=== PATIENT | female | born 1970 | race Caucasian/White ===

== ENCOUNTER 2016-11-27 10:11 | Emergency (ER) | payer MEDICAID ==
[~2016-11-27] VITALS: Ht 160 cm; Wt 52.6 kg
[~2016-11-27 10:11] MED LIST: ACHYD1T PO; CETI5TAB6 PO; CITA20TA4 PO; DCS100C PO; DICY10CA26 PO; FEXO180T84 PO; FLUT10SP NS; FLUT9.9S NS; IBP800T PO; LACT1CAP62 PO; LORA1TAB PO; MELA1TAB9 PO; MULT-963 PO; OMEG1CAP51 PO; ONDA8TAB13 PO; PROBIOTIC1 EACH PO; THIA50TA7 PO; TRM50T PO
--- OUTSIDE RECORDS SUMMARY | 2016-11-27 10:19 | XMS REPORT | Continuity of Care Document ---
Author Author Interface Organization Interface Address Unknown Phone Unavailable Problems Problem Status Onset Date Classification Date Reported Comments Source Medications Medication Details Route Status Patient Instructions Ordering Provider Order Date Source Allergies, Adverse Reactions, Alerts Substance Category Reaction Severity Reaction type Status Date Reported Comments Source Immunizations Immunization Date Given Site Status Last Updated Comments Source Results Order Name Results Value Reference Range Date Interpretation Comments Source Vital Signs Vital Sign Value Date Comments Source Encounters Location Location Details Encounter Type Encounter Number Reason For Visit Attending Provider ADM Date DC Date Status Source CMB CMB REF [id number] lab work Yvonne Swain 08/16/[address] [facility] Procedures Procedure Code Date Perfomer Comments Source
[2016-11-27 10:45] LABS: BASOPHILS % (AUTO) 0 % (0-10); EOSINOPHILS % (AUTO) 0 % (0-10); LYMPHOCYTES # (AUTO) 1.7 X 10^3 (1.0-4.0); LYMPHOCYTES % (AUTO) 14 % (12-44); MEAN CORPUSCULAR HEMOGLOBIN 31 PG (25-34); MEAN CORPUSCULAR HGB CONC 35 G/DL (32-36); MEAN CORPUSCULAR VOLUME 90 FL (80-99); MEAN PLATELET VOLUME 8.9 FL (7.4-10.4); MONOCYTES # (AUTO) 0.4 X 10^3 (0.0-1.0); MONOCYTES % (AUTO) 3 % (0-12); NEUTROPHILS # (AUTO) 10.7 X 10^3 (1.8-7.8); NEUTROPHILS % (AUTO) 83 % (42-75); PLATELET COUNT 282 10^3/uL (130-400); RED BLOOD COUNT 5.09 10^6/uL (4.35-5.85); RED CELL DISTRIBUTION WIDTH 13.2 % (10.0-14.5); WHITE BLOOD COUNT 12.9 10^3/uL (4.3-11.0)
[2016-11-27 10:45] LABS: BILIRUBIN,URINE NEGATIVE (NEGATIVE); KETONES,URINE 4+ (NEGATIVE); LEUKOCYTE ESTERASE ,URINE NEGATIVE (NEGATIVE); NITRITE,URINE NEGATIVE (NEGATIVE); PH,URINE 5 (5-9); PROTEIN,URINE 1+ (NEGATIVE); UROBILINOGEN,URINE NORMAL (NORMAL)
[2016-11-27] MEDS ORDERED: LORazepam INJ 2 MG/ML (ATIVAN) VIAL IVP ONE ×2 (10:45→11:30)
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
[2016-11-27 10:59] LABS: WBC,URINE 0-2 /HPF
[2016-11-27] MEDS: LACTATED RINGERS 1,000 ML IV SCH ×4 (11:00→12:25)
[2016-11-27 11:02] LABS: ALANINE AMINOTRANSFERASE 34 U/L (0-55); ALBUMIN 4.6 G/DL (3.2-4.5); ANION GAP 17 MMOL/L (5-14); ASPARTATE AMINO TRANSFERASE 64 U/L (5-34); BILIRUBIN,TOTAL 0.9 MG/DL (0.1-1.0); BLOOD UREA NITROGEN 22 MG/DL (7-18); BUN/CREATININE RATIO 24; CALCIUM 9.7 MG/DL (8.5-10.1); CARBON DIOXIDE 21 MMOL/L (21-32); CHLORIDE 96 MMOL/L (98-107); GFR ESTIMATED > 60; GLUCOSE 195 MG/DL (70-105); POTASSIUM 4.3 MMOL/L (3.6-5.0); SODIUM 134 MMOL/L (135-145); TOTAL PROTEIN 7.4 G/DL (6.4-8.2)
[2016-11-27 11:05] LABS: ALCOHOL < 10 MG/DL (<10)
[2016-11-27 11:22] LABS: THYROID STIMULATING HORMONE 0.58 UIU/ML (0.35-4.94)
[2016-11-27] MEDS ORDERED: CHLO25CA10 PO (11:48)
[2016-11-27 14:02] VITALS: BP 125/71
== END 2016-11-27 14:02 | disposition home or self-care (01) ==
LOC: EDUNIT# 10:11 → ER 10:15
DX: K52.9 Noninfective gastroenteritis and colitis, unspecified (principal); F10.231 Alcohol dependence with withdrawal delirium; F41.9 Anxiety disorder, unspecified
CPT/HCPCS: 36415; 80053; 80306; 80320; 81000; 84443; 85025; 85610; 96374; 96376

== ENCOUNTER 2017-11-13 10:38 | Emergency (ER) | payer MEDICAID ==
[~2017-11-13] VITALS: Ht 160 cm; Wt 52.6 kg
[~2017-11-13 10:38] MED LIST changes: +CHLO25CA10 PO
--- OUTSIDE RECORDS SUMMARY | 2017-11-13 11:08 | XMS REPORT ---
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 Active Problem DTAP TEST V06.1 Active 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 Problem Need for prophylactic vaccination and inoculation, Influenza V04.81 Active Problem Bipolar disorder, unspecified 296.80 Active Problem Hemorrhoids 455.6 Active Problem Alcoholism 303.90 Active Problem Allergic rhinitis due to pollen 477.0 Active Problem Unspecified breast screening V76.10 Active Problem Constipation 564.00 Active Problem POLIO (IPV) DX V04.0 Active Problem Routine general medical examination at health care facility V70.0 Active Problem Abdominal pain, right lower quadrant 789.03 Active Problem Environmental allergies V15.09 Active Problem Pain in joint, shoulder region 719.41 Active Problem MMR DX V06.4 Active Problem STATE HEP A (ADULT) DX V05.3 Active Problem Pain in soft tissues of limb 729.5 Active Problem VARICELLA DX V05.4 Active Problem Other atopic dermatitis and related conditions 691.8 Active Problem Unspecified sleep disturbance 780.50 Active Problem Pain in joint, forearm 719.43 Active Problem Abdominal pain, right upper quadrant 789.01 Active Medications No Known Medications Procedures Procedure Coding System Code Date SINGLE IMMUNIZATION ADMIN CPT-4 20922 Sep 27, 2015 FLUARIX QUAD (3 & UP)-GSK-2014 CPT-4 00305 Sep 27, 2015 Results No Known Results Immunizations Vaccine Administration Date FLUARIX QUAD (3 & UP)-GSK-2014Sep 27, 2015 Summary Purpose eClinical[employer] Submission
--- OUTSIDE RECORDS SUMMARY | 2017-11-13 11:08 | XMS REPORT | Continuity of Care Document ---
Author Author [employer] Organization [facility] Address Unknown Phone Unavailable Care Team Providers Care Acidizer Water Well Name Role Phone [employer] Unavailable Unavailable Problems Medications Allergies, Adverse Reactions, Alerts Immunizations Results Vital Signs Encounters Procedures Plan of Care Social History Assessment and Plan Family History Value Date Source Advance Directives Order Name Results Value Date Source
--- OUTSIDE RECORDS SUMMARY | 2017-11-13 11:08 | XMS REPORT ---
Author BRUNILDA Sandoval Organization [employer] Address Unknown Phone Unavailable Care Team Providers Care Roof Tiler Name Role Phone BRUNILDA ARNETT CP Unavailable Allergies No Known Allergies Problems Problem Type Condition Code Onset Dates Condition Status Problem Insomnia G47.00 Active Assessment Encounter for immunization Z23 Active Problem Environmental allergies Z91.09 Active Medications No Known Medications Procedures Procedure Coding System Code Date SINGLE IMMUNIZATION ADMIN CPT-4 27966 Oct 05, 2016 FLUARIX QUAD P-FREE 3 AND UP .50 2015 CPT-4 58356 Oct 05, 2016 Results No Known Results Immunizations Vaccine Administration Date FLUARIX QUAD P-FREE 3 AND UP .50 2015Oct 05, 2016 Summary Purpose e[employer]Works Submission
--- OUTSIDE RECORDS SUMMARY | 2017-11-13 11:08 | XMS REPORT ---
Author Author TRACE ZIMMERMAN [facility] Address [address] [place] [address] Care Team Providers Care Senior Government Program Analyst Name Role Phone TRACE ZIMMERMAN Unavailable PROBLEMS Type Condition ICD9-CM Code [id number] Code Onset Dates Condition Status SNOMED Code Problem Alcohol consumption binge drinking F10.10 Active 175031185 Problem Alcohol use disorder, severe, dependence F10.20 Active 583871132 Problem Environmental allergies Z91.09 Active 588922347 Problem Insomnia G47.00 Active 842741738 ALLERGIES Unknown Allergies SOCIAL HISTORY No smoking Hx information available PLAN OF CARE VITAL SIGNS MEDICATIONS Unknown Medications RESULTS No Results PROCEDURES Procedure Date Ordered Related Diagnosis Body Site Alcohol and/or drug services Dec 03, 2016 IMMUNIZATIONS No Known Immunizations
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
--- OUTSIDE RECORDS SUMMARY | 2017-11-13 11:09 | XMS REPORT ---
Author Author PETR JENNINGS Organization [facility] Address [address] [place] [address] Care Team Providers Care Stock Selector Name Role Phone PETR JENNINGS Unavailable PROBLEMS Type Condition ICD9-CM Code [id number] Code Onset Dates Condition Status SNOMED Code Problem Alcohol consumption binge drinking F10.10 Active 090677379 Problem Alcohol use disorder, severe, dependence F10.20 Active 477089522 Problem Environmental allergies Z91.09 Active 832825262 Problem Insomnia G47.00 Active 151489793 ALLERGIES Unknown Allergies SOCIAL HISTORY No smoking Hx information available PLAN OF CARE VITAL SIGNS MEDICATIONS Unknown Medications RESULTS No Results PROCEDURES No Known procedures IMMUNIZATIONS No Known Immunizations
--- OUTSIDE RECORDS SUMMARY | 2017-11-13 11:09 | XMS REPORT ---
Author Author BARRON VAMSI Organization [facility] Address [address] [place] [address] Care Team Providers Care Road Production General Manager Name Role Phone VAMSI MART Unavailable PROBLEMS Type Condition ICD9-CM Code GCF78-QI Code Onset Dates Condition Status SNOMED Code Problem Mixed hyperlipidemia E78.2 Active 303501275 Problem Generalized anxiety disorder F41.1 Active 50154059 Problem ADHD (attention deficit hyperactivity disorder), combined type F90.2 Active 42953352 Problem Environmental allergies Z91.09 Active 688508182 Problem Insomnia G47.00 Active 661746039 Problem Alcohol consumption binge drinking F10.10 Active 189920553 Problem Alcohol use disorder, severe, dependence F10.20 Active 527881665 ALLERGIES No Information SOCIAL HISTORY Never Assessed PLAN OF CARE VITAL SIGNS MEDICATIONS Unknown [...]
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
--- OUTSIDE RECORDS SUMMARY | 2017-11-13 11:09 | XMS REPORT ---
Author Author TRACE ZIMMERMAN [facility] Address [address] [place] [address] Care Team Providers Care Scorer Helper Name Role Phone ERASMOTRACE Unavailable PROBLEMS Type Condition ICD9-CM Code CNT44-DK Code Onset Dates Condition Status SNOMED Code Problem Alcohol consumption binge drinking F10.10 Active 841957647 Problem Alcohol use disorder, severe, dependence F10.20 Active 089940610 Assessment Alcohol use disorder, severe, dependence F10.20 Sep, Active 170503626 Problem Environmental allergies Z91.09 Active 957482029 Problem Insomnia G47.00 Active 941296003 ALLERGIES Substance Reaction Event Type Date Status Codeine Sulfate itching Drug Allergy Sep, Active Amitriptyline 25 Mg Tablet Unknown Non Drug Allergy Sep, Active Celexa 20 Mg Tablet excessive somnolence and lack of balance Non Drug Allergy Sep, Active Fanapt 6 Mg Tablet excessive somnolence and lack of balance Non Drug Allergy Sep, Active SOCIAL HISTORY No smoking Hx information available PLAN OF CARE VITAL SIGNS Height 64 in 2016-10-21 Weight 116.3 lbs 2016-10-21 Heart Rate 92 bpm 2016-10-21 Respiratory Rate 18 2016-10-21 BMI 19.96 kg/m2 2016-10-21 Blood pressure systolic 118 mmHg 2016-10-21 Blood pressure diastolic 94 mmHg 2016-10-21 MEDICATIONS Medication Instructions Dosage Frequency Start Date End Date Duration Status Fish Oil Concentrate once daily March, Active Multivitamin once daily March, Active ProAir HFA 108 (90 Base) MCG/ACT Inhalation every 4 hrs 2 puffs as needed 4h Jan, 14 days Active Flonase 50 MCG/ACT Nasally Once a day 1 spray in each nostril 24h 30 Active Probiotic Formula 10 billion cell (2 billion ea) once daily March, Active L-Glutamine 500 MG Orally Once a day 2 tablets 24h Active Magnesium 200 mg Orally Once a day 1 tablet 24h Active RESULTS No Results PROCEDURES Procedure Date Ordered Related Diagnosis Body Site Office Visit, Est Pt., Level 4 Oct 21, 2016 IMMUNIZATIONS No Known Immunizations
--- OUTSIDE RECORDS SUMMARY | 2017-11-13 11:09 | XMS REPORT ---
Author JD Snowden [facility] eClinicalWorks Address Unknown Phone Unavailable Care Team Providers Care Manager Of Warehouse Name Role Phone JD PRUETT CP Unavailable Allergies, Adverse Reactions, Alerts Substance Reaction Event Type Celexa 20 Mg Tablet excessive somnolence and lack of balance Non Drug Allergy Fanapt 6 Mg Tablet excessive somnolence and lack of balance Non Drug Allergy Amitriptyline 25 Mg Tablet Info Not Available Non Drug Allergy Problems Problem Type Condition ICD-9 Code Onset Dates Condition Status Assessment Acute upper respiratory infection 465.9 Active Problem Personal history of other allergy, [...] pain, right upper quadrant 789.01 Active Medications Medication Code System Code Instructions Start Date End Date Status Dosage Cetirizine HCl [facility] [place] [address]-02 10 MG Orally Once a day prn June 14, 2015 Sep 12, 2015 1 tablet as needed Multivitamin [facility] [place] [address] April 21, 2013 once daily Probiotic Formula [facility] [place] [address]-09 10 billion cell (2 billion ea) March once daily Fish Oil Concentrate [facility] [place] [address] April 21, 2013 once daily Flonase [facility] [place] [address]-73 50 MCG/ACT Nasally Once a day June 14, 2015 1 spray in each nostril Procedures Procedure Coding System Code Date Office Visit, Est Pt., Level 2 CPT-4 45070 Jul 18, 2015 Vital Signs Date/Time: Jul 18, 2015 Temperature 98.9 F Weight 120 lbs Height 64 in BMI 20.60 Index Blood Pressure Diastolic 68 mmHg Blood Pressure Systolic 138 mmHg Cardiac Monitoring Heart Rate 78 bpm Results No Known Results Summary Purpose eClinicalWorks Submission
--- OUTSIDE RECORDS SUMMARY | 2017-11-13 11:09 | XMS REPORT ---
Author [facility] Address [address] [place] [address] Care Team Providers Care Gerentological Physiotherapist Name Role Phone ERASMO IYER Unavailable PROBLEMS Type Condition ICD9-CM Code TCL32-[id number] Code Onset Dates Condition Status SNOMED Code Problem Alcohol consumption binge drinking F10.10 Active 979964622 Problem Alcohol use disorder, severe, dependence F10.20 Active 953193130 Problem Environmental allergies Z91.09 Active 224035004 Problem Insomnia G47.00 Active 095511849 ALLERGIES Unknown Allergies SOCIAL HISTORY No smoking Hx information available PLAN OF CARE VITAL SIGNS MEDICATIONS Unknown Medications RESULTS No Results PROCEDURES No Known procedures IMMUNIZATIONS No Known Immunizations
--- OUTSIDE RECORDS SUMMARY | 2017-11-13 11:09 | XMS REPORT ---
Author Author JAVIER SHEEHAN [facility] Address [address] [place] [address] Care Team Providers Care Hebrew Professor Name Role Phone JAVIER SHEEHAN Unavailable PROBLEMS Type Condition ICD9-CM Code [id number] Code Onset Dates Condition Status SNOMED Code Problem Environmental allergies Z91.09 Active 978322380 Problem Insomnia G47.00 Active 614061875 Assessment Acute sinusitis, recurrence not specified, unspecified location J01.90 Jul, Active 51951914 ALLERGIES Substance Reaction Event Type Date Status Codeine Sulfate itching Drug Allergy Jul, Active Amitriptyline 25 Mg Tablet Unknown Non Drug Allergy Jul, Active Celexa 20 Mg Tablet excessive somnolence and lack of balance Non Drug Allergy Jul, Active Fanapt 6 Mg Tablet excessive somnolence and lack of balance Non Drug Allergy Jul, Active SOCIAL HISTORY No smoking Hx information available PLAN OF CARE VITAL SIGNS Height 64 in 2016-08-21 Weight 118.2 lbs 2016-08-21 Heart Rate 60 bpm 2016-08-21 Respiratory Rate 20 2016-08-21 BMI 20.29 kg/m2 2016-08-21 Blood pressure systolic 112 mmHg 2016-08-21 Blood pressure diastolic 70 mmHg 2016-08-21 MEDICATIONS Medication Instructions Dosage Frequency Start Date End Date Duration Status Singulair 10 mg Orally Once a day 1 tablet in the evening 24h Jun, 30 day(s) Active Probiotic Formula 10 billion cell (2 billion ea) once daily March, Active Multivitamin once daily March, Active Magnesium 200 MG Orally Once a day 2 tablets with a meal 24h Active Zithromax Z-Shane 250 MG Orally Once a day 2 tablets on the first day, then 1 tablet daily for 4 days 24h Jul, Aug, 5 day(s) Active Fish Oil Concentrate once daily March, Active Flonase 50 MCG/ACT Nasally Once a day 1 spray in each nostril 24h 30 Active L-Glutamine 500 MG Active RESULTS No Results PROCEDURES Procedure Date Ordered Related Diagnosis Body Site Office Visit, Est Pt., Level 3 Aug 21, 2016 IMMUNIZATIONS No Known Immunizations
--- NOTE | 2017-11-13 11:11 | ED General ---
General Chief Complaint: General Problems/Pain Stated Complaint: BROKEN FINGER Source of Information: Patient Exam Limitations: No Limitations History of Present Illness Time Seen by Provider: 11:10 Initial Comments We are coming by her mother with reports of a possibly broken right pointer finger. Upon further conversation she reports that she is a binge drinker and punched a glass window 4 days ago. She has not been able to eat or drink since then due to persistent nausea. Denies abdominal pain. Timing/Duration: 3-4 Days Severity: Moderate Allergies and Home Medications Allergies Coded Allergies: acetaminophen (Verified Allergy, Unknown, 07/14/15) codeine (Verified Allergy, Unknown, 07/14/15) hydrocodone (Verified Allergy, Unknown, 07/14/15) oxycodone (Verified Allergy, Unknown, 07/14/15) propoxyphene (Verified Allergy, Unknown, 07/14/15) Home Medications No Active Prescriptions or Reported Meds Constitutional: see HPI EENTM: see HPI Respiratory: no symptoms reported Cardiovascular: no symptoms reported Gastrointestinal: No abdominal pain, nausea Genitourinary: no symptoms reported Musculoskeletal: no symptoms reported Skin: no symptoms reported Psychiatric/Neurological: No Symptoms Reported Past [id number] Hx Patient Social History Alcohol Use: Occasionally Uses Number of Drinks Today: FF Alcohol Beverage of Choice: Vodka Recreational Drug Use: No Smoking Status: Current Everyday Smoker Type Used: Cigarettes Recent Foreign Travel: No Contact w/Someone Who Travel: No Recent Hopitalizations: No Immunizations Up To Date Date of Influenza Vaccine: Aug 24, 2014 Seasonal Allergies Seasonal Allergies: Yes Surgeries History of Surgeries: Yes Surgeries: Breast, Gallbladder, 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 Respiratory History of Respiratory Disorde: No Cardiovascular History of Cardiac Disorders: No Neurological History of Neurological Disord: No Reproductive System Hx Reproductive Disorders: No Sexually Transmitted Disease: No HORTICULTURAL MANAGER 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: 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 Gastrointestinal History of Gastrointestinal Di: No Musculoskeletal History of Musculoskeletal Dis: No Endocrine History of Endocrine Disorders: No Cancer History of Cancer: No Psychosocial History of Psychiatric Problem: Yes Behavioral Health Disorders: ADD/ADHD, Anxiety, Bipolar, Depression Integumentary History of Skin or Integumenta: No Blood Transfusions History of Blood Disorders: No Physical Exam Vital Signs Vital Sign - Last 12Hours 11/13/17 10:46 Temp 98.2 Pulse 110 Resp 18 B/P (MAP) 144/115 (125) Pulse Ox 98 O2 Delivery Room Air Capillary Refill : General Appearance: No Apparent Distress, WD/WN Eyes: Bilateral Eye Normal Inspection, Bilateral Eye PERRL, Bilateral Eye EOMI HEENT: PERRL/EOMI, TMs Normal Neck: Full Range of Motion, Normal Inspection Respiratory: Normal Breath Sounds, No Accessory Muscle Use, No Respiratory Distress Cardiovascular: Regular Rate, Rhythm, Normal Peripheral Pulses Gastrointestinal: Normal Bowel Sounds, Non Tender, Soft Extremity: Normal Capillary Refill, Normal Inspection Neurologic/Psychiatric: Alert, Oriented x3 Skin: Normal Color, Warm/Dry Progress/Results/Core Measures Suspected Sepsis SIRS Temperature: Pulse: Respiratory Rate: Laboratory Tests 11/13/17 11:06: White Blood Count 11.6H Blood Pressure / Mean: Laboratory Tests 11/13/17 11:06: Platelet Count 332 Results/Orders Lab Results Laboratory Tests Test 11/13/17 11:06 Range/Units White Blood Count 11.6 H 4.3-11.0 10^3/uL Red Blood Count 5.07 4.35-5.85 10^6/uL Hemoglobin 16.2 H 11.5-16.0 G/DL Hematocrit 46 35-52 % Mean Corpuscular Volume 91 80-99 FL Mean Corpuscular Hemoglobin 32 25-34 PG Mean Corpuscular Hemoglobin Concent 35 32-36 G/DL Red Cell Distribution Width 13.2 10.0-14.5 % Platelet Count 332 130-400 10^3/uL Mean Platelet Volume 8.8 7.4-10.4 FL Neutrophils (%) (Auto) 76 H 42-75 % Lymphocytes (%) (Auto) 15 12-44 % Monocytes (%) (Auto) 9 0-12 % Eosinophils (%) (Auto) 0 0-10 % Basophils (%) (Auto) 0 0-10 % Neutrophils # (Auto) 8.8 H 1.8-7.8 X 10^3 Lymphocytes # (Auto) 1.7 1.0-4.0 X 10^3 Monocytes # (Auto) 1.1 H 0.0-1.0 X 10^3 Eosinophils # (Auto) 0.0 0.0-0.3 10^3/uL Basophils # (Auto) 0.0 0.0-0.1 10^3/uL My Orders Orders - EVITA SLATER APRN Cbc With Automated Diff (11/13/17 11:02) Comprehensive Metabolic Panel (11/13/17 11:02) Lipase (11/13/17 11:02) Ua Culture If Indicated (11/13/17 11:02) Alcohol (11/13/17 11:02) Hand, Right, 3 Views (11/13/17 11:02) Famotidine Injection (Pepcid Injection) (11/14/17 09:00) Antacid Suspension (Mylanta Suspension (11/13/17 11:15) Lidocaine 2% Viscous 15 Ml (Xylocaine Vi (11/13/17 11:15) Ns Iv 1000 Ml (Sodium Chloride 0.9%) (11/13/17 11:15) Promethazine Injection (Phenergan Injec (11/13/17 11:15) Famotidine Injection (Pepcid Injection) (11/13/17 11:14) Medications Given in ED Current Medications Medications Dose Ordered Sig/Es Route Start Time Stop Time Status Last Admin Dose Admin Al Hydrox/Mg Hydrox/Simethicone 30 ml ONCE ONCE PO 11/13/17 11:15 11/13/17 11:16 DC 11/13/17 11:09 30 ML Lidocaine HCl 15 ml ONCE ONCE PO 11/13/17 11:15 11/13/17 11:16 DC 11/13/17 11:10 15 ML Promethazine HCl 25 mg ONCE ONCE IVP 11/13/17 11:15 11/13/17 11:16 DC 11/13/17 11:11 25 MG Vital Signs/I&O Vital Sign - Last 12Hours 11/13/17 10:46 Temp 98.2 Pulse 110 Resp 18 B/P (MAP) 144/115 (125) Pulse Ox 98 O2 Delivery Room Air Capillary Refill : Departure Impression Impression: Primary Impression: Nausea and vomiting Additional Impression: Avulsion of skin of finger Disposition: 01 HOME, SELF-CARE Condition: Stable Departure-Patient Inst. Decision time for Depature: 11:14 Referrals: [facility] (PCP/Family) Primary Care Physician Patient Instructions: ALCOHOL AND SUBSTANCE ABUSE Add. Discharge Instructions: 1. Return to ER for any concerns All discharge instructions reviewed with patient and/or family. Voiced understanding. Scripts Cephalexin (Keflex) 500 Mg Capsule 500 MG PO Q6H, #28 CAP Prov: EVITA SLATER [employer] ELECTRIC INSTALLER 11/13/17 Ondansetron (Zofran Odt) 8 Mg Tab.rapdis 8 MG PO Q6H Y for NAUSEA/VOMITING-1ST LINE, #10 TAB Prov: EVITA SLATER APRN 11/13/17 EVITA SLATER APRN Nov 13, 2017 11:11
--- OUTSIDE RECORDS SUMMARY | 2017-11-13 11:11 | XMS REPORT | Continuity of Care Document ---
Author Author [facility] Address Unknown Phone Unavailable Allergies Active Description Code Type Severity Reaction Onset Reported/Identified Relationship to Patient Clinical Status Yes codeine Drug Allergy N/A N/A 01/22/2010 Yes Penicillins Drug Allergy N/A N/A 01/22/2010 Yes codeine Drug Allergy 01/22/2010 Yes Penicillins Drug Allergy 01/22/2010 Yes amitriptyline 25 mg tablet Drug Allergy N/A N/A 02/16/2013 Yes amitriptyline 25 mg tablet Drug Allergy 02/16/2013 Yes Celexa 20 mg tablet Drug Allergy N/A N/A 11/25/2013 Yes Fanapt 6 mg tablet Drug Allergy N/A N/A 11/25/2013 Yes acetaminophen [id number] Drug Allergy Unknown N/A 07/14/2015 Yes codeine [id number] Drug Allergy Unknown N/A 07/14/2015 Yes hydrocodone [id number] Drug Allergy Unknown N/A 07/14/2015 Yes oxycodone [id number] Drug Allergy Unknown N/A 07/14/2015 Yes propoxyphene [id number] Drug Allergy Unknown N/A 07/14/2015 Medications There is no data. Problems Date Dx Coded Attending Type Code Diagnosis Diagnosed By 01/22/2010 625.3 DYSMENORRHEA 01/22/2010 626.2 MENORRHAGIA 01/22/2010 692.89 DERMATITIS DUE TO COLD WEATHER 01/22/2010 625.3 DYSMENORRHEA 01/22/2010 626.2 MENORRHAGIA 01/22/2010 692.89 DERMATITIS DUE TO COLD WEATHER 01/22/2010 625.3 DYSMENORRHEA 01/22/2010 626.2 MENORRHAGIA 01/22/2010 692.89 DERMATITIS DUE TO COLD WEATHER 01/22/2010 625.3 DYSMENORRHEA 01/22/2010 626.2 MENORRHAGIA 01/22/2010 692.89 DERMATITIS DUE TO COLD WEATHER 01/22/2010 ZIMMERMAN DO, TRACE K 625.3 DYSMENORRHEA 01/22/2010 ZIMMERMAN DO, TRACE K 626.2 MENORRHAGIA 01/22/2010 ZIMMERMAN DO, TRACE K 692.89 DERMATITIS DUE TO COLD WEATHER 01/22/2010 625.3 DYSMENORRHEA 01/22/2010 626.2 MENORRHAGIA 01/22/2010 692.89 DERMATITIS DUE TO COLD WEATHER 01/22/2010 625.3 DYSMENORRHEA 01/22/2010 626.2 MENORRHAGIA 01/22/2010 692.89 DERMATITIS DUE TO COLD WEATHER 01/22/2010 625.3 DYSMENORRHEA 01/22/2010 626.2 MENORRHAGIA 01/22/2010 692.89 DERMATITIS DUE TO COLD WEATHER 01/22/2010 625.3 DYSMENORRHEA 01/22/2010 626.2 MENORRHAGIA 01/22/2010 692.89 DERMATITIS DUE TO COLD WEATHER 01/22/2010 625.3 DYSMENORRHEA 01/22/2010 626.2 MENORRHAGIA 01/22/2010 692.89 DERMATITIS DUE TO COLD WEATHER 01/22/2010 MATT YA, FABIAN Purcell 625.3 DYSMENORRHEA 01/22/2010 MATT PHD, FABIAN Purcell 626.2 MENORRHAGIA 01/22/2010 MATT YA, FABIAN Purcell 692.89 DERMATITIS DUE TO COLD WEATHER 01/22/2010 JAVIER SHEEHAN APRN 625.3 DYSMENORRHEA 01/22/2010 JAVIER SHEEHAN APRN 626.2 MENORRHAGIA 01/22/2010 JAVIER SHEEHAN APRN 692.89 DERMATITIS DUE TO COLD WEATHER 01/22/2010 JAVIER SHEEHAN APRN 625.3 DYSMENORRHEA 01/22/2010 JAVIER SHEEHAN APRN 626.2 MENORRHAGIA 01/22/2010 JAVIER SHEEHAN APRN 692.89 DERMATITIS DUE TO COLD WEATHER 01/22/2010 FABIAN GUTIERREZ PHD 625.3 DYSMENORRHEA 01/22/2010 MATT YA, FABIAN Purcell 626.2 MENORRHAGIA 01/22/2010 MATT YA, FABIAN A 692.89 DERMATITIS DUE TO COLD WEATHER 01/22/2010 WILFREDO RENTERIA APRN 625.3 DYSMENORRHEA 01/22/2010 RENTERIA APRN, WILFREDO OROURKE 626.2 MENORRHAGIA 01/22/2010 RENTERIA YA, WILFREDO OROURKE 692.89 DERMATITIS DUE TO COLD WEATHER 01/22/2010 ZIMMERMAN DO, TRACE K 625.3 DYSMENORRHEA 01/22/2010 ZIMMERMAN DO, TRACE K 626.2 MENORRHAGIA 01/22/2010 ZIMMERMAN DO, TRACE K 692.89 DERMATITIS DUE TO COLD WEATHER 01/22/2010 BOECONCEPCION PHD, FABIAN A 625.3 DYSMENORRHEA 01/22/2010 BOEORIANAOUT PHD, FABIAN A 626.2 MENORRHAGIA 01/22/2010 BOEORIANAOUT PHD, FABIAN A 692.89 DERMATITIS DUE TO COLD WEATHER 01/22/2010 MATT PHD, FABIAN A 625.3 DYSMENORRHEA 01/22/2010 BOEORIANAOUT PHD, FABIAN A 626.2 MENORRHAGIA 01/22/2010 BOEORIANAOUT PHD, FABIAN A 692.89 DERMATITIS DUE TO COLD WEATHER 01/22/2010 MYRA PANDYA WILFREDO OROURKE 625.3 DYSMENORRHEA 01/22/2010 MYRA PANDYA, WILFREDO OROURKE 626.2 MENORRHAGIA 01/22/2010 MYRA PANDYA, WILFREDO OROURKE 692.89 DERMATITIS DUE TO COLD WEATHER 01/22/2010 ZOEY BETANCUR APRN, TRISTON N 625.3 DYSMENORRHEA 01/22/2010 ZOEY BETANCUR APRN, TRISTON N 626.2 MENORRHAGIA 01/22/2010 ZOEY BETANCUR APRN, TRISTON N 692.89 DERMATITIS DUE TO COLD WEATHER 01/22/2010 BOECONCEPCION PHD, FABIAN A 625.3 DYSMENORRHEA 01/22/2010 BOECONCEPCION PHD, FABIAN A 626.2 MENORRHAGIA 01/22/2010 BOECONCEPCION PHD, FABIAN A 692.89 DERMATITIS DUE TO COLD WEATHER 01/22/2010 MATT PHD, FABIAN A 625.3 DYSMENORRHEA 01/22/2010 BOEORIANAOUT PHD, FABIAN A 626.2 MENORRHAGIA 01/22/2010 BOEORIANAOUT PHD, FABIAN A 692.89 DERMATITIS DUE TO COLD WEATHER 01/22/2010 JAVIER SHEEHAN APRN 625.3 DYSMENORRHEA 01/22/2010 JAVIER SHEEHAN APRN 626.2 MENORRHAGIA 01/22/2010 JAVIER SHEEHAN APRN 692.89 DERMATITIS DUE TO COLD WEATHER 01/22/2010 JAVIER SHEEHAN APRN 625.3 DYSMENORRHEA 01/22/2010 JAVIER SHEEHAN APRN 626.2 MENORRHAGIA 01/22/2010 JAVIER SHEEHAN APRN 692.89 DERMATITIS DUE TO COLD WEATHER 01/22/2010 ZIMMERMAN DO, TRACE K 625.3 DYSMENORRHEA 01/22/2010 ZIMMERMAN DO, TRACE K 626.2 MENORRHAGIA 01/22/2010 ZIMMERMAN DO, TRACE K 692.89 DERMATITIS DUE TO COLD WEATHER 01/22/2010 YASIR EPPERSONN, LIAM R 625.3 DYSMENORRHEA 01/22/2010 YASIR EPPERSONN, LIAM R 626.2 MENORRHAGIA 01/22/2010 YASIR EPPERSONN, LIAM R 692.89 DERMATITIS DUE TO COLD WEATHER 01/22/2010 YASIR PANDYA, LIAM R 625.3 DYSMENORRHEA 01/22/2010 YASIR EPPERSONN, LIAM R 626.2 MENORRHAGIA 01/22/2010 YASIR EPPERSONN, LIAM R 692.89 DERMATITIS DUE TO COLD WEATHER 01/22/2010 YASIR EPPERSONN, LIAM R 625.3 DYSMENORRHEA 01/22/2010 YASIR EPPERSONN, LIAM R 626.2 MENORRHAGIA 01/22/2010 YASIR EPPERSONN, LIAM R 692.89 DERMATITIS DUE TO COLD WEATHER 01/22/2010 HANSEL SHIELDS APRNA J 625.3 DYSMENORRHEA 01/22/2010 ALYSON PANDYA, ANGELO J 626.2 MENORRHAGIA 01/22/2010 ALYSON PANDYA, ANGELO J 692.89 DERMATITIS DUE TO COLD WEATHER 01/22/2010 ZIMMERMAN DO, TRACE K 625.3 DYSMENORRHEA 01/22/2010 ZIMMERMAN DO, TRACE K 626.2 MENORRHAGIA 01/22/2010 ZIMMERMAN DO, TRACE K 692.89 DERMATITIS DUE TO COLD WEATHER 01/29/2010 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, UNSPECIFIED 01/29/2010 620.2 OTHER AND UNSPECIFIED OVARIAN CYST 01/29/2010 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, UNSPECIFIED 01/29/2010 620.2 OTHER AND UNSPECIFIED OVARIAN CYST 01/29/2010 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, UNSPECIFIED 01/29/2010 620.2 OTHER AND UNSPECIFIED OVARIAN CYST 01/29/2010 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, UNSPECIFIED 01/29/2010 620.2 OTHER AND UNSPECIFIED OVARIAN CYST 01/29/2010 ZIMMERMAN DO, TRACE K 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, UNSPECIFIED 01/29/2010 ZIMMERMAN DO, TRACE K 620.2 OTHER AND UNSPECIFIED OVARIAN CYST 01/29/2010 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, UNSPECIFIED 01/29/2010 620.2 OTHER AND UNSPECIFIED OVARIAN CYST 01/29/2010 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, UNSPECIFIED 01/29/2010 620.2 OTHER AND UNSPECIFIED OVARIAN CYST 01/29/2010 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, UNSPECIFIED 01/29/2010 620.2 OTHER AND UNSPECIFIED OVARIAN CYST 01/29/2010 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, UNSPECIFIED 01/29/2010 620.2 OTHER AND UNSPECIFIED OVARIAN CYST 01/29/2010 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, UNSPECIFIED 01/29/2010 620.2 OTHER AND UNSPECIFIED OVARIAN CYST 01/29/2010 FABIAN GUTIERREZ PHD 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, UNSPECIFIED 01/29/2010 FABIAN GUTIERREZ PHD 620.2 OTHER AND UNSPECIFIED OVARIAN CYST 01/29/2010 JAVIER SHEEHAN APRN 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, UNSPECIFIED 01/29/2010 JAVIER SHEEHAN APRN 620.2 OTHER AND UNSPECIFIED OVARIAN CYST 01/29/2010 JAVIER SHEEHAN APRN 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, UNSPECIFIED 01/29/2010 JAVIER SHEEHAN APRN 620.2 OTHER AND UNSPECIFIED OVARIAN CYST 01/29/2010 FABIAN GUTIERREZ PHD 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, UNSPECIFIED 01/29/2010 FABIAN GUTIERREZ PHD 620.2 OTHER AND UNSPECIFIED OVARIAN CYST 01/29/2010 WILFREDO RENTERIA APRN 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, UNSPECIFIED 01/29/2010 WILFREDO RENTERIA APRN 620.2 OTHER AND UNSPECIFIED OVARIAN CYST 01/29/2010 ERASMO DO TRACE K 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, UNSPECIFIED 01/29/2010 ERASMO DO TRACE K 620.2 OTHER AND UNSPECIFIED OVARIAN CYST 01/29/2010 BOEOUT PHD, FABIAN A 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, UNSPECIFIED 01/29/2010 BOEKHOUT PHD, FABIAN A 620.2 OTHER AND UNSPECIFIED OVARIAN CYST 01/29/2010 BOEOUT PHD, FABIAN A 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, UNSPECIFIED 01/29/2010 BOEOUT PHD, FABIAN A 620.2 OTHER AND UNSPECIFIED OVARIAN CYST 01/29/2010 RENTERIA TOUCHER UP, WILFREDO OROURKE 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, UNSPECIFIED 01/29/2010 RENTERIA TOUCHER UP, WILFREDO OROURKE 620.2 OTHER AND UNSPECIFIED OVARIAN CYST 01/29/2010 GREER CASHERO TOUCHER UP, TRISTON N 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, UNSPECIFIED 01/29/2010 GREER CASHERO TOUCHER UP, TRISTON N 620.2 OTHER AND UNSPECIFIED OVARIAN CYST 01/29/2010 BOEOUT PHD, FABIAN A 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, UNSPECIFIED 01/29/2010 BOEOUT PHD, FABIAN A 620.2 OTHER AND UNSPECIFIED OVARIAN CYST 01/29/2010 BOEOUT PHD, FABIAN A 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, UNSPECIFIED 01/29/2010 BOEOUT PHD, FABIAN A 620.2 OTHER AND UNSPECIFIED OVARIAN CYST 01/29/2010 JAVIER SHEEHAN APRN 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, UNSPECIFIED 01/29/2010 JAVIER SHEEHAN APRN 620.2 OTHER AND UNSPECIFIED OVARIAN CYST 01/29/2010 JAVIER SHEEHAN APRN 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, UNSPECIFIED 01/29/2010 JAVIER SHEEHAN APRN 620.2 OTHER AND UNSPECIFIED OVARIAN CYST 01/29/2010 ZIMMERMAN DO, TRACE K 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, UNSPECIFIED 01/29/2010 ZIMMERMAN DO, TRACE K 620.2 OTHER AND UNSPECIFIED OVARIAN CYST 01/29/2010 YASIR TOUCHER UP, LIAM R 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, UNSPECIFIED 01/29/2010 YASIR TOUCHER UP, LIAM R 620.2 OTHER AND UNSPECIFIED OVARIAN CYST 01/29/2010 YASIR TOUCHER UP, LIAM R 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, UNSPECIFIED 01/29/2010 YASIR TOUCHER UP, LIAM R 620.2 OTHER AND UNSPECIFIED OVARIAN CYST 01/29/2010 YASIR TOUCHER UP, LIAM R 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, UNSPECIFIED 01/29/2010 YASIR EPPERSONN, LIAM R 620.2 OTHER AND UNSPECIFIED OVARIAN CYST 01/29/2010 ANGELO SHIELDS APRN J 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, UNSPECIFIED 01/29/2010 ANGELO SHIELDS APRN J 620.2 OTHER AND UNSPECIFIED OVARIAN CYST 01/29/2010 TRACE ZIMMERMAN DO K 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, UNSPECIFIED 01/29/2010 TRACE ZIMMERMAN DO K 620.2 OTHER AND UNSPECIFIED OVARIAN CYST 01/18/2011 465.9 UPPER RESPIRATORY INFECTION 01/18/2011 465.9 UPPER RESPIRATORY INFECTION 01/18/2011 465.9 UPPER RESPIRATORY INFECTION 01/18/2011 465.9 UPPER RESPIRATORY INFECTION 01/18/2011 TRACE ZIMMERMAN DO 465.9 UPPER RESPIRATORY INFECTION 01/18/2011 465.9 UPPER RESPIRATORY INFECTION 01/18/2011 465.9 UPPER RESPIRATORY INFECTION 01/18/2011 465.9 UPPER RESPIRATORY INFECTION 01/18/2011 465.9 UPPER RESPIRATORY INFECTION 01/18/2011 465.9 UPPER RESPIRATORY INFECTION 01/18/2011 FABIAN GUTIERREZ PHD A 465.9 UPPER RESPIRATORY INFECTION 01/18/2011 JAVIER SHEEHAN APRN 465.9 UPPER RESPIRATORY INFECTION 01/18/2011 JAVIER SHEEHAN APRN 465.9 UPPER RESPIRATORY INFECTION 01/18/2011 MATT YA, FABIAN A 465.9 UPPER RESPIRATORY INFECTION 01/18/2011 WILFREDO RENTERIA APRN 465.9 UPPER RESPIRATORY INFECTION 01/18/2011 TRACE ZIMMERMAN DO 465.9 UPPER RESPIRATORY INFECTION 01/18/2011 MATT YA, FABIAN A 465.9 UPPER RESPIRATORY INFECTION 01/18/2011 MATT YA, FABIAN A 465.9 UPPER RESPIRATORY INFECTION 01/18/2011 WILFREDO RENTERIA APRN 465.9 UPPER RESPIRATORY INFECTION 01/18/2011 TRISTON GUZMAN APRN 465.9 UPPER RESPIRATORY INFECTION 01/18/2011 FABIAN GUTIERREZ PHD A 465.9 UPPER RESPIRATORY INFECTION 01/18/2011 FABIAN GUTIERREZ PHD A 465.9 UPPER RESPIRATORY INFECTION 01/18/2011 JAVIER SHEEHAN APRN 465.9 UPPER RESPIRATORY INFECTION 01/18/2011 AJVIER SHEEHAN APRN 465.9 UPPER RESPIRATORY INFECTION 01/18/2011 TRACE ZIMMERMAN DO 465.9 UPPER RESPIRATORY INFECTION 01/18/2011 YASIR TOUCHER UP, LIAM R 465.9 UPPER RESPIRATORY INFECTION 01/18/2011 YASIR TOUCHER UP, LIAM R 465.9 UPPER RESPIRATORY INFECTION 01/18/2011 YASIR TOUCHER UP, LIAM R 465.9 UPPER RESPIRATORY INFECTION 01/18/2011 ALYSON TOUCHER UP, ANGELO J 465.9 UPPER RESPIRATORY INFECTION 01/18/2011 TRACE ZIMMERMAN DO 465.9 UPPER RESPIRATORY INFECTION 01/30/2011 473.9 UNSPECIFIED SINUSITIS (CHRONIC) 01/30/2011 473.9 UNSPECIFIED SINUSITIS (CHRONIC) 01/30/2011 473.9 UNSPECIFIED SINUSITIS (CHRONIC) 01/30/2011 473.9 UNSPECIFIED SINUSITIS (CHRONIC) 01/30/2011 TRACE ZIMMERMAN DO 473.9 UNSPECIFIED SINUSITIS (CHRONIC) 01/30/2011 473.9 UNSPECIFIED SINUSITIS (CHRONIC) 01/30/2011 473.9 UNSPECIFIED SINUSITIS (CHRONIC) 01/30/2011 473.9 UNSPECIFIED SINUSITIS (CHRONIC) 01/30/2011 473.9 UNSPECIFIED SINUSITIS (CHRONIC) 01/30/2011 473.9 UNSPECIFIED SINUSITIS (CHRONIC) 01/30/2011 FABIAN GUTIERREZ PHD 473.9 UNSPECIFIED SINUSITIS (CHRONIC) 01/30/2011 JAVIER SHEEHAN APRN 473.9 UNSPECIFIED SINUSITIS (CHRONIC) 01/30/2011 JAVIER SHEEHAN APRN 473.9 UNSPECIFIED SINUSITIS (CHRONIC) 01/30/2011 FABIAN GUTIERREZ PHD 473.9 UNSPECIFIED SINUSITIS (CHRONIC) 01/30/2011 WILFREDO RENTERIA APRN 473.9 UNSPECIFIED SINUSITIS (CHRONIC) 01/30/2011 TRACE ZIMMERMAN DO 473.9 UNSPECIFIED SINUSITIS (CHRONIC) 01/30/2011 FABIAN GUTIERREZ PHD 473.9 UNSPECIFIED SINUSITIS (CHRONIC) 01/30/2011 FABIAN GUITERREZ PHD 473.9 UNSPECIFIED SINUSITIS (CHRONIC) 01/30/2011 WILFREDO RENTERIA APRN 473.9 UNSPECIFIED SINUSITIS (CHRONIC) 01/30/2011 TRISTON GUZMAN APRN 473.9 UNSPECIFIED SINUSITIS (CHRONIC) 01/30/2011 FABIAN GUTIERREZ PHD 473.9 UNSPECIFIED SINUSITIS (CHRONIC) 01/30/2011 MATT YA, FABIAN Purcell 473.9 UNSPECIFIED SINUSITIS (CHRONIC) 01/30/2011 JAVIER SHEEHAN APRN 473.9 UNSPECIFIED SINUSITIS (CHRONIC) 01/30/2011 JAVIER SHEEHAN APRN 473.9 UNSPECIFIED SINUSITIS (CHRONIC) 01/30/2011 TRACE ZIMMERMAN DO 473.9 UNSPECIFIED SINUSITIS (CHRONIC) 01/30/2011 YASIR TOUCHER UP, LIAM R 473.9 UNSPECIFIED SINUSITIS (CHRONIC) 01/30/2011 YASIR TOUCHER UP, LIAM R 473.9 UNSPECIFIED SINUSITIS (CHRONIC) 01/30/2011 YASIR TOUCHER UP, LIAM R 473.9 UNSPECIFIED SINUSITIS (CHRONIC) 01/30/2011 ANGELO SHIELDS APRN 473.9 UNSPECIFIED SINUSITIS (CHRONIC) 01/30/2011 TRACE ZIMMERMAN DO 473.9 UNSPECIFIED SINUSITIS (CHRONIC) 03/01/2011 Ot 626.2 03/01/2011 Ot 626.8 04/12/2011 789.00 ABDOMINAL PAIN UNSPECIFIED SITE 04/12/2011 789.00 ABDOMINAL PAIN UNSPECIFIED SITE 04/12/2011 789.00 ABDOMINAL PAIN UNSPECIFIED SITE 04/12/2011 789.00 ABDOMINAL PAIN UNSPECIFIED SITE 04/12/2011 TRACE ZIMMERMAN DO 789.00 ABDOMINAL PAIN UNSPECIFIED SITE 04/12/2011 789.00 ABDOMINAL PAIN UNSPECIFIED SITE 04/12/2011 789.00 ABDOMINAL PAIN UNSPECIFIED SITE 04/12/2011 789.00 ABDOMINAL PAIN UNSPECIFIED SITE 04/12/2011 789.00 ABDOMINAL PAIN UNSPECIFIED SITE 04/12/2011 789.00 ABDOMINAL PAIN UNSPECIFIED SITE 04/12/2011 FABIAN GUTIERREZ PHD 789.00 ABDOMINAL PAIN UNSPECIFIED SITE 04/12/2011 JAVIER SHEEHAN APRN 789.00 ABDOMINAL PAIN UNSPECIFIED SITE 04/12/2011 JAVIER SHEEHAN APRN 789.00 ABDOMINAL PAIN UNSPECIFIED SITE 04/12/2011 FABIAN GUTIERREZ PHD 789.00 ABDOMINAL PAIN UNSPECIFIED SITE 04/12/2011 WILFREDO RENTERIA APRN 789.00 ABDOMINAL PAIN UNSPECIFIED SITE 04/12/2011 TRACE ZIMMERMAN DO 789.00 ABDOMINAL PAIN UNSPECIFIED SITE 04/12/2011 MATT YA, FABIAN A 789.00 ABDOMINAL PAIN UNSPECIFIED SITE 04/12/2011 MATT YA, FABIAN A 789.00 ABDOMINAL PAIN UNSPECIFIED SITE 04/12/2011 WILFREDO RENTERIA APRN 789.00 ABDOMINAL PAIN UNSPECIFIED SITE 04/12/2011 GREERESTHER BETANCUR APRN TRISTON N 789.00 ABDOMINAL PAIN UNSPECIFIED SITE 04/12/2011 MATT YA, FABIAN Purcell 789.00 ABDOMINAL PAIN UNSPECIFIED SITE 04/12/2011 MATT YA, FABIAN A 789.00 ABDOMINAL PAIN UNSPECIFIED SITE 04/12/2011 JAVIER SHEEHAN APRN 789.00 ABDOMINAL PAIN UNSPECIFIED SITE 04/12/2011 JAVIER SHEEHAN APRN 789.00 ABDOMINAL PAIN UNSPECIFIED SITE 04/12/2011 TRACE ZIMMERMAN DO 789.00 ABDOMINAL PAIN UNSPECIFIED SITE 04/12/2011 YASIR PANDYA, LIAM R 789.00 ABDOMINAL PAIN UNSPECIFIED SITE 04/12/2011 YASIR PANDYA LIAM R 789.00 ABDOMINAL PAIN UNSPECIFIED SITE 04/12/2011 YASIR PANDYA, LIAM R 789.00 ABDOMINAL PAIN UNSPECIFIED SITE 04/12/2011 ANGELO SHIELDS APRN 789.00 ABDOMINAL PAIN UNSPECIFIED SITE 04/12/2011 TRACE ZIMMERMAN DO 789.00 ABDOMINAL PAIN UNSPECIFIED SITE 06/12/2011 300.00 AN ANXIETY UNSPEC 06/12/2011 300.00 AN ANXIETY UNSPEC 06/12/2011 300.00 AN ANXIETY UNSPEC 06/12/2011 300.00 AN ANXIETY UNSPEC 06/12/2011 TRACE ZIMMERMAN DO 300.00 AN ANXIETY UNSPEC 06/12/2011 300.00 AN ANXIETY UNSPEC 06/12/2011 300.00 AN ANXIETY UNSPEC 06/12/2011 300.00 AN ANXIETY UNSPEC 06/12/2011 300.00 AN ANXIETY UNSPEC 06/12/2011 300.00 AN ANXIETY UNSPEC 06/12/2011 FABIAN GUTIERREZ PHD 300.00 AN ANXIETY UNSPEC 06/12/2011 JAVIER SHEEHAN APRN 300.00 AN ANXIETY UNSPEC 06/12/2011 JAVIER SHEEHAN APRN 300.00 AN ANXIETY UNSPEC 06/12/2011 FABIAN GUTIERREZ PHD 300.00 AN ANXIETY UNSPEC 06/12/2011 WILFREDO RENTERIA APRN 300.00 AN ANXIETY UNSPEC 06/12/2011 TRACE ZIMMERMAN DO K 300.00 AN ANXIETY UNSPEC 06/12/2011 [facility] FAB[facility] A 300.00 AN ANXIETY UNSPEC 06/12/2011 BOEKHOUT PHD, FABIAN A 300.00 AN ANXIETY UNSPEC 06/12/2011 WILFREDO RENTERIA APRN 300.00 AN ANXIETY UNSPEC 06/12/2011 ZOEY BETANCUR APRN, TRISTON Duran 300.00 AN ANXIETY UNSPEC 06/12/2011 BOEORIANAOUT PHD, FABIAN A 300.00 AN ANXIETY UNSPEC 06/12/2011 BOEOUT PHD, FABIAN A 300.00 AN ANXIETY UNSPEC 06/12/2011 JAVIER SHEEHAN APRN 300.00 AN ANXIETY UNSPEC 06/12/2011 JAVIER SHEEHAN APRN 300.00 AN ANXIETY UNSPEC 06/12/2011 TRACE IZMMERMAN DO K 300.00 AN ANXIETY UNSPEC 06/12/2011 YASIR PANDYA, LIAM R 300.00 AN ANXIETY UNSPEC 06/12/2011 YASIR PANDYA LIAM R 300.00 AN ANXIETY UNSPEC 06/12/2011 YASIR PANDYA LIAM R 300.00 AN ANXIETY UNSPEC 06/12/2011 ANGELO SHIELDS APRN 300.00 AN ANXIETY UNSPEC 06/12/2011 TRACE ZIMMERMAN DO K 300.00 AN ANXIETY UNSPEC 10/31/2011 780.52 INSOMNIA UNSPECIFIED 10/31/2011 V74.1 TB SCREENING 10/31/2011 780.52 INSOMNIA UNSPECIFIED 10/31/2011 V74.1 TB SCREENING 10/31/2011 780.52 INSOMNIA UNSPECIFIED 10/31/2011 V74.1 TB SCREENING 10/31/2011 780.52 INSOMNIA UNSPECIFIED 10/31/2011 V74.1 TB SCREENING 10/31/2011 TRACE ZIMMERMAN DO K 780.52 INSOMNIA UNSPECIFIED 10/31/2011 YUNG ZIMMERMAN DOA K V74.1 TB SCREENING 10/31/2011 780.52 INSOMNIA UNSPECIFIED 10/31/2011 V74.1 TB SCREENING 10/31/2011 780.52 INSOMNIA UNSPECIFIED 10/31/2011 V74.1 TB SCREENING 10/31/2011 780.52 INSOMNIA UNSPECIFIED 10/31/2011 V74.1 TB SCREENING 10/31/2011 780.52 INSOMNIA UNSPECIFIED 10/31/2011 V74.1 TB SCREENING 10/31/2011 780.52 INSOMNIA UNSPECIFIED 10/31/2011 V74.1 TB SCREENING 10/31/2011 BOEORIANAOUT PHD, FABIAN A 780.52 INSOMNIA UNSPECIFIED 10/31/2011 BOEKHOUT PHD, FABIAN A V74.1 TB SCREENING 10/31/2011 JAVIER SHEEHAN APRN T 780.52 INSOMNIA UNSPECIFIED 10/31/2011 AGUILA TOUCHER UPJAVIER Duran T V74.1 TB SCREENING 10/31/2011 AGUILA TOUCHER UPJAVIER Duran T 780.52 INSOMNIA UNSPECIFIED 10/31/2011 JAVIER SHEEHAN APRN T V74.1 TB SCREENING 10/31/2011 BOEORIANAOUT PHD, FABIAN A 780.52 INSOMNIA UNSPECIFIED 10/31/2011 BOEKHOUT PHD, FABIAN A V74.1 TB SCREENING 10/31/2011 MYRA YAWILFREDO 780.52 INSOMNIA UNSPECIFIED 10/31/2011 RENTERIA APRN, WILFREDO OROURKE V74.1 TB SCREENING 10/31/2011 ZIMMERMAN DO TRACE K 780.52 INSOMNIA UNSPECIFIED 10/31/2011 ZIMMERMAN DO TRACE K V74.1 TB SCREENING 10/31/2011 BOEORIANAOUT PHD, FABIAN A 780.52 INSOMNIA UNSPECIFIED 10/31/2011 BOEKHOUT PHD, FABIAN A V74.1 TB SCREENING 10/31/2011 BOEORIANAOUT PHD, FABIAN A 780.52 INSOMNIA UNSPECIFIED 10/31/2011 BOEKHOUT PHD, FABIAN A V74.1 TB SCREENING 10/31/2011 MYRA AYWILFREDO 780.52 INSOMNIA UNSPECIFIED 10/31/2011 RENTERIA YAWILFREDO V74.1 TB SCREENING 10/31/2011 TRISTON GUZMAN APRN N 780.52 INSOMNIA UNSPECIFIED 10/31/2011 PK GUZMAN APRNCY N V74.1 TB SCREENING 10/31/2011 BOEORIANAOUT PHD, FABIAN A 780.52 INSOMNIA UNSPECIFIED 10/31/2011 BOEORIANAOUT PHD, FABIAN A V74.1 TB SCREENING 10/31/2011 BOEKHOUT PHD, FABIAN A 780.52 INSOMNIA UNSPECIFIED 10/31/2011 BOEKHOUT PHD, FABIAN A V74.1 TB SCREENING 10/31/2011 JAVIER SHEEHAN APRN T 780.52 INSOMNIA UNSPECIFIED 10/31/2011 JAVIER SHEEHAN APRN T V74.1 TB SCREENING 10/31/2011 JAVIER SHEEHAN APRN 780.52 INSOMNIA UNSPECIFIED 10/31/2011 JAVIER SHEEHAN APRN V74.1 TB SCREENING 10/31/2011 TRACE ZIMMERMAN DO K 780.52 INSOMNIA UNSPECIFIED 10/31/2011 ZIMMERMAN DO, TRACE K V74.1 TB SCREENING 10/31/2011 YASIR TOUCHER UP, LIAM R 780.52 INSOMNIA UNSPECIFIED 10/31/2011 YASIR TOUCHER UP, LIAM R V74.1 TB SCREENING 10/31/2011 YASIR TOUCHER UP, LIAM R 780.52 INSOMNIA UNSPECIFIED 10/31/2011 YASIR TOUCHER UP, LIAM R V74.1 TB SCREENING 10/31/2011 YASIR TOUCHER UP, LIAM R 780.52 INSOMNIA UNSPECIFIED 10/31/2011 YASIR TOUCHER UP, LIAM R V74.1 TB SCREENING 10/31/2011 ALYSON TOUCHER UP, ANGELO J 780.52 INSOMNIA UNSPECIFIED 10/31/2011 ALYSON TOUCHER UP, ANGELO J V74.1 TB SCREENING 10/31/2011 YUNG ZIMMERMAN DOA K 780.52 INSOMNIA UNSPECIFIED 10/31/2011 ZIMMERMAN , TRACE K V74.1 TB SCREENING 04/16/2012 477.0 ALLERGIC RHINITIS - POLLEN 04/16/2012 729.5 pain in the hands 04/16/2012 V05.3 Need For Vaccination Hepatitis A 04/16/2012 V05.4 Need For Vaccination Chickenpox (Active) 04/16/2012 V06.4 Need For Vaccination MMR 04/16/2012 V76.10 visit for: screening exam malignant neoplasm breast 04/16/2012 477.0 ALLERGIC RHINITIS - POLLEN 04/16/2012 729.5 pain in the hands 04/16/2012 V05.3 Need For Vaccination Hepatitis A 04/16/2012 V05.4 Need For Vaccination Chickenpox (Active) 04/16/2012 V06.4 Need For Vaccination MMR 04/16/2012 V76.10 visit for: screening exam malignant neoplasm breast 04/16/2012 477.0 ALLERGIC RHINITIS - POLLEN 04/16/2012 729.5 pain in the hands 04/16/2012 V05.3 Need For Vaccination Hepatitis A 04/16/2012 V05.4 Need For Vaccination Chickenpox (Active) 04/16/2012 V06.4 Need For Vaccination MMR 04/16/2012 V76.10 visit for: screening exam malignant neoplasm breast 04/16/2012 477.0 ALLERGIC RHINITIS - POLLEN 04/16/2012 729.5 pain in the hands 04/16/2012 V05.3 Need For Vaccination Hepatitis A 04/16/2012 V05.4 Need For Vaccination Chickenpox (Active) 04/16/2012 V06.4 Need For Vaccination MMR 04/16/2012 V76.10 visit for: screening exam malignant neoplasm breast 04/16/2012 ZIMMERMAN DO, TRACE K 477.0 ALLERGIC RHINITIS - POLLEN 04/16/2012 ZIMMERMAN DO, TRACE K 729.5 pain in the hands 04/16/2012 ZIMMERMAN DO TRACE K V05.3 Need For Vaccination Hepatitis A 04/16/2012 ZIMMERMAN DO TRACE K V05.4 Need For Vaccination Chickenpox (Active) 04/16/2012 ERASMO FAGAN TRACE K V06.4 Need For Vaccination MMR 04/16/2012 ERASMO FAGAN TRACE K V76.10 visit for: screening exam malignant neoplasm breast 04/16/2012 477.0 ALLERGIC RHINITIS - POLLEN 04/16/2012 729.5 pain in the hands 04/16/2012 V05.3 Need For Vaccination Hepatitis A 04/16/2012 V05.4 Need For Vaccination Chickenpox (Active) 04/16/2012 V06.4 Need For Vaccination MMR 04/16/2012 V76.10 visit for: screening exam malignant neoplasm breast 04/16/2012 477.0 ALLERGIC RHINITIS - POLLEN 04/16/2012 729.5 pain in the hands 04/16/2012 V05.3 Need For Vaccination Hepatitis A 04/16/2012 V05.4 Need For Vaccination Chickenpox (Active) 04/16/2012 V06.4 Need For Vaccination MMR 04/16/2012 V76.10 visit for: screening exam malignant neoplasm breast 04/16/2012 477.0 ALLERGIC RHINITIS - POLLEN 04/16/2012 729.5 pain in the hands 04/16/2012 V05.3 Need For Vaccination Hepatitis A 04/16/2012 V05.4 Need For Vaccination Chickenpox (Active) 04/16/2012 V06.4 Need For Vaccination MMR 04/16/2012 V76.10 visit for: screening exam malignant neoplasm breast 04/16/2012 477.0 ALLERGIC RHINITIS - POLLEN 04/16/2012 729.5 pain in the hands 04/16/2012 V05.3 Need For Vaccination Hepatitis A 04/16/2012 V05.4 Need For Vaccination Chickenpox (Active) 04/16/2012 V06.4 Need For Vaccination MMR 04/16/2012 V76.10 visit for: screening exam malignant neoplasm breast 04/16/2012 477.0 ALLERGIC RHINITIS - POLLEN 04/16/2012 729.5 pain in the hands 04/16/2012 V05.3 Need For Vaccination Hepatitis A 04/16/2012 V05.4 Need For Vaccination Chickenpox (Active) 04/16/2012 V06.4 Need For Vaccination MMR 04/16/2012 V76.10 visit for: screening exam malignant neoplasm breast 04/16/2012 FABIAN GUTIERREZ PHD 477.0 ALLERGIC RHINITIS - POLLEN 04/16/2012 FABIAN GUTIERREZ PHD 729.5 pain in the hands 04/16/2012 FABIAN GUTIERREZ PHD V05.3 Need For Vaccination Hepatitis A 04/16/2012 FABIAN GUTIERREZ PHD V05.4 Need For Vaccination Chickenpox (Active) 04/16/2012 FABIAN GUTIERREZ PHD V06.4 Need For Vaccination MMR 04/16/2012 FABIAN GUTIERREZ PHD V76.10 visit for: screening exam malignant neoplasm breast 04/16/2012 JAVIER SHEEHAN APRN 477.0 ALLERGIC RHINITIS - POLLEN 04/16/2012 JAVIER SHEEHAN APRN 729.5 pain in the hands 04/16/2012 JAVIER SHEEHAN APRN V05.3 Need For Vaccination Hepatitis A 04/16/2012 JAVIER SHEEHAN APRN V05.4 Need For Vaccination Chickenpox (Active) 04/16/2012 JAVIER SHEEHAN APRN V06.4 Need For Vaccination MMR 04/16/2012 JAVIER SHEEHAN APRN V76.10 visit for: screening exam malignant neoplasm breast 04/16/2012 JAVIER SHEEHAN APRN 477.0 ALLERGIC RHINITIS - POLLEN 04/16/2012 JAVIER SHEEHAN APRN 729.5 pain in the hands 04/16/2012 JAVIER SHEEHAN APRN V05.3 Need For Vaccination Hepatitis A 04/16/2012 JAVIER SHEEHAN APRN V05.4 Need For Vaccination Chickenpox (Active) 04/16/2012 JAVIER SHEEHAN APRN V06.4 Need For Vaccination MMR 04/16/2012 JAVIER SHEEHAN APRN V76.10 visit for: screening exam malignant neoplasm breast 04/16/2012 FABIAN GUTIERREZ PHD 477.0 ALLERGIC RHINITIS - POLLEN 04/16/2012 FABIAN GUTIERREZ PHD 729.5 pain in the hands 04/16/2012 FABIAN GUTIERREZ PHD V05.3 Need For Vaccination Hepatitis A 04/16/2012 FABIAN GUTIERREZ PHD V05.4 Need For Vaccination Chickenpox (Active) 04/16/2012 FABIAN GUTIERREZ PHD V06.4 Need For Vaccination MMR 04/16/2012 FABIAN GUTIERREZ PHD V76.10 visit for: screening exam malignant neoplasm breast 04/16/2012 WILFREDO RENTERIA APRN 477.0 ALLERGIC RHINITIS - POLLEN 04/16/2012 WILFREDO RENTERIA APRN 729.5 pain in the hands 04/16/2012 WILFREDO RENTERIA APRN V05.3 Need For Vaccination Hepatitis A 04/16/2012 WILFREDO RENTERIA APRN V05.4 Need For Vaccination Chickenpox (Active) 04/16/2012 WILFREDO RENTERIA APRN V06.4 Need For Vaccination MMR 04/16/2012 WILFREDO RENTERIA APRN V76.10 visit for: screening exam malignant neoplasm breast 04/16/2012 TRACE ZIMMERMAN DO 477.0 ALLERGIC RHINITIS - POLLEN 04/16/2012 TRACE ZIMMERMAN DO 729.5 pain in the hands 04/16/2012 YUNG ZIMMERMAN DOA K V05.3 Need For Vaccination Hepatitis A 04/16/2012 ZIMMERMAN DO TRACE K V05.4 Need For Vaccination Chickenpox (Active) 04/16/2012 ZIMMERMAN DO TRACE K V06.4 Need For Vaccination MMR 04/16/2012 ZIMMERMAN DO TRACE K V76.10 visit for: screening exam malignant neoplasm breast 04/16/2012 FABIAN GUTIERREZ PHD 477.0 ALLERGIC RHINITIS - POLLEN 04/16/2012 FABIAN GUTIERREZ PHD 729.5 pain in the hands 04/16/2012 FABIAN GUTIERREZ PHD V05.3 Need For Vaccination Hepatitis A 04/16/2012 [facility] FABIAN YA V05.4 Need For Vaccination Chickenpox (Active) 04/16/2012 [facility] FABIAN YA V06.4 Need For Vaccination MMR 04/16/2012 [facility] FABIAN YA V76.10 visit for: screening exam malignant neoplasm breast 04/16/2012 FABIAN GUTIERREZ PHD 477.0 ALLERGIC RHINITIS - POLLEN 04/16/2012 [facility] FABIAN YA 729.5 pain in the hands 04/16/2012 [facility] FABIAN YA V05.3 Need For Vaccination Hepatitis A 04/16/2012 [facility] FABIAN YA V05.4 Need For Vaccination Chickenpox (Active) 04/16/2012 [facility] FABIAN YA V06.4 Need For Vaccination MMR 04/16/2012 [facility] FABIAN YA V76.10 visit for: screening exam malignant neoplasm breast 04/16/2012 WILFREDO RENTERIA APRN 477.0 ALLERGIC RHINITIS - POLLEN 04/16/2012 WILFREDO RENTERIA APRN 729.5 pain in the hands 04/16/2012 WILFREDO RENTERIA APRN V05.3 Need For Vaccination Hepatitis A 04/16/2012 WILFREDO RENTERIA APRN V05.4 Need For Vaccination Chickenpox (Active) 04/16/2012 WILFREDO RENTERIA APRN V06.4 Need For Vaccination MMR 04/16/2012 WILFREDO RENTERIA APRN V76.10 visit for: screening exam malignant neoplasm breast 04/16/2012 TRISTON GUZMAN APRN 477.0 ALLERGIC RHINITIS - POLLEN 04/16/2012 TRISTON GUZMAN APRN N 729.5 pain in the hands 04/16/2012 TRISTON GUZMAN APRN N V05.3 Need For Vaccination Hepatitis A 04/16/2012 TRISTON GUZMAN APRN N V05.4 Need For Vaccination Chickenpox (Active) 04/16/2012 TRISTON GUZMAN APRN N V06.4 Need For Vaccination MMR 04/16/2012 TRISTON GUZMAN APRN N V76.10 visit for: screening exam malignant neoplasm breast 04/16/2012 FABIAN GUTIERREZ PHD 477.0 ALLERGIC RHINITIS - POLLEN 04/16/2012 FABIAN GUTIERREZ PHD 729.5 pain in the hands 04/16/2012 FABIAN GUTIERREZ PHD V05.3 Need For Vaccination Hepatitis A 04/16/2012 FBAIAN GUTIERREZ PHD V05.4 Need For Vaccination Chickenpox (Active) 04/16/2012 FABIAN GUTIERREZ PHD V06.4 Need For Vaccination MMR 04/16/2012 [facility] FABIAN YA V76.10 visit for: screening exam malignant neoplasm breast 04/16/2012 FABIAN GUTIERREZ PHD 477.0 ALLERGIC RHINITIS - POLLEN 04/16/2012 FABIAN GUTIERREZ PHD 729.5 pain in the hands 04/16/2012 FABIAN GUTIERREZ PHD V05.3 Need For Vaccination Hepatitis A 04/16/2012 FABIAN GUTIERREZ PHD V05.4 Need For Vaccination Chickenpox (Active) 04/16/2012 FABIAN GUTIERREZ PHD V06.4 Need For Vaccination MMR 04/16/2012 FABIAN GUTIERREZ PHD V76.10 visit for: screening exam malignant neoplasm breast 04/16/2012 JAVIER SHEEHAN APRN 477.0 ALLERGIC RHINITIS - POLLEN 04/16/2012 JAVIER SHEEHAN APRN 729.5 PAIN IN THE HANDS 04/16/2012 JAVIER SHEEHAN APRN V05.3 Need For Vaccination Hepatitis A 04/16/2012 JAVIER SHEEHAN APRN V05.4 Need For Vaccination Chickenpox (Active) 04/16/2012 JAVIER SHEEHAN APRN V06.4 Need For Vaccination MMR 04/16/2012 JAVIER SHEEHAN APRN V76.10 visit for: screening exam malignant neoplasm breast 04/16/2012 JAVIER SHEEHAN APRN 477.0 ALLERGIC RHINITIS - POLLEN 04/16/2012 JAVIER SHEEHAN APRN 729.5 PAIN IN THE HANDS 04/16/2012 JAVIER SHEEHAN APRN V05.3 Need For Vaccination Hepatitis A 04/16/2012 JAVIER SHEEHAN APRN V05.4 Need For Vaccination Chickenpox (Active) 04/16/2012 JAVIER SHEEHAN APRN V06.4 Need For Vaccination MMR 04/16/2012 JAVIER SHEEHAN APRN V76.10 visit for: screening exam malignant neoplasm breast 04/16/2012 ZIMMERMAN DOTRACE K 477.0 ALLERGIC RHINITIS - POLLEN 04/16/2012 ZIMMERMAN DOTRACE K 729.5 PAIN IN THE HANDS 04/16/2012 ZIMMERMAN DO, TRACE K V05.3 Need For Vaccination Hepatitis A 04/16/2012 ZIMMERMAN DO, TRACE K V05.4 Need For Vaccination Chickenpox (Active) 04/16/2012 ZIMMERMAN DO, TRACE K V06.4 Need For Vaccination MMR 04/16/2012 ZIMMERMAN YUNGA K V76.10 visit for: screening exam malignant neoplasm breast 04/16/2012 ILAN COOLEY APRNINA R 477.0 ALLERGIC RHINITIS - POLLEN 04/16/2012 YASIR PANDYA LIAM R 729.5 PAIN IN THE HANDS 04/16/2012 YASIR PANDYA LIAM R V05.3 Need For Vaccination Hepatitis A 04/16/2012 YASIR PANDYA LIAM R V05.4 Need For Vaccination Chickenpox (Active) 04/16/2012 YASIR PANDYA LIAM R V06.4 Need For Vaccination MMR 04/16/2012 YASIR PANDYA LIAM R V76.10 visit for: screening exam malignant neoplasm breast 04/16/2012 ILAN COOLEY APRNINA R 477.0 ALLERGIC RHINITIS - POLLEN 04/16/2012 YASIR PANDYA LIAM R 729.5 PAIN IN THE HANDS 04/16/2012 YASIR PANDYA LIAM R V05.3 Need For Vaccination Hepatitis A 04/16/2012 YASIR PANDYA LIAM R V05.4 Need For Vaccination Chickenpox (Active) 04/16/2012 YASIR PANDYA LIAM R V06.4 Need For Vaccination MMR 04/16/2012 YASIR PANDYA LIAM R V76.10 visit for: screening exam malignant neoplasm breast 04/16/2012 YASIR PANDYA LIAM R 477.0 ALLERGIC RHINITIS - POLLEN 04/16/2012 YASIR PANDYA LIAM R 729.5 PAIN IN THE HANDS 04/16/2012 YASIR PANDYA LIAM R V05.3 Need For Vaccination Hepatitis A 04/16/2012 YASIR PANDYA LIAM R V05.4 Need For Vaccination Chickenpox (Active) 04/16/2012 LIAM COOLEY APRN V06.4 Need For Vaccination MMR 04/16/2012 LIAM COOLEY APRN V76.10 visit for: screening exam malignant neoplasm breast 04/16/2012 ANGELO SHIELDS APRN 477.0 ALLERGIC RHINITIS - POLLEN 04/16/2012 ANGELO SHIELDS APRN 729.5 PAIN IN THE HANDS 04/16/2012 ANGELO SHIELDS APRN V05.3 Need For Vaccination Hepatitis A 04/16/2012 ANGELO SHIELDS APRN J V05.4 Need For Vaccination Chickenpox (Active) 04/16/2012 ANGELO SHIELDS APRN J V06.4 Need For Vaccination MMR 04/16/2012 ANGELO SHIELDS APRN V76.10 visit for: screening exam malignant neoplasm breast 04/16/2012 TRACE ZIMMERMAN DO 477.0 ALLERGIC RHINITIS - POLLEN 04/16/2012 TRACE ZIMMERMAN DO 729.5 pain in the hands 04/16/2012 TRACE ZIMMERMAN DO V05.3 Need For Vaccination Hepatitis A 04/16/2012 TRACE ZIMMERMAN DO V05.4 Need For Vaccination Chickenpox (Active) 04/16/2012 TRACE ZIMMERMAN DO V06.4 Need For Vaccination MMR 04/16/2012 TRACE ZIMMERMAN DO V76.10 visit for: screening exam malignant neoplasm breast 05/19/2012 V04.0 POLIO (IPV) DX 05/19/2012 V06.1 TDAP DX 05/19/2012 V04.0 POLIO (IPV) DX 05/19/2012 V06.1 TDAP DX 05/19/2012 V04.0 POLIO (IPV) DX 05/19/2012 V06.1 TDAP DX 05/19/2012 V04.0 POLIO (IPV) DX 05/19/2012 V06.1 TDAP DX 05/19/2012 TRACE ZIMMERMAN DO V04.0 POLIO (IPV) DX 05/19/2012 TRACE ZIMMERMAN DO V06.1 TDAP DX 05/19/2012 V04.0 POLIO (IPV) DX 05/19/2012 V06.1 TDAP DX 05/19/2012 V04.0 POLIO (IPV) DX 05/19/2012 V06.1 TDAP DX 05/19/2012 V04.0 POLIO (IPV) DX 05/19/2012 V06.1 TDAP DX 05/19/2012 V04.0 POLIO (IPV) DX 05/19/2012 V06.1 TDAP DX 05/19/2012 V04.0 POLIO (IPV) DX 05/19/2012 V06.1 TDAP DX 05/19/2012 MATT YA, FABIAN A V04.0 POLIO (IPV) DX 05/19/2012 MATT PHD, FABIAN A V06.1 TDAP DX 05/19/2012 AGUILA PANDYA, JAVIER T V04.0 POLIO (IPV) DX 05/19/2012 AGUILA PANDYA, JAVIER T V06.1 TDAP DX 05/19/2012 AGUILA PANDYA, JAVIER T V04.0 POLIO (IPV) DX 05/19/2012 AGUILA PANDYA, JAVIER T V06.1 TDAP DX 05/19/2012 MATT YA, FABIAN A V04.0 POLIO (IPV) DX 05/19/2012 MATT YA, FABIAN A V06.1 TDAP DX 05/19/2012 MYRA PANDYA, WILFREDO OROURKE V04.0 POLIO (IPV) DX 05/19/2012 MYRA PANDYA, WILFREDO OROURKE V06.1 TDAP DX 05/19/2012 ZIMMERMAN DO, TRACE K V04.0 POLIO (IPV) DX 05/19/2012 ZIMMERMAN DO, TRACE K V06.1 TDAP DX 05/19/2012 MATT YA, FABIAN A V04.0 POLIO (IPV) DX 05/19/2012 MATT YA, FABIAN A V06.1 TDAP DX 05/19/2012 MATT YA, FABIAN A V04.0 POLIO (IPV) DX 05/19/2012 MATT YA, FABIAN A V06.1 TDAP DX 05/19/2012 MYRA PANDYA, WILFREDO HAVEN V04.0 POLIO (IPV) DX 05/19/2012 MYRA PANDYA, WILFREDO OROURKE V06.1 TDAP DX 05/19/2012 TRISTON GUZMAN APRN V04.0 POLIO (IPV) DX 05/19/2012 ZOEY BETANCUR APRN TRISTON Duran V06.1 TDAP DX 05/19/2012 MATT PHD, FABIAN Purcell V04.0 POLIO (IPV) DX 05/19/2012 MATT PHD, FABIAN A V06.1 TDAP DX 05/19/2012 MATT PHD, FABIAN A V04.0 POLIO (IPV) DX 05/19/2012 MATT PHD, FABIAN Purcell V06.1 TDAP DX 05/19/2012 AGUILA EPPERSONN, JAVIER T V04.0 POLIO (IPV) DX 05/19/2012 AGUILA EPPERSONN, JAVIER T V06.1 TDAP DX 05/19/2012 AGUILA EPPERSONN, JAVIER T V04.0 POLIO (IPV) DX 05/19/2012 AGUILA EPPERSONN, JAVIER T V06.1 TDAP DX 05/19/2012 TRACE ZIMMERMAN DO K V04.0 POLIO (IPV) DX 05/19/2012 TRACE ZIMMERMAN DO K V06.1 TDAP DX 05/19/2012 YASIR EPPERSONN, LIAM R V04.0 POLIO (IPV) DX 05/19/2012 YASIR EPPERSONN, LIAM R V06.1 TDAP DX 05/19/2012 YASIR EPPERSONN, LIAM R V04.0 POLIO (IPV) DX 05/19/2012 YASIR EPPERSONN, LIAM R V06.1 TDAP DX 05/19/2012 YASIR EPPERSONN, LIAM R V04.0 POLIO (IPV) DX 05/19/2012 YASIR EPPERSONN, LIAM R V06.1 TDAP DX 05/19/2012 ALYSON PANDYA, ANGELO J V04.0 POLIO (IPV) DX 05/19/2012 ALYSON PANDYA, ANGELO J V06.1 TDAP DX 05/19/2012 TRACE ZIMMERMAN DO K V04.0 POLIO (IPV) DX 05/19/2012 TRACE ZIMMERMAN DO K V06.1 TDAP DX 11/12/2012 Ot 218.1 INTRAMURAL LEIOMYOMA 11/12/2012 Ot 614.6 FEM PELVIC PERITON ADH-POST-OP/INF 11/12/2012 Ot 616.0 CERVICITIS 12/04/2012 Ot 575.11 CHRONIC CHOLECYSTITIS 12/23/2012 V15.09 PERSONAL HISTORY OF OTHER ALLERGY OTHER THAN TO MEDICINAL AGENTS 12/23/2012 V15.09 PERSONAL HISTORY OF OTHER ALLERGY OTHER THAN TO MEDICINAL AGENTS 12/23/2012 TRACE ZIMMERMAN DO V15.09 PERSONAL HISTORY OF OTHER ALLERGY OTHER THAN TO MEDICINAL AGENTS 12/23/2012 V15.09 PERSONAL HISTORY OF OTHER ALLERGY OTHER THAN TO MEDICINAL AGENTS 12/23/2012 V15.09 PERSONAL HISTORY OF OTHER ALLERGY OTHER THAN TO MEDICINAL AGENTS 12/23/2012 V15.09 PERSONAL HISTORY OF OTHER ALLERGY OTHER THAN TO MEDICINAL AGENTS 12/23/2012 V15.09 PERSONAL HISTORY OF OTHER ALLERGY OTHER THAN TO MEDICINAL AGENTS 12/23/2012 V15.09 PERSONAL HISTORY OF OTHER ALLERGY OTHER THAN TO MEDICINAL AGENTS 12/23/2012 FABIAN GUTIERREZ PHD V15.09 PERSONAL HISTORY OF OTHER ALLERGY OTHER THAN TO MEDICINAL AGENTS 12/23/2012 JAVIER SHEEHAN APRN V15.09 PERSONAL HISTORY OF OTHER ALLERGY OTHER THAN TO MEDICINAL AGENTS 12/23/2012 JAVIER SHEEHAN APRN V15.09 PERSONAL HISTORY OF OTHER ALLERGY OTHER THAN TO MEDICINAL AGENTS 12/23/2012 FABIAN GUTIERREZ PHD V15.09 PERSONAL HISTORY OF OTHER ALLERGY OTHER THAN TO MEDICINAL AGENTS 12/23/2012 WILFREDO RENTERIA APRN V15.09 PERSONAL HISTORY OF OTHER ALLERGY OTHER THAN TO MEDICINAL AGENTS 12/23/2012 TRACE ZIMMERMAN DO V15.09 PERSONAL HISTORY OF OTHER ALLERGY OTHER THAN TO MEDICINAL AGENTS 12/23/2012 FABIAN GUTIERREZ PHD V15.09 PERSONAL HISTORY OF OTHER ALLERGY OTHER THAN TO MEDICINAL AGENTS 12/23/2012 FABIAN GUTIERREZ PHD V15.09 PERSONAL HISTORY OF OTHER ALLERGY OTHER THAN TO MEDICINAL AGENTS 12/23/2012 WILFREDO RENTERIA APRN V15.09 PERSONAL HISTORY OF OTHER ALLERGY OTHER THAN TO MEDICINAL AGENTS 12/23/2012 TRISTON GUZMAN APRN V15.09 PERSONAL HISTORY OF OTHER ALLERGY OTHER THAN TO MEDICINAL AGENTS 12/23/2012 FABIAN GUTIERREZ PHD V15.09 PERSONAL HISTORY OF OTHER ALLERGY OTHER THAN TO MEDICINAL AGENTS 12/23/2012 FABIAN GUTIERREZ PHD V15.09 PERSONAL HISTORY OF OTHER ALLERGY OTHER THAN TO MEDICINAL AGENTS 12/23/2012 JAVIER SHEEHAN APRN V15.09 PERSONAL HISTORY OF OTHER ALLERGY OTHER THAN TO MEDICINAL AGENTS 12/23/2012 JAVIER SHEEHAN APRN V15.09 PERSONAL HISTORY OF OTHER ALLERGY OTHER THAN TO MEDICINAL AGENTS 12/23/2012 TRACE ZIMMERMAN DO V15.09 PERSONAL HISTORY OF OTHER ALLERGY OTHER THAN TO MEDICINAL AGENTS 12/23/2012 YASIR TOUCHER UP, LAIM R V15.09 PERSONAL HISTORY OF OTHER ALLERGY OTHER THAN TO MEDICINAL AGENTS 12/23/2012 YASIR TOUCHER UP, LIAM R V15.09 PERSONAL HISTORY OF OTHER ALLERGY OTHER THAN TO MEDICINAL AGENTS 12/23/2012 YASIR TOUCHER UP, LIAM R V15.09 PERSONAL HISTORY OF OTHER ALLERGY OTHER THAN TO MEDICINAL AGENTS 12/23/2012 ALYSON TOUCHER UP, ANGELO Cast V15.09 PERSONAL HISTORY OF OTHER ALLERGY OTHER THAN TO MEDICINAL AGENTS 01/05/2013 780.50 SLEEP DISTURBANCE, UNSPECIFIED 01/05/2013 TRACE ZIMMERMAN DO 780.50 SLEEP DISTURBANCE, UNSPECIFIED 01/05/2013 780.50 SLEEP DISTURBANCE, UNSPECIFIED 01/05/2013 780.50 SLEEP DISTURBANCE, UNSPECIFIED 01/05/2013 780.50 SLEEP DISTURBANCE, UNSPECIFIED 01/05/2013 780.50 SLEEP DISTURBANCE, UNSPECIFIED 01/05/2013 780.50 SLEEP DISTURBANCE, UNSPECIFIED 01/05/2013 FABIAN GUTIERREZ PHD 780.50 SLEEP DISTURBANCE, UNSPECIFIED 01/05/2013 JAVIER SHEEHAN APRN 780.50 SLEEP DISTURBANCE, UNSPECIFIED 01/05/2013 JAVIER SHEEHAN APRN 780.50 SLEEP DISTURBANCE, UNSPECIFIED 01/05/2013 FABIAN GUTIERREZ PHD 780.50 SLEEP DISTURBANCE, UNSPECIFIED 01/05/2013 WILFREDO RENTERIA APRN 780.50 SLEEP DISTURBANCE, UNSPECIFIED 01/05/2013 TRACE ZIMMERMAN DO 780.50 SLEEP DISTURBANCE, UNSPECIFIED 01/05/2013 MATT YA, FABIAN Purcell 780.50 SLEEP DISTURBANCE, UNSPECIFIED 01/05/2013 MATT YA, FABIAN Purcell 780.50 SLEEP DISTURBANCE, UNSPECIFIED 01/05/2013 WILFREDO RENTERIA APRN 780.50 SLEEP DISTURBANCE, UNSPECIFIED 01/05/2013 TRISTON GUZMAN APRN 780.50 SLEEP DISTURBANCE, UNSPECIFIED 01/05/2013 MATT YA, FABIAN Purcell 780.50 SLEEP DISTURBANCE, UNSPECIFIED 01/05/2013 MATT YA, FABIAN Purcell 780.50 SLEEP DISTURBANCE, UNSPECIFIED 01/05/2013 AGUILA TOUCHER UP, JAVIER T 780.50 SLEEP DISTURBANCE, UNSPECIFIED 01/05/2013 AGUILA TOUCHER UP, JAVIER T 780.50 SLEEP DISTURBANCE, UNSPECIFIED 01/05/2013 ZIMMERMAN DO, TRACE K 780.50 SLEEP DISTURBANCE, UNSPECIFIED 01/05/2013 YASIR TOUCHER UP, LIAM R 780.50 SLEEP DISTURBANCE, UNSPECIFIED 01/05/2013 YASIR TOUCHER UP, LIAM R 780.50 SLEEP DISTURBANCE, UNSPECIFIED 01/05/2013 YASIR TOUCHER UP, LIAM R 780.50 SLEEP DISTURBANCE, UNSPECIFIED 01/05/2013 ALYSON TOUCHER UP, ANGELO Cast 780.50 SLEEP DISTURBANCE, UNSPECIFIED 02/16/2013 ZIMMERMAN DO, TRACE K 724.3 SCIATICA 02/16/2013 724.3 SCIATICA 02/16/2013 724.3 SCIATICA 02/16/2013 724.3 SCIATICA 02/16/2013 724.3 SCIATICA 02/16/2013 724.3 SCIATICA 02/16/2013 MATT YA, FABIAN A 724.3 SCIATICA 02/16/2013 JAVIER SHEEHAN APRN 724.3 SCIATICA 02/16/2013 JAVIER SHEEHAN APRN T 724.3 SCIATICA 02/16/2013 MATT PHD, FABIAN A 724.3 SCIATICA 02/16/2013 WILFREDO RENTERIA APRN 724.3 SCIATICA 02/16/2013 ERASMO FAGAN TRACE K 724.3 SCIATICA 02/16/2013 MATT PHD, FABIAN A 724.3 SCIATICA 02/16/2013 MATT YA, FABIAN A 724.3 SCIATICA 02/16/2013 WILFREDO RENTERIA APRN 724.3 SCIATICA 02/16/2013 ZOEY BETANCUR APRN, TRISTON Duran 724.3 SCIATICA 02/16/2013 MATT PHD, FABIAN A 724.3 SCIATICA 02/16/2013 MATT YA, FABIAN A 724.3 SCIATICA 02/16/2013 JAVIER SHEEHAN APRN 724.3 SCIATICA 02/16/2013 JAVIER SHEEHAN APRN 724.3 SCIATICA 02/16/2013 ERASMO FAGAN TRACE K 724.3 SCIATICA 02/16/2013 YASIR EPPERSONN, LIAM R 724.3 SCIATICA 02/16/2013 YASIR PANDYA LIAM R 724.3 SCIATICA 02/16/2013 ILAN COOLEY APRNINA R 724.3 SCIATICA 02/16/2013 ANGELO SHIELDS APRN 724.3 SCIATICA 04/21/2013 788.41 URINARY FREQUENCY 04/21/2013 788.41 URINARY FREQUENCY 04/21/2013 788.41 URINARY FREQUENCY 04/21/2013 788.41 URINARY FREQUENCY 04/21/2013 788.41 URINARY FREQUENCY 04/21/2013 FABIAN GUTIERREZ PHD A 788.41 URINARY FREQUENCY 04/21/2013 JAVIER SHEEHAN APRN 788.41 URINARY FREQUENCY 04/21/2013 JAVIER SHEEHAN APRN 788.41 URINARY FREQUENCY 04/21/2013 MATT YA, FABIAN A 788.41 URINARY FREQUENCY 04/21/2013 MYRA PANDYA WILFREDO OROURKE 788.41 URINARY FREQUENCY 04/21/2013 TRACE ZIMMERMAN DO K 788.41 URINARY FREQUENCY 04/21/2013 MATT YA, FABIAN A 788.41 URINARY FREQUENCY 04/21/2013 [facility] , FABIAN A 788.41 URINARY FREQUENCY 04/21/2013 MYRA PANDYA WILFREDO DWYERH 788.41 URINARY FREQUENCY 04/21/2013 TRISTON GUZMAN APRN 788.41 URINARY FREQUENCY 04/21/2013 [facility] , FABIAN A 788.41 URINARY FREQUENCY 04/21/2013 [facility] , FABIAN A 788.41 URINARY FREQUENCY 04/21/2013 JAVIER SHEEHAN APRN 788.41 URINARY FREQUENCY 04/21/2013 JAVIER SHEEHAN APRN 788.41 URINARY FREQUENCY 04/21/2013 ZIMMERMAN DOYUNGA K 788.41 URINARY FREQUENCY 04/21/2013 LIAM COOLEY APRN R 788.41 URINARY FREQUENCY 04/21/2013 ILAN COOLEY APRNINA R 788.41 URINARY FREQUENCY 04/21/2013 ILAN COOLEY APRNINA R 788.41 URINARY FREQUENCY 04/21/2013 ANGELO SHIELDS APRN 788.41 URINARY FREQUENCY 06/11/2013 719.43 PAIN IN JOINT INVOLVING FOREARM 06/11/2013 789.01 ABDOMINAL PAIN RIGHT UPPER QUADRANT 06/11/2013 719.43 PAIN IN JOINT INVOLVING FOREARM 06/11/2013 789.01 ABDOMINAL PAIN RIGHT UPPER QUADRANT 06/11/2013 719.43 PAIN IN JOINT INVOLVING FOREARM 06/11/2013 789.01 ABDOMINAL PAIN RIGHT UPPER QUADRANT 06/11/2013 FABIAN GUTIERREZ PHD 719.43 PAIN IN JOINT INVOLVING FOREARM 06/11/2013 FABIAN GUTIERREZ PHD 789.01 ABDOMINAL PAIN RIGHT UPPER QUADRANT 06/11/2013 JAVIER SHEEHAN APRN 719.43 PAIN IN JOINT INVOLVING FOREARM 06/11/2013 JAVIER SHEEHAN APRN 789.01 ABDOMINAL PAIN RIGHT UPPER QUADRANT 06/11/2013 JAVIER SHEEHAN APRN 719.43 PAIN IN JOINT INVOLVING FOREARM 06/11/2013 JAVIER SHEEHAN APRN 789.01 ABDOMINAL PAIN RIGHT UPPER QUADRANT 06/11/2013 FABIAN GUTIERREZ PHD 719.43 PAIN IN JOINT INVOLVING FOREARM 06/11/2013 FABINA GUTIERREZ PHD 789.01 ABDOMINAL PAIN RIGHT UPPER QUADRANT 06/11/2013 WILFREDO RENTERIA APRN 719.43 PAIN IN JOINT INVOLVING FOREARM 06/11/2013 WILFREDO RENTERIA APRN 789.01 ABDOMINAL PAIN RIGHT UPPER QUADRANT 06/11/2013 ERASMO DOTARCE K 719.43 PAIN IN JOINT INVOLVING FOREARM 06/11/2013 ZIMMERMAN DO, TRACE K 789.01 ABDOMINAL PAIN RIGHT UPPER QUADRANT 06/11/2013 FABIAN GUTIERREZ PHD 719.43 PAIN IN JOINT INVOLVING FOREARM 06/11/2013 FABIAN GUTIERREZ PHD 789.01 ABDOMINAL PAIN RIGHT UPPER QUADRANT 06/11/2013 FABIAN GUTIERREZ PHD 719.43 PAIN IN JOINT INVOLVING FOREARM 06/11/2013 FABIAN GUTIERREZ PHD 789.01 ABDOMINAL PAIN RIGHT UPPER QUADRANT 06/11/2013 WILFREDO RENTERIA APRN 719.43 PAIN IN JOINT INVOLVING FOREARM 06/11/2013 WILFREDO RENTERIA APRN 789.01 ABDOMINAL PAIN RIGHT UPPER QUADRANT 06/11/2013 TRISTON GUZMAN APRN 719.43 PAIN IN JOINT INVOLVING FOREARM 06/11/2013 TRISTON GUZMAN APRN N 789.01 ABDOMINAL PAIN RIGHT UPPER QUADRANT 06/11/2013 FABIAN GUTIERREZ PHD 719.43 PAIN IN JOINT INVOLVING FOREARM 06/11/2013 FABIAN GUTIERREZ PHD 789.01 ABDOMINAL PAIN RIGHT UPPER QUADRANT 06/11/2013 FABIAN GUTIERREZ PHD 719.43 PAIN IN JOINT INVOLVING FOREARM 06/11/2013 FABIAN GUTIERREZ PHD 789.01 ABDOMINAL PAIN RIGHT UPPER QUADRANT 06/11/2013 JAVIER SHEEHAN APRN 719.43 PAIN IN JOINT INVOLVING FOREARM 06/11/2013 JAVIER SHEEHAN APRN 789.01 ABDOMINAL PAIN RIGHT UPPER QUADRANT 06/11/2013 JAVIER SHEEHAN APRN 719.43 PAIN IN JOINT INVOLVING FOREARM 06/11/2013 JAVIER SHEEHAN APRN 789.01 ABDOMINAL PAIN RIGHT UPPER QUADRANT 06/11/2013 ZIMMERMAN DO TRACE K 719.43 PAIN IN JOINT INVOLVING FOREARM 06/11/2013 ZIMMERMAN DO, TRACE K 789.01 ABDOMINAL PAIN RIGHT UPPER QUADRANT 06/11/2013 ILAN COOLEY APRNINA R 719.43 PAIN IN JOINT INVOLVING FOREARM 06/11/2013 LIAM COOLEY APRN R 789.01 ABDOMINAL PAIN RIGHT UPPER QUADRANT 06/11/2013 LIAM COOLEY APRN R 719.43 PAIN IN JOINT INVOLVING FOREARM 06/11/2013 ILAN COOLEY APRNINA R 789.01 ABDOMINAL PAIN RIGHT UPPER QUADRANT 06/11/2013 ILAN COOLEY APRNINA R 719.43 PAIN IN JOINT INVOLVING FOREARM 06/11/2013 YASIR PANDYA LIAM R 789.01 ABDOMINAL PAIN RIGHT UPPER QUADRANT 06/11/2013 ANGELO SHIELDS APRN 719.43 PAIN IN JOINT INVOLVING FOREARM 06/11/2013 ANGELO SHIELDS APRN 789.01 ABDOMINAL PAIN RIGHT UPPER QUADRANT 06/30/2013 296.80 MO BIPOLAR NOS 06/30/2013 301.11 CHRONIC HYPOMANIC PERSONALITY DISORDER 06/30/2013 296.80 MO BIPOLAR NOS 06/30/2013 301.11 CHRONIC HYPOMANIC PERSONALITY DISORDER 06/30/2013 296.80 MO BIPOLAR NOS 06/30/2013 301.11 CHRONIC HYPOMANIC PERSONALITY DISORDER 06/30/2013 FABIAN GUTIERREZ PHD 296.80 MO BIPOLAR NOS 06/30/2013 FABIAN GUTIERREZ PHD 301.11 CHRONIC HYPOMANIC PERSONALITY DISORDER 06/30/2013 JAVIER SHEEHAN APRN 296.80 MO BIPOLAR NOS 06/30/2013 JAVIER SHEEHAN APRN 301.11 CHRONIC HYPOMANIC PERSONALITY DISORDER 06/30/2013 JAVIER SHEEHAN APRN 296.80 MO BIPOLAR NOS 06/30/2013 JAVIER SHEEHAN APRN 301.11 CHRONIC HYPOMANIC PERSONALITY DISORDER 06/30/2013 FABIAN GUTIERREZ PHD A 296.80 MO BIPOLAR NOS 06/30/2013 MATT YA, FABIAN Purcell 301.11 CHRONIC HYPOMANIC PERSONALITY DISORDER 06/30/2013 MYRA PANDYA WILFREDO OROURKE 296.80 MO BIPOLAR NOS 06/30/2013 MYRA PANDYA WILFREDO OROURKE 301.11 CHRONIC HYPOMANIC PERSONALITY DISORDER 06/30/2013 ZIMMERMAN DO, TRACE K 296.80 MO BIPOLAR NOS 06/30/2013 ZIMMERMAN DO TRACE K 301.11 CHRONIC HYPOMANIC PERSONALITY DISORDER 06/30/2013 FABIAN GUTIERREZ PHD A 296.80 MO BIPOLAR NOS 06/30/2013 MATT YA, FABIAN Purcell 301.11 CHRONIC HYPOMANIC PERSONALITY DISORDER 06/30/2013 MATT YA, FABIAN A 296.80 MO BIPOLAR NOS 06/30/2013 MATT YA, FABIAN Purcell 301.11 CHRONIC HYPOMANIC PERSONALITY DISORDER 06/30/2013 MYRA PANDYA WILFREDO OROURKE 296.80 MO BIPOLAR NOS 06/30/2013 MYRA PANDYA WILFREDO OROURKE 301.11 CHRONIC HYPOMANIC PERSONALITY DISORDER 06/30/2013 TRISTON GUZMAN APRN N 296.80 MO BIPOLAR NOS 06/30/2013 TRISTON GUZMAN APRN N 301.11 CHRONIC HYPOMANIC PERSONALITY DISORDER 06/30/2013 FABIAN GUTIERREZ PHD A 296.80 MO BIPOLAR NOS 06/30/2013 FABIAN GUTIERREZ PHD 301.11 CHRONIC HYPOMANIC PERSONALITY DISORDER 06/30/2013 MATT YA, FABIAN A 296.80 MO BIPOLAR NOS 06/30/2013 MATT YA, FABIAN Purcell 301.11 CHRONIC HYPOMANIC PERSONALITY DISORDER 06/30/2013 JAVIER SHEEHAN APRN 296.80 MO BIPOLAR NOS 06/30/2013 JAVIER SHEEHAN APRN 301.11 CHRONIC HYPOMANIC PERSONALITY DISORDER 06/30/2013 JAVIER SHEEHAN APRN T 296.80 MO BIPOLAR NOS 06/30/2013 JAVIER SHEEHAN APRN 301.11 CHRONIC HYPOMANIC PERSONALITY DISORDER 06/30/2013 ZIMMERMAN DO TRACE K 296.80 MO BIPOLAR NOS 06/30/2013 ZIMMERMAN DO, TRACE K 301.11 CHRONIC HYPOMANIC PERSONALITY DISORDER 06/30/2013 YASIR TOUCHER UP, LIAM R 296.80 MO BIPOLAR NOS 06/30/2013 YASIR TOUCHER UP, LIAM R 301.11 CHRONIC HYPOMANIC PERSONALITY DISORDER 06/30/2013 YASIR TOUCHER UP, LIAM R 296.80 MO BIPOLAR NOS 06/30/2013 YASIR TOUCHER UP, LIAM R 301.11 CHRONIC HYPOMANIC PERSONALITY DISORDER 06/30/2013 YASIR TOUCHER UP, LIAM R 296.80 MO BIPOLAR NOS 06/30/2013 YASIR TOUCHER UP, LIAM R 301.11 CHRONIC HYPOMANIC PERSONALITY DISORDER 06/30/2013 ALYSON PANDYA, ANGELO J 296.80 MO BIPOLAR NOS 06/30/2013 ALYSON PANDYA, ANGELO J 301.11 CHRONIC HYPOMANIC PERSONALITY DISORDER 07/05/2013 296.90 MOOD DISORDER NOS 07/05/2013 296.90 MOOD DISORDER NOS 07/05/2013 MATT YA, FABIAN A 296.90 MOOD DISORDER NOS 07/05/2013 JAVIER SHEEHAN APRN 296.90 MOOD DISORDER NOS 07/05/2013 JAVIER SHEEHAN APRN 296.90 MOOD DISORDER NOS 07/05/2013 MATT YA, FABIAN A 296.90 MOOD DISORDER NOS 07/05/2013 WILFREDO RENTERIA APRN 296.90 MOOD DISORDER NOS 07/05/2013 TRACE ZIMMERMAN DO K 296.90 MOOD DISORDER NOS 07/05/2013 MATT YA, FABIAN A 296.90 MOOD DISORDER NOS 07/05/2013 MATT YA, FABIAN A 296.90 MOOD DISORDER NOS 07/05/2013 WILFREDO RENTERIA APRN 296.90 MOOD DISORDER NOS 07/05/2013 TRISTON GUZMAN APRN 296.90 MOOD DISORDER NOS 07/05/2013 MATT YA, FABIAN A 296.90 MOOD DISORDER NOS 07/05/2013 MATT YA, FABIAN A 296.90 MOOD DISORDER NOS 07/05/2013 JAVIER SHEEHAN APRN 296.90 MOOD DISORDER NOS 07/05/2013 JAVIER SHEEHAN APRN 296.90 MOOD DISORDER NOS 07/05/2013 TRACE ZIMMERMAN DO K 296.90 MOOD DISORDER NOS 07/05/2013 LIAN COOLEY APRNINA R 296.90 MOOD DISORDER NOS 07/05/2013 YASIR PANDYA, LIAM R 296.90 MOOD DISORDER NOS 07/05/2013 LIAM COOLEY APRN R 296.90 MOOD DISORDER NOS 07/05/2013 ANGELO SHIELDS APRN 296.90 MOOD DISORDER NOS 08/25/2013 JAVIER SHEEHAN APRN 719.41 PAIN- SHOULDER 08/25/2013 JAVIER SHEEHAN APRN 719.41 PAIN- SHOULDER 08/25/2013 FABIAN GUTIERREZ PHD 719.41 PAIN- SHOULDER 08/25/2013 WILFREDO RENTERIA APRN 719.41 PAIN- SHOULDER 08/25/2013 TRACE ZIMMERMAN DO K 719.41 PAIN- SHOULDER 08/25/2013 FABIAN GUTIERREZ PHD 719.41 PAIN- SHOULDER 08/25/2013 MATT YA, FABIAN Purcell 719.41 PAIN- SHOULDER 08/25/2013 WILFREDO RENTERIA APRN 719.41 PAIN- SHOULDER 08/25/2013 TRISTON GUZMAN APRN 719.41 PAIN- SHOULDER 08/25/2013 FABIAN GUTIERREZ PHD 719.41 PAIN- SHOULDER 08/25/2013 MATT YA, FABIAN Purcell 719.41 PAIN- SHOULDER 08/25/2013 JAVIER SHEEHAN APRN 719.41 PAIN- SHOULDER 08/25/2013 JAVIER SHEEHAN APRN 719.41 PAIN- SHOULDER 08/25/2013 ZIMMERMAN DOYUNGA K 719.41 PAIN- SHOULDER 08/25/2013 LIAM COOLEY APRN R 719.41 PAIN- SHOULDER 08/25/2013 ILAN COOLEY APRNINA R 719.41 PAIN- SHOULDER 08/25/2013 YASIR PANDYA, LIAM R 719.41 PAIN- SHOULDER 08/25/2013 ANGELO SHIELDS APRN 719.41 PAIN- SHOULDER 09/27/2013 ZIMMERMAN DO TRACE K V04.81 FLU SHOT 09/27/2013 FABIAN GUTIERREZ PHD V04.81 FLU SHOT 09/27/2013 FABIAN GUTIERREZ PHD V04.81 FLU SHOT 09/27/2013 WILFREDO RENTERIA APRN V04.81 FLU SHOT 09/27/2013 TRISTON GUZMAN APRN N V04.81 FLU SHOT 09/27/2013 FABIAN GUTIERREZ PHD V04.81 FLU SHOT 09/27/2013 MATT YA, FABIAN Purcell V04.81 FLU SHOT 09/27/2013 JAVIER SHEEHAN APRN V04.81 FLU SHOT 09/27/2013 JAVIER SHEEHAN APRN V04.81 FLU SHOT 09/27/2013 TRACE ZIMMERMAN DO V04.81 FLU SHOT 09/27/2013 LIAM COOLEY APRN R V04.81 FLU SHOT 09/27/2013 LIAM COOLEY APRN R V04.81 FLU SHOT 09/27/2013 LIAM COOLEY APRN R V04.81 FLU SHOT 09/27/2013 ANGELO SHIELDS APRN V04.81 FLU SHOT 12/06/2013 TRISTON GUZMAN APRN 691.8 OTHER ATOPIC DERMATITIS AND RELATED CONDITIONS 12/06/2013 FABIAN GUTIERREZ PHD 691.8 OTHER ATOPIC DERMATITIS AND RELATED CONDITIONS 12/06/2013 MATT YA, FABIAN Purcell 691.8 OTHER ATOPIC DERMATITIS AND RELATED CONDITIONS 12/06/2013 JAVIER SHEEHAN APRN 691.8 OTHER ATOPIC DERMATITIS AND RELATED CONDITIONS 12/06/2013 JAVIER SHEEHAN APRN 691.8 OTHER ATOPIC DERMATITIS AND RELATED CONDITIONS 12/06/2013 TRACE ZIMMERMAN DO 691.8 OTHER ATOPIC DERMATITIS AND RELATED CONDITIONS 12/06/2013 LIAM COOLEY APRN R 691.8 OTHER ATOPIC DERMATITIS AND RELATED CONDITIONS 12/06/2013 LIAM COOLEY APRN R 691.8 OTHER ATOPIC DERMATITIS AND RELATED CONDITIONS 12/06/2013 LIAM COOLEY APRN R 691.8 OTHER ATOPIC DERMATITIS AND RELATED CONDITIONS 12/06/2013 ANGELO SHIELDS APRN 691.8 OTHER ATOPIC DERMATITIS AND RELATED CONDITIONS 2014 TRACE ZIMMERMAN DO Ot 008.8 VIRAL ENTERITIS NOS 2014 TRACE ZIMMERMAN DO Ot 300.00 ANXIETY STATE NOS 2014 TRACE ZIMMERMAN DO Ot 303.90 ALCOH DEP NEC/NOS-UNSPEC 2014 TRACE ZIMMERMAN DO Ot 305.1 TOBACCO USE DISORDER 11/15/2014 Ot 218.9 11/15/2014 Ot 616.0 11/15/2014 Ot 620.2 11/15/2014 Ot 285.9 11/15/2014 Ot 626.2 11/15/2014 Ot V72.63 11/15/2014 Ot V72.81 11/15/2014 Ot V43.82 11/15/2014 Ot V76.12 11/15/2014 Ot 193 11/15/2014 Ot 724.5 11/15/2014 Ot 285.9 11/15/2014 Ot 618.4 11/15/2014 Ot 626.2 11/15/2014 Ot V72.63 11/15/2014 Ot V74.8 11/15/2014 Ot 789.01 11/15/2014 Ot 575.8 11/15/2014 Ot V72.63 11/15/2014 Ot V74.8 11/15/2014 TACHO PICKARD, TEVIN Alegre Ot V43.82 11/15/2014 TACHO PICKARD, TEVIN Alegre Ot V76.12 11/15/2014 JAVIER SALMERON DO Ot 780.60 FEVER, UNSPECIFIED 12/27/2014 LIAM COOLEY APRN R 789.03 ABDOMINAL PAIN RIGHT LOWER QUADRANT 12/27/2014 LIAM COOLEY APRN R V70.0 ROUTINE GENERAL MEDICAL EXAMINATION AT A HEALTH CARE FACILITY 12/27/2014 LIAM COOLEY APRN R 789.03 ABDOMINAL PAIN RIGHT LOWER QUADRANT 12/27/2014 LIAM COOLEY APRN R V70.0 ROUTINE GENERAL MEDICAL EXAMINATION AT A HEALTH CARE FACILITY 12/27/2014 LIAM COOLEY APRN R 789.03 ABDOMINAL PAIN RIGHT LOWER QUADRANT 12/27/2014 LIAM COOLEY APRN R V70.0 ROUTINE GENERAL MEDICAL EXAMINATION AT A HEALTH CARE FACILITY 12/27/2014 ANGELO SHIELDS APRN 789.03 ABDOMINAL PAIN RIGHT LOWER QUADRANT 12/27/2014 ANGELO SHIELDS APRN V70.0 ROUTINE GENERAL MEDICAL EXAMINATION AT A HEALTH CARE FACILITY 01/04/2015 LIAM COOLEY APRN 291.82 ALCOHOL-INDUCED SLEEP DISORDERS 01/04/2015 ANGELO SHIELDS APRN 291.82 ALCOHOL-INDUCED SLEEP DISORDERS 01/30/2015 ANGELO SHIELDS APRN NODX NO DIAGNOSIS 02/23/2015 ANGELO SHIELDS APRN 296.89 MO BIPOLAR II 02/23/2015 ANGELO SHIELDS APRN 305.00 NONDEPENDENT ALCOHOL ABUSE UNSPECIFIED DRINKING BEHAVIOR 02/23/2015 ANGELO SHIELDS APRN 309.81 AN PTSD 05/29/2015 Ot 218.9 05/29/2015 Ot 616.0 05/29/2015 Ot 620.2 05/29/2015 Ot 285.9 05/29/2015 Ot 626.2 05/29/2015 Ot V72.63 05/29/2015 Ot V72.81 05/29/2015 Ot V43.82 05/29/2015 Ot V76.12 05/29/2015 Ot 193 05/29/2015 Ot 724.5 05/29/2015 Ot 285.9 05/29/2015 Ot 618.4 05/29/2015 Ot 626.2 05/29/2015 Ot V72.63 05/29/2015 Ot V74.8 05/29/2015 Ot 789.01 05/29/2015 Ot 575.8 05/29/2015 Ot V72.63 05/29/2015 Ot V74.8 05/29/2015 TACHO PICKARD, TEVIN Alegre Ot V43.82 05/29/2015 TACHO PICKARD, TEVIN Codey Ot V76.12 06/15/2015 ALEIDA MODI L PROCESS CONTROL ENGINEER Ot 625.9 07/14/2015 EMMIE PICKARD, DARRELL Ot 562.10 DIVERTICULOSIS COLON (W/O MENT OF HEMORR 07/14/2015 EMMIE PICKARD, DARRELL Ot 564.00 UNSPEC CONSTIPATION 07/14/2015 EMMIE PICKARD, DARRELL Ot 569.0 ANAL RECTAL POLYP 09/26/2015 ALEIDA MODI PROCESS CONTROL ENGINEER Ot R10.13 09/26/2015 ALEIDA MODI PROCESS CONTROL ENGINEER Ot R10.9 10/03/2015 ALEIDA MODI PROCESS CONTROL ENGINEER Ot R10.13 10/03/2015 ALEIDA MODI PROCESS CONTROL ENGINEER Ot R10.9 11/27/2016 Ot 193 MALIGN NEOPL THYROID 11/27/2016 Ot 724.5 BACKACHE NOS 11/27/2016 Ot 285.9 ANEMIA NOS 11/27/2016 Ot 618.4 UTERVAGINAL PROLAPSE NOS 11/27/2016 Ot 626.2 EXCESSIVE MENSTRUATION 11/27/2016 Ot V72.63 PRE- PROCEDURAL LABORATORY EXAMINATION 11/27/2016 Ot V74.8 SCREEN- BACTERIAL DIS NEC 11/27/2016 Ot 789.01 ABDOMINAL PAIN, RIGHT UPPER QUADRANT 11/27/2016 Ot 575.8 DIS OF GALLBLADDER NEC 11/27/2016 Ot V72.63 PRE- PROCEDURAL LABORATORY EXAMINATION 11/27/2016 Ot V74.8 SCREEN- BACTERIAL DIS NEC 11/27/2016 TEVIN TITUS MD Ot V43.82 BREAST REPLACEMENT STATUS 11/27/2016 TEVIN TITUS MD Ot V76.12 OTH SCREEN MAMMO-MALIGN NEOPLASM OF JATIN 11/27/2016 MOISES MODIIA L PROCESS CONTROL ENGINEER Ot 625.9 FEM GENITAL SYMPTOMS NOS 11/27/2016 EMMIE PICKARD, DARRELL Ot V72.84 EXAM PRE-OPERATIVE NOS 11/27/2016 MOISES MODIIA L PROCESS CONTROL ENGINEER Ot R10.13 EPIGASTRIC PAIN 11/27/2016 SEKOU MODIRICIA L PROCESS CONTROL ENGINEER Ot R10.9 UNSPECIFIED ABDOMINAL PAIN 11/27/2016 Ot 193 MALIGN NEOPL THYROID 11/27/2016 Ot 724.5 BACKACHE NOS 11/27/2016 Ot 285.9 ANEMIA NOS 11/27/2016 Ot 618.4 UTERVAGINAL PROLAPSE NOS 11/27/2016 Ot 626.2 EXCESSIVE MENSTRUATION 11/27/2016 Ot V72.63 PRE- PROCEDURAL LABORATORY EXAMINATION 11/27/2016 Ot V74.8 SCREEN- BACTERIAL DIS NEC 11/27/2016 Ot 789.01 ABDOMINAL PAIN, RIGHT UPPER QUADRANT 11/27/2016 Ot 575.8 DIS OF GALLBLADDER NEC 11/27/2016 Ot V72.63 PRE- PROCEDURAL LABORATORY EXAMINATION 11/27/2016 Ot V74.8 SCREEN- BACTERIAL DIS NEC 11/27/2016 TEVIN TITUS MD Ot V43.82 BREAST REPLACEMENT STATUS 11/27/2016 TEVIN TITUS MD Ot V76.12 OTH SCREEN MAMMO-MALIGN NEOPLASM OF JATIN 11/27/2016 MOISES MODIIA L PROCESS CONTROL ENGINEER Ot 625.9 FEM GENITAL SYMPTOMS NOS 11/27/2016 DARRELL OLEA MD Ot V72.84 EXAM PRE-OPERATIVE NOS 11/27/2016 MOISES MODIIA L PROCESS CONTROL ENGINEER Ot R10.13 EPIGASTRIC PAIN 11/27/2016 LY ALEIDA L PROCESS CONTROL ENGINEER Ot R10.9 UNSPECIFIED ABDOMINAL PAIN 11/27/2016 EVITA SLATER TOUCHER UP Ot F10.10 ALCOHOL ABUSE, UNCOMPLICATED 11/27/2016 EVITA SLATER TOUCHER UP Ot F10.231 ALCOHOL DEPENDENCE WITH WITHDRAWAL DELIR 11/27/2016 EVITA SLATER APRN Ot F41.9 ANXIETY DISORDER, UNSPECIFIED 11/27/2016 EVITA SLATER APRN Ot K52.9 NONINFECTIVE GASTROENTERITIS AND COLITIS 11/28/2016 Ot 193 MALIGN NEOPL THYROID 11/28/2016 Ot 724.5 BACKACHE NOS 11/28/2016 Ot 285.9 ANEMIA NOS 11/28/2016 Ot 618.4 UTERVAGINAL PROLAPSE NOS 11/28/2016 Ot 626.2 EXCESSIVE MENSTRUATION 11/28/2016 Ot V72.63 PRE- PROCEDURAL LABORATORY EXAMINATION 11/28/2016 Ot V74.8 SCREEN- BACTERIAL DIS NEC 11/28/2016 Ot 789.01 ABDOMINAL PAIN, RIGHT UPPER QUADRANT 11/28/2016 Ot 575.8 DIS OF GALLBLADDER NEC 11/28/2016 Ot V72.63 PRE- PROCEDURAL LABORATORY EXAMINATION 11/28/2016 Ot V74.8 SCREEN- BACTERIAL DIS NEC 11/28/2016 TEVIN TITUS MD Ot V43.82 BREAST REPLACEMENT STATUS 11/28/2016 TEVIN TITUS MD Ot V76.12 OTH SCREEN MAMMO-MALIGN NEOPLASM OF JATIN 11/28/2016 ALEIDA OMDI PROCESS CONTROL ENGINEER Ot 625.9 FEM GENITAL SYMPTOMS NOS 11/28/2016 EMMIE PICKARD, DARRELL Ot V72.84 EXAM PRE-OPERATIVE NOS 11/28/2016 ALEIDA MODI PROCESS CONTROL ENGINEER Ot R10.13 EPIGASTRIC PAIN 11/28/2016 ALEIDA MODI PROCESS CONTROL ENGINEER Ot R10.9 UNSPECIFIED ABDOMINAL PAIN 11/28/2016 EVITA SLATER TOUCHER UP Ot F10.10 ALCOHOL ABUSE, UNCOMPLICATED 11/28/2016 EVITA SLATER APRN Ot F10.231 ALCOHOL DEPENDENCE WITH WITHDRAWAL DELIR 11/28/2016 EVITA SLATER TOUCHER UP Ot F41.9 ANXIETY DISORDER, UNSPECIFIED 11/28/2016 EVITA SLATER APRN Ot K52.9 NONINFECTIVE GASTROENTERITIS AND COLITIS Procedures Code [place] [address] INDIV PSYTX 45/50 MIN 09/25/2012 07224 INDIV PSYTX 45/50 MIN 11/02/2012 40268 INDIV PSYTX 45/50 MIN 11/06/2012 BAMBI GALLEGOS 12/23/2012 48699 UA LONG DIP 04/21/2013 UROLOGY Chase Napier 04/22/2013 51900 ROUTINE VENIPUNCTURE 07/05/2013 06422 T4 FREE 07/05/2013 26870 T3 TOTAL 07/05/2013 24848 PSYTX PT&/FAMILY 45 MINUTES 07/06/2013 69912 PSYTX PT&/FAMILY 45 MINUTES 08/03/2013 65537 PSYTX PT&/FAMILY 45 MINUTES 08/17/2013 59930 XRAY SHOULDER LEFT COMP 2 VIEWS 08/25/2013 15497 PSYTX PT&/FAMILY 45 MINUTES 09/13/2013 28415 PSYTX PT&/FAMILY 45 MINUTES 10/12/2013 31614 PSYTX PT&/FAMILY 45 MINUTES 11/09/2013 56003 PSYTX PT&/FAMILY 45 MINUTES 12/23/2013 60650 PSYTX PT&/FAMILY 45 MINUTES 01/14/2014 ADDICTION [facility] 01/04/2015 Results Test Result Range Urine drug screening test - 11/27/16 10:30 Urine phencyclidine detection by screening method NEGATIVE NEGATIVE Urine benzodiazepines detection by screening method NEGATIVE NEGATIVE Urine cocaine detection NEGATIVE NEGATIVE Urine amphetamines detection by screening method NEGATIVE NEGATIVE Urine methamphetamine detection by screening method NEGATIVE NEGATIVE Urine cannabinoids detection by screening method NEGATIVE NEGATIVE Urine opiates detection by screening method NEGATIVE NEGATIVE Urine barbiturates detection NEGATIVE NEGATIVE Screening urine tricyclic antidepressants detection NEGATIVE NEGATIVE Urine methadone detection by screening method NEGATIVE NEGATIVE Urine oxycodone detection NEGATIVE NEGATIVE Urine propoxyphene detection NEGATIVE NEGATIVE Complete urinalysis with reflex to culture - 11/27/16 10:30 Urine color determination YELLOW NRG Urine clarity determination CLEAR NRG Urine pH measurement by test strip 5 5-9 Specific gravity of urine by test strip 1.025 1.016- 1.022 Urine protein assay by test strip, semi-quantitative 1+ NEGATIVE Urine glucose detection by automated test strip NEGATIVE NEGATIVE Erythrocytes detection in urine sediment by light microscopy 1+ NEGATIVE Urine ketones detection by automated test strip 4+ NEGATIVE Urine nitrite detection by test strip NEGATIVE NEGATIVE Urine total bilirubin detection by test strip NEGATIVE NEGATIVE Urine urobilinogen measurement by automated test strip (mass/volume) NORMAL NORMAL Urine leukocyte esterase detection by dipstick NEGATIVE NEGATIVE Automated urine sediment erythrocyte count by microscopy (number/high power field) RARE NRG Automated urine sediment leukocyte count by microscopy (number/high power field ) [HPF] NRG Bacteria detection in urine sediment by light microscopy FEW NRG Squamous epithelial cells detection in urine sediment by light microscopy 5-10 NRG Crystals detection in urine sediment by light microscopy NONE NRG Casts detection in urine sediment by light microscopy PRESENT NRG Mucus detection in urine sediment by light microscopy SMALL NRG Complete urinalysis with reflex to culture NO NRG Hyaline casts detection in urine sediment by light microscopy 2-5 NRG Complete blood count (CBC) with automated white blood cell (WBC) differential - 11/27/16 10:40 Blood leukocytes automated count (number/volume) 12.9 10*3/uL 4.3-11.0 Blood erythrocytes automated count (number/volume) 5.09 10*6/uL 4.35-5.85 Venous blood hemoglobin measurement (mass/volume) 16.0 g/dL 11.5-16.0 Blood hematocrit (volume fraction) 46 % 35-52 Automated erythrocyte mean corpuscular volume 90 [foz_us] 80-99 Automated erythrocyte mean corpuscular hemoglobin (mass per erythrocyte) 31 pg 25-34 Automated erythrocyte mean corpuscular hemoglobin concentration measurement ( mass/volume) 35 g/dL 32-36 Automated erythrocyte distribution width ratio 13.2 % 10.0-14.5 Automated blood platelet count (count/volume) 282 10*3/uL 130-400 Automated blood platelet mean volume measurement 8.9 [foz_us] 7.4-10.4 Automated blood neutrophils/100 leukocytes 83 % 42-75 Automated blood lymphocytes/100 leukocytes 14 % 12-44 Blood monocytes/100 leukocytes 3 % 0-12 Automated blood eosinophils/100 leukocytes 0 % 0-10 Automated blood basophils/100 leukocytes 0 % 0-10 Blood neutrophils automated count (number/volume) 10.7 10*3 1.8-7.8 Blood lymphocytes automated count (number/volume) 1.7 10*3 1.0-4.0 Blood monocytes automated count (number/volume) 0.4 10*3 0.0-1.0 Automated eosinophil count 0.0 10*3/uL 0.0-0.3 Automated blood basophil count (count/volume) 0.0 10*3/uL 0.0-0.1 PT panel in platelet poor plasma by coagulation assay - 11/27/16 10:40 Prothrombin time (PT) in platelet poor plasma by coagulation assay 13.0 s 12.2-14.7 INR in platelet poor plasma or blood by coagulation assay 1.0 0.8-1.4 Comprehensive metabolic panel - 11/27/16 10:40 Serum or plasma sodium measurement (moles/volume) 134 mmol/L 135-145 Serum or plasma potassium measurement (moles/volume) 4.3 mmol/L 3.6-5.0 Serum or plasma chloride measurement (moles/volume) 96 mmol/L 98-107 Carbon dioxide 21 mmol/L 21-32 Serum or plasma anion gap determination (moles/volume) 17 mmol/L 5-14 Serum or plasma urea nitrogen measurement (mass/volume) 22 mg/dL 7-18 Serum or plasma creatinine measurement (mass/volume) 0.90 mg/dL 0.60-1.30 Serum or plasma urea nitrogen/creatinine mass ratio 24 NRG Serum or plasma creatinine measurement with calculation of estimated glomerular filtration rate > NRG Serum or plasma glucose measurement (mass/volume) 195 mg/dL 70-105 Serum or plasma calcium measurement (mass/volume) 9.7 mg/dL 8.5-10.1 Serum or plasma total bilirubin measurement (mass/volume) 0.9 mg/dL 0.1-1.0 Serum or plasma alkaline phosphatase measurement (enzymatic activity/volume) 111 U/L 40-136 Serum or plasma aspartate aminotransferase measurement (enzymatic activity/ volume) 64 U/L 5-34 Serum or plasma alanine aminotransferase measurement (enzymatic activity/volume ) 34 U/L 0-55 Serum or plasma protein measurement (mass/volume) 7.4 g/dL 6.4-8.2 Serum or plasma albumin measurement (mass/volume) 4.6 g/dL 3.2-4.5 THYROID STIMULATING HORMONE - 11/27/16 10:40 THYROID STIMULATING HORMONE 0.58 u[iU]/mL 0.35-4.94 Serum or plasma ethanol measurement (mass/volume) - 11/27/16 10:40 Serum or plasma ethanol measurement (mass/volume) < mg/dL <10 Encounters ACCT No. Visit Date/Time Discharge Status Pt. Type Provider Facility Loc./Unit Complaint [id number] 02/23/2015 10:57:00 02/23/2015 23:59:59 CLS Outpatient ANGELO SHIELDS APRN [id number] 01/04/2015 08:54:00 01/04/2015 23:59:59 CLS Outpatient ILAN COOLEY APRNTEREZA Whitley [id number] 12/28/2014 08:26:00 12/28/2014 23:59:59 CLS Outpatient ILAN COOLEY APRNTEREZA Whit[place] [id number] 12/27/2014 13:49:00 12/27/2014 23:59:59 CLS Outpatient ILAN COOLEY APRNTEREZA Whitley [id number] 09/02/2014 07:14:00 09/02/2014 23:59:59 CLS Outpatient TRACE ZIMMERMAN DO [id number] 08/03/2014 12:17:00 08/03/2014 23:59:59 CLS Outpatient JAVIER SHEEHAN APRN [id number] 04/29/2014 16:28:00 04/29/2014 23:59:59 CLS Outpatient JAVIER SHEEHAN APRN [id number] 01/13/2014 10:54:00 01/13/2014 23:59:59 CLS Outpatient FABIAN GUTIERREZ PHD [id number] 12/22/2013 08:01:00 12/22/2013 23:59:59 CLS Outpatient FABIAN GUTIERREZ PHD [id number] 12/06/2013 13:49:00 12/06/2013 23:59:59 CLS Outpatient ZOEY BETANCUR APRNTRISTON Roger [id number] 11/25/2013 10:27:00 11/25/2013 23:59:59 CLS Outpatient WILFREDO RENTERIA APRN [id number] 11/08/2013 13:52:00 11/08/2013 23:59:59 CLS Outpatient FABIAN GUTIERREZ PHD [id number] 10/11/2013 09:59:00 10/11/2013 23:59:59 CLS Outpatient FABIAN GUTIERREZ PHD [id number] 09/27/2013 17:06:00 09/27/2013 23:59:59 CLS Outpatient TRACE ZIMMERMAN DO [id number] 09/17/2013 14:23:00 09/17/2013 23:59:59 CLS Outpatient WILFREDO RENTERIA APRN [id number] 09/10/2013 08:50:00 09/10/2013 23:59:59 CLS Outpatient FABIAN GUTIERREZ PHD [id number] 08/25/2013 15:41:00 08/25/2013 23:59:59 CLS Outpatient AGUILA JAVIER PANDYA [id number] 08/25/2013 15:41:00 08/25/2013 23:59:59 CLS Outpatient AGUILA YA JAVIER Selvin [id number] 08/16/2013 09:01:00 08/16/2013 23:59:59 CLS Outpatient FABIAN GUTIERREZ PHD [id number] 02/16/2013 14:01:00 02/16/2013 23:59:59 CLS Outpatient TRACE ZIMMERMAN DO [id number] 01/05/2013 11:05:00 01/05/2013 23:59:59 CLS Outpatient [id number] 12/23/2012 14:23:00 12/23/2012 23:59:59 CLS Outpatient [id number] 11/06/2012 12:41:00 11/06/2012 23:59:59 CLS Outpatient [id number] 10/29/2012 15:06:00 10/29/2012 23:59:59 CLS Outpatient [id number] 09/25/2012 16:05:00 09/25/2012 23:59:59 CLS Outpatient TRACE ZIMMERMAN DO [id number] 08/02/2013 14:54:00 Document Registration [id number] 07/05/2013 13:30:00 Document Registration [id number] 06/30/2013 14:49:00 Document Registration [id number] 04/21/2013 08:43:00 Document Registration [id number] 04/21/2013 08:43:00 Document Registration [id number] 11/27/2016 10:15:00 11/27/2016 14:02:00 DIS Emergency EVITA SLATER APRN [facility] ER NOT EATING/DIARRHEA ANXIETY [id number] 09/22/2015 09:31:00 09/22/2015 23:59:59 CLS Outpatient ALEIDA MODI [facility] CARD ABD PAIN [id number] 07/14/2015 08:43:00 07/14/2015 11:30:00 DIS Outpatient DARRELL OLEA MD [facility] SCREENING;CHANGE IN BOWEL HABITS [id number] 07/13/2015 07:20:00 07/13/2015 23:59:59 CLS Outpatient DARRELL OLEA MD [facility] PREOP SCREENING;CHANGE IN BOWEL HABITS [id number] 07/06/2015 15:13:00 07/06/2015 23:59:59 CLS Outpatient COLTHARP TAYLOR FAGAN [facility] QUICK [id number] 05/29/2015 15:07:00 05/29/2015 23:59:59 CLS Outpatient ALEIDA MODI PROCESS CONTROL ENGINEER [facility] RAD PELVIC PAIN [id number] 11/15/2014 08:25:00 11/15/2014 09:45:00 DIS Emergency JARON DOJAVIER [facility] ER FEVER [id number] 08/18/2014 21:15:00 2014 15:55:00 DIS Inpatient TRACE ZIMMERMAN DO [facility] SURGICAL ACUTE ABDOMINAL PAIN ;ETOH WITHDRAWAL [id number] 04/20/2013 10:45:00 04/20/2013 23:59:59 CLS Outpatient TEVIN TITUS MD [facility] RAD SCREENING [id number] 12/04/2012 07:30:00 Document Registration [id number] 12/02/2012 08:47:00 Document Registration [id number] 11/20/2012 07:55:00 Document Registration [id number] 11/11/2012 08:50:00 Document Registration [id number] 11/05/2012 08:47:00 Document Registration [id number] 04/17/2012 14:25:00 Document Registration [id number] 04/11/2011 08:28:00 Document Registration [id number] 03/01/2011 05:35:00 Document Registration [id number] 02/27/2011 13:10:00 Document Registration [id number] 01/26/2010 10:35:00 Document Registration
[2017-11-13] MEDS ORDERED: FAMOTIDINE 20MG/2ML IV (PEPCID) ONE (11:14)
[2017-11-13 11:15] LABS: BASOPHILS % (AUTO) 0 % (0-10); EOSINOPHILS % (AUTO) 0 % (0-10); LYMPHOCYTES # (AUTO) 1.7 X 10^3 (1.0-4.0); LYMPHOCYTES % (AUTO) 15 % (12-44); MEAN CORPUSCULAR HEMOGLOBIN 32 PG (25-34); MEAN CORPUSCULAR HGB CONC 35 G/DL (32-36); MEAN CORPUSCULAR VOLUME 91 FL (80-99); MEAN PLATELET VOLUME 8.8 FL (7.4-10.4); MONOCYTES # (AUTO) 1.1 X 10^3 (0.0-1.0); MONOCYTES % (AUTO) 9 % (0-12); NEUTROPHILS # (AUTO) 8.8 X 10^3 (1.8-7.8); NEUTROPHILS % (AUTO) 76 % (42-75); PLATELET COUNT 332 10^3/uL (130-400); RED BLOOD COUNT 5.07 10^6/uL (4.35-5.85); RED CELL DISTRIBUTION WIDTH 13.2 % (10.0-14.5); WHITE BLOOD COUNT 11.6 10^3/uL (4.3-11.0)
[2017-11-13] MEDS ORDERED: PROMETHAZINE INJ 25 MG/ML (PHENERGAN) AMP IVP ONE (11:15)
[2017-11-13] MEDS ORDERED: NS IV 1000 ML 1,000 ML IV SCH (11:15)
[2017-11-13] MEDS ORDERED: LIDOCAINE 2% VISCOUS 15 ML UDC PO ONE (11:15)
[2017-11-13] MEDS ORDERED: ANTACID SUSP 30 ML UDC (MYLANTA) PO ONE (11:15)
[2017-11-13] MEDS ORDERED: CEPH-507 PO (11:39)
[2017-11-13] MEDS ORDERED: ONDA8TAB9 PO (11:39)
[2017-11-13 11:43] LABS: ALANINE AMINOTRANSFERASE 57 U/L (0-55); ALBUMIN 4.6 GM/DL (3.2-4.5); ALCOHOL < 10 MG/DL (<10); ANION GAP 13 MMOL/L (5-14); ASPARTATE AMINO TRANSFERASE 60 U/L (5-34); BILIRUBIN,TOTAL 1.1 MG/DL (0.1-1.0); BLOOD UREA NITROGEN 15 MG/DL (7-18); BUN/CREATININE RATIO 21; CALCIUM 9.4 MG/DL (8.5-10.1); CARBON DIOXIDE 26 MMOL/L (21-32); CHLORIDE 96 MMOL/L (98-107); CREATININE SERUM 0.71 MG/DL (0.60-1.30); GFR ESTIMATED > 60; GLUCOSE 122 MG/DL (70-105); LIPASE 23 U/L (8-78); POTASSIUM 4.1 MMOL/L (3.6-5.0); SODIUM 135 MMOL/L (135-145)
--- NOTE | 2017-11-13 11:49 | Diagnostic Imaging Report ---
EXAMINATION: 3 views of the right hand. INDICATION: Injury. FINDINGS: No acute fracture, dislocation or radiopaque foreign body seen. Lucency along the ulnar aspect of the base of the fifth metacarpal could be secondary to old injury or subchondral erosion. No significant arthritic changes seen otherwise. IMPRESSION: No definite acute fracture. Small lucency along the base of the fifth metacarpal bone is probably secondary to old injury or subchondral cyst. Dictated by: Dictated on workstation # [id number]
[2017-11-13 12:14] LABS: BILIRUBIN,URINE NEGATIVE (NEGATIVE); KETONES,URINE NEGATIVE (NEGATIVE); LEUKOCYTE ESTERASE ,URINE 1+ (NEGATIVE); NITRITE,URINE NEGATIVE (NEGATIVE); PH,URINE 8 (5-9); PROTEIN,URINE NEGATIVE (NEGATIVE); UROBILINOGEN,URINE NORMAL (NORMAL)
[2017-11-13 12:37] VITALS: BP 138/89
[2017-11-14] MEDS ORDERED: FAMOTIDINE 20MG/2ML IV (PEPCID) IVP SCH (09:00)
== END 2017-11-13 12:46 | disposition home or self-care (01) ==
LOC: EDUNIT# 10:38 → ER 10:41
DX: S61.210A Laceration without foreign body of right index finger without damage to nail, initial encounter (principal); R11.2 Nausea with vomiting, unspecified; F90.9 Attention-deficit hyperactivity disorder, unspecified type; F41.9 Anxiety disorder, unspecified; F31.9 Bipolar disorder, unspecified; F17.210 Nicotine dependence, cigarettes, uncomplicated; Z90.710 Acquired absence of both cervix and uterus; W22.09XA Striking against other stationary object, initial encounter; W25.XXXA Contact with sharp glass, initial encounter
CPT/HCPCS: 36415; 73130; 80053; 80320; 81000; 83690; 85025; 99282

== ENCOUNTER 2018-06-28 22:04 | Observation (INO) | payer MEDICAID ==
[~2018-06-28] VITALS: Ht 160 cm; Wt 49.0 kg
[~2018-06-28 22:04] MED LIST changes: +CEPH-507 PO; +ONDA8TAB9 PO
[2018-06-28] MEDS ORDERED: LACTATED RINGERS 1,000 ML IV ONE (22:07)
[2018-06-28 22:38] LABS: BASOPHILS % (AUTO) 1 % (0-10); EOSINOPHILS % (AUTO) 1 % (0-10); HEMATOCRIT 41 % (35-52); HEMOGLOBIN 14.5 G/DL (11.5-16.0); LYMPHOCYTES # (AUTO) 2.3 X 10^3 (1.0-4.0); LYMPHOCYTES % (AUTO) 43 % (12-44); MEAN CORPUSCULAR HEMOGLOBIN 32 PG (25-34); MEAN CORPUSCULAR HGB CONC 36 G/DL (32-36); MEAN CORPUSCULAR VOLUME 89 FL (80-99); MEAN PLATELET VOLUME 8.8 FL (7.4-10.4); MONOCYTES # (AUTO) 0.6 X 10^3 (0.0-1.0); MONOCYTES % (AUTO) 11 % (0-12); NEUTROPHILS # (AUTO) 2.4 X 10^3 (1.8-7.8); NEUTROPHILS % (AUTO) 45 % (42-75); PLATELET COUNT 209 10^3/uL (130-400); RED BLOOD COUNT 4.56 10^6/uL (4.35-5.85); WHITE BLOOD COUNT 5.3 10^3/uL (4.3-11.0)
[2018-06-28 22:45] VITALS: BP 139/97
[2018-06-28 23:00] VITALS: BP 138/84
[2018-06-28 23:00] LABS: ALANINE AMINOTRANSFERASE 59 U/L (0-55); ALBUMIN 4.2 GM/DL (3.2-4.5); ALKALINE PHOSPHATASE 115 U/L (40-136); BILIRUBIN,TOTAL 0.3 MG/DL (0.1-1.0); BUN/CREATININE RATIO 16; CALCIUM 8.8 MG/DL (8.5-10.1); CARBON DIOXIDE 22 MMOL/L (21-32); CHLORIDE 105 MMOL/L (98-107); CREATININE SERUM 0.68 MG/DL (0.60-1.30); GFR ESTIMATED > 60; GLUCOSE 99 MG/DL (70-105); POTASSIUM 3.7 MMOL/L (3.6-5.0); SALICYLATE < 5.0 MG/DL (5.0-20.0); SODIUM 139 MMOL/L (135-145); TOTAL PROTEIN 6.8 GM/DL (6.4-8.2)
[2018-06-28 23:01] LABS: ACETAMINOPHEN < 10 UG/ML (10-30)
--- NOTE | 2018-06-28 23:01 | ED Psychosocial ---
General Chief Complaint: Substance Abuse Stated Complaint: DRUNK Nursing Triage Note: pt verbalized drinking tonight vodka with wine. pt denies being sucidial. pt states she called [facility] for help with her drinking Source: patient, EMS History of Present Illness Date Seen by Provider: Jun 28, 2018 Time Seen by Provider: 22:02 Initial Comments PT ARRIVES VIA EMS FROM HOME PT STATES "I DRANK ALOT OF ALCOHOL" PT STATES "I KEPT BUYING MINI SHOOTERS" --PT STATES SHE HAS HAD 60 IN THE LAST WEEK STATES TODAY SHE HAD 5 MINI-SHOTS OF VODKA AND 1-2 BOTTLES OF WINE STATES "I'VE DRANK FOR A LONG TIME BUT I NEVER DID THAT BEFORE" STATES SHE DRINKS SEVERAL TIMES A WEEK, WITH BRIEF PERIODS OF BEING SOBER ( PER OLD RECORDS, PT HAS HISTORY OF DRINKING HEAVILY EVERY DAY--VODKA AND WINE )-- NO REPORTED HISTORY OF ALCOHOL WITHDRAWL SEIZURES, BUT STATES SHE HAD THE SHAKES YESTERDAY MORNING, SO SHE WENT OUT AND GOT MORE ALCOHOL AND THE SHAKING STOPPED WHEN SHE STARTED DRINKING. STATES "I WAS IN A BAD RELATIONSHIP AND IT DIDN'T WORK OUT, SO IS STARTED DRINKING AND I COULDN'T STOP" --STATES SHE AND BOYFRIEND "PERMANENTLY SUSPENDED " THE RELATIONSHIP 2 FRIDAYS AGO STATES SHE GOT A JOB 3 MONTHS AGO, BUT "DIDN'T SHOW UP FOR WORK LAST FRIDAY" PT DENIES BEING SUICIDAL EMS REPORT THAT PT CALLED [facility], BECAUSE SHE WAS TRYING TO HARM HERSELF. PT STATES THAT SHE CALLED [facility] TO GET HELP WITH DRINKING. PT STATES SHE USED TO SEE SOMEONE AT [facility] MENTAL HEALTH, BUT HAS NOT SEEN FOR A LONG TIME. DOES NOT STATE WHAT MENTAL HEALTH ISSUES SHE WAS SEEING THEM FOR. PER OLD RECORDS, PT HAS STATED SHE HAS ANXIETY/DEPRESSION/BIPOLAR/ADD-ADHD PT STATES SHE DID HAVE INPATIENT TREATMENT FOR ALCOHOL ABUSE BUT WAS > 5 YEARS AGO. PCP: [facility] Allergies and Home Medications Allergies Coded Allergies: acetaminophen (Verified Allergy, Unknown, 07/14/15) codeine (Verified Allergy, Unknown, 07/14/15) hydrocodone (Verified Allergy, Unknown, 07/14/15) oxycodone (Verified Allergy, Unknown, 07/14/15) propoxyphene (Verified Allergy, Unknown, 07/14/15) Home Medications Cephalexin 500 Mg Capsule, 500 MG PO Q6H Prescribed by: EVITA SLATER on 11/13/17 1139 Ondansetron 8 Mg Tab.rapdis, 8 MG PO Q6H PRN for NAUSEA/VOMITING-1ST LINE Prescribed by: EVITA SLATER on 11/13/17 1139 Patient Home Medication List Home Medication List Reviewed: Yes Constitutional: no symptoms reported Respiratory: no symptoms reported Cardiovascular: no symptoms reported Gastrointestinal: no symptoms reported Genitourinary: no symptoms reported : No Control/STD Prophylaxis: Other (HYST) Musculoskeletal: no symptoms reported Skin: no symptoms reported Psychiatric/Neurological: See HPI Past Yyisjsy-Gpatxh-Xpxzln Hx Patient Social History Alcohol Use: Regular Use (VERY HEAVY AT TIMES) Alcohol Beverage of Choice: Vodka Recreational Drug Use: Yes (COCAINE, ECSTASY. DENIES IV USE) Drug of Choice: COCAINE, ECSTASY. DENIES IV USE Smoking Status: Current Everyday Smoker (1 PPD) Type Used: Cigarettes (1 PPD) Recent Foreign Travel: No Contact w/Someone Who Travel: No Recent Infectious Disease Expo: No Recent Hopitalizations: No Physical Abuse: No Sexual Abuse: No Mistreated: No Fear: No Immunizations Up To Date Date of Influenza Vaccine: Aug 24, 2014 Seasonal Allergies Seasonal Allergies: Yes Past Medical History Surgeries: Yes (HYST/OVARIES INTACT; RECTAL SURGERY-ANAL POLYPECTOMY/ COLONOSCOPY; BREAST AUGMENTATION; ) Breast, Section, Gallbladder, 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, Rectal Respiratory: No Cardiac: No Neurological: No : No 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 0.0oz. 49.039725ts; 20.77 BMI Method:Estimated General Appearance: WD/WN, no apparent distress, other (SPEECH CLEAR. DOES NOT APPEAR INTOXICATED. APPEARS SLIGHTLY SLEEPY BUT ABLE TO CARRY ON FULL CONVERSATION. OCCASIONALLY "SOBS" BUT NO TEARS. 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, no motor/sensory deficits, alert, normal mood/affect, oriented x 3 Appearance/Memory: no memory impairment Behavior/Eye Contact: cooperative, good eye contact, normal speech Thoughts/Hallucinations: no apparent hallucination Skin: normal color, warm/dry Progress/Results/Core Measures Results/Orders Lab Results Laboratory Tests Test 06/28/18 22:25 06/28/18 22:55 Range/Units White Blood Count 5.3 4.3-11.0 10^3/uL Red Blood Count 4.56 4.35-5.85 10^6/uL Hemoglobin 14.5 11.5-16.0 G/DL Hematocrit 41 35-52 % Mean Corpuscular Volume 89 80-99 FL Mean Corpuscular Hemoglobin 32 25-34 PG Mean Corpuscular Hemoglobin Concent 36 32-36 G/DL Red Cell Distribution Width 14.0 10.0-14.5 % Platelet Count 209 130-400 10^3/uL Mean Platelet Volume 8.8 7.4-10.4 FL Neutrophils (%) (Auto) 45 42-75 % Lymphocytes (%) (Auto) 43 12-44 % Monocytes (%) (Auto) 11 0-12 % Eosinophils (%) (Auto) 1 0-10 % Basophils (%) (Auto) 1 0-10 % Neutrophils # (Auto) 2.4 1.8-7.8 X 10^3 Lymphocytes # (Auto) 2.3 1.0-4.0 X 10^3 Monocytes # (Auto) 0.6 0.0-1.0 X 10^3 Eosinophils # (Auto) 0.0 0.0-0.3 10^3/uL Basophils # (Auto) 0.0 0.0-0.1 10^3/uL Sodium Level 139 135-145 MMOL/L Potassium Level 3.7 3.6-5.0 MMOL/L Chloride Level 105 98-107 MMOL/L Carbon Dioxide Level 22 21-32 MMOL/L Anion Gap 12 5-14 MMOL/L Blood Urea Nitrogen 11 7-18 MG/DL Creatinine 0.68 0.60-1.30 MG/DL Estimat Glomerular Filtration Rate > 60 BUN/Creatinine Ratio 16 Glucose Level 99 70-105 MG/DL Calcium Level 8.8 8.5-10.1 MG/DL Total Bilirubin 0.3 0.1-1.0 MG/DL Aspartate Amino Transf (AST/SGOT) 88 H 5-34 U/L Alanine Aminotransferase (ALT/SGPT) 59 H 0-55 U/L Alkaline Phosphatase 115 40-136 U/L Total Protein 6.8 6.4-8.2 GM/DL Albumin 4.2 3.2-4.5 GM/DL TSH [place] Testing 1.00 0.35-4.94 UIU/ML Serum Test, Qualitative NEGATIVE NEGATIVE Salicylates Level < 5.0 L 5.0-20.0 MG/DL Acetaminophen Level < 10 L 10-30 UG/ML Serum Alcohol 253 H <10 MG/DL Urine Color YELLOW Urine Clarity CLEAR Urine pH 7 5-9 Urine Specific [place] 1.010 L 1.016-1.022 Urine Protein 2+ H NEGATIVE Urine Glucose (UA) NEGATIVE NEGATIVE Urine Ketones NEGATIVE NEGATIVE Urine Nitrite NEGATIVE NEGATIVE Urine Bilirubin NEGATIVE NEGATIVE Urine Urobilinogen NORMAL NORMAL MG/DL Urine Leukocyte Esterase 1+ H NEGATIVE Urine RBC (Auto) 2+ H NEGATIVE Urine RBC 5-10 H /HPF Urine WBC 2-5 /HPF Urine Squamous Epithelial Cells 2-5 /HPF Urine Crystals NONE /LPF Urine Bacteria NONE /HPF Urine Casts NONE /LPF Urine Mucus SMALL H /LPF Urine Culture Indicated NO Urine Opiates Screen NEGATIVE NEGATIVE Urine Oxycodone Screen NEGATIVE NEGATIVE Urine Methadone Screen NEGATIVE NEGATIVE Urine Propoxyphene Screen NEGATIVE NEGATIVE Urine Barbiturates Screen NEGATIVE NEGATIVE Ur Tricyclic Antidepressants Screen NEGATIVE NEGATIVE Urine Phencyclidine Screen NEGATIVE NEGATIVE Urine Amphetamines Screen NEGATIVE NEGATIVE Urine Methamphetamines Screen NEGATIVE NEGATIVE Urine Benzodiazepines Screen NEGATIVE NEGATIVE Urine Cocaine Screen NEGATIVE NEGATIVE Urine Cannabinoids Screen NEGATIVE NEGATIVE My Orders Orders - RALPH CASTRO DO Ua Culture If Indicated (06/28/18 22:07) Thyroid Analyzer (06/28/18 22:07) Drug Screen Stat (Urine) (06/28/18 22:07) Cbc With Automated Diff (06/28/18 22:07) Comprehensive Metabolic Panel (06/28/18 22:07) Alcohol (06/28/18 22:07) Acetaminophen (06/28/18 22:07) Salicylate (06/28/18 22:07) Ekg Tracing (06/28/18 22:07) Monitor-Rhythm Ecg Trace Only (06/28/18 22:07) Saline Lock/Iv-Start (06/28/18 22:07) Lactated Ringers (Lr 1000 Ml Iv Solution (06/28/18 22:07) Hcg,Qualitative Serum (06/28/18 22:07) Medications Given in ED Current Medications Medications Dose Ordered Sig/Es Route Start Time Stop Time Status Last Admin Dose Admin Lactated Ringer's 1,000 ml @ 0 mls/hr Q0M ONCE IV 06/28/18 22:07 06/28/18 22:09 DC 06/28/18 22:33 0 MLS/HR Vital Signs/I&O 06/28/18 22:34 Temp 98.9 Pulse 95 Resp 20 B/P (MAP) 131/87 (102) Pulse Ox 97 O2 Delivery Room Air Blood Pressure Mean: 102 Progress Progress Note : Progress Note UNEVENTFUL ER STAY Initial ECG Impression Date: Jun 28, 2018 Initial ECG Impression Time: 22:26 Initial ECG Rate: 91 Initial ECG Rhythm: Normal Sinus Initial ECG Comparisson: No Previous ECG Available Departure Communication (Admissions) 2008--SPOKE WITH 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 ACCEPTS PT FOR ADMIT Impression Primary Impression: Alcohol intoxication in active alcoholic Disposition: 09 ADMITTED INPATIENT Condition: Stable Admissions Decision to Admit Reason: Admit from ER (General) Decision to Admit/Date: Jun 28, 2018 Time/Decision to Admit Time: 23:15 Departure-Patient Inst. Referrals: [facility] (PCP/Family) Primary Care Physician RALPH CASTRO DO Jun 28, 2018 23:01
[2018-06-28 23:10] LABS: BILIRUBIN,URINE NEGATIVE (NEGATIVE); CLARITY,URINE CLEAR; COLOR,URINE YELLOW; GLUCOSE, URINE (UA) NEGATIVE (NEGATIVE); KETONES,URINE NEGATIVE (NEGATIVE); LEUKOCYTE ESTERASE ,URINE 1+ (NEGATIVE); NITRITE,URINE NEGATIVE (NEGATIVE); PH,URINE 7 (5-9); PROTEIN,URINE 2+ (NEGATIVE); UROBILINOGEN,URINE NORMAL (NORMAL)
[2018-06-28 23:25] LABS: AMPHETAMINE SCREEN, URINE NEGATIVE (NEGATIVE); BARBITURATE SCREEN URINE NEGATIVE (NEGATIVE); BENZODIAZEPINES SCREEN URINE NEGATIVE (NEGATIVE); CANNABINOID SCREEN, URINE NEGATIVE (NEGATIVE); COCAINE SCREEN URINE NEGATIVE (NEGATIVE); METHADONE STAT NEGATIVE (NEGATIVE); METHAMPHETAMINE SCREEN URINE S NEGATIVE (NEGATIVE); OPIATE SCREEN URINE NEGATIVE (NEGATIVE); OXYCODONE STAT NEGATIVE (NEGATIVE); PROPOXYPHENE STAT NEGATIVE (NEGATIVE); TRICYCLIC ANTIDEPRESSANTS SCRE NEGATIVE (NEGATIVE)
[2018-06-28 23:30] VITALS: BP 127/81
[2018-06-29] VITALS (19 sets, daily range): BP systolic 119–162; BP diastolic 81–106
[2018-06-29] MEDS: D5 1/2 NS W/KCL 20 MEQ/L 1,000 ML IV SCH ×2 (01:56→08:48)
[2018-06-29] MEDS ORDERED: 1/2 NS IV SOLUTION 1,000 ML IV PRN (03:02)
[2018-06-29] MEDS: THIAMINE INJECTION 100 MG, FOLIC ACID INJECTION 1 MG, MAGNESIUM SULFATE 2 GM, VITAMIN M... IV SCH ×10 (03:09→08:48)
[2018-06-29 03:14] LABS: BASOPHILS % (AUTO) 0 % (0-10); EOSINOPHILS # (AUTO) 0.1 10^3/uL (0.0-0.3); EOSINOPHILS % (AUTO) 1 % (0-10); HEMATOCRIT 39 % (35-52); HEMOGLOBIN 13.6 G/DL (11.5-16.0); LYMPHOCYTES # (AUTO) 2.9 X 10^3 (1.0-4.0); LYMPHOCYTES % (AUTO) 54 % (12-44); MEAN CORPUSCULAR HEMOGLOBIN 31 PG (25-34); MEAN CORPUSCULAR HGB CONC 35 G/DL (32-36); MEAN CORPUSCULAR VOLUME 90 FL (80-99); MEAN PLATELET VOLUME 9.1 FL (7.4-10.4); MONOCYTES # (AUTO) 0.5 X 10^3 (0.0-1.0); MONOCYTES % (AUTO) 9 % (0-12); NEUTROPHILS # (AUTO) 1.9 X 10^3 (1.8-7.8); NEUTROPHILS % (AUTO) 35 % (42-75); PLATELET COUNT 193 10^3/uL (130-400); RED BLOOD COUNT 4.39 10^6/uL (4.35-5.85); RED CELL DISTRIBUTION WIDTH 13.9 % (10.0-14.5); WHITE BLOOD COUNT 5.3 10^3/uL (4.3-11.0)
[2018-06-29] MEDS ORDERED: ANTACID SUSP 30 ML UDC (MYLANTA) PO PRN (03:15)
[2018-06-29] MEDS ORDERED: LORazepam 1 MG (ATIVAN) TAB PO PRN (03:15)
[2018-06-29] MEDS ORDERED: ONDANSETRON 4 MG/2 ML (SDV) Z0FRAN IV PRN (03:15)
[2018-06-29] MEDS ORDERED: D5 1/2 NS 1000 ML IV SOLUTION 1,000 ML IV PRN (03:15)
[2018-06-29] MEDS ORDERED: SENNA W/DOCUSATE (SENOKOT S) TABLET PO PRN (03:15)
[2018-06-29] MEDS ORDERED: LORazepam INJ 2 MG/ML (ATIVAN) VIAL IV PRN (03:15)
[2018-06-29] MEDS ORDERED: ONDANSETRON 4 MG (ZOFRAN) ORAL DISSOLVE TAB SL PRN (03:15)
[2018-06-29] MEDS ORDERED: LORazepam INJ 2 MG/ML (ATIVAN) VIAL IM/IV PRN (03:15)
[2018-06-29 03:24] LABS: INR 1.1 (0.8-1.4); PROTHROMBIN TIME PATIENT 14.6 SEC (12.2-14.7)
[2018-06-29 03:31] LABS: ALANINE AMINOTRANSFERASE 53 U/L (0-55); ALBUMIN 3.7 GM/DL (3.2-4.5); ALKALINE PHOSPHATASE 95 U/L (40-136); BILIRUBIN,TOTAL 0.4 MG/DL (0.1-1.0); BUN/CREATININE RATIO 13; CALCIUM 8.4 MG/DL (8.5-10.1); CARBON DIOXIDE 24 MMOL/L (21-32); CHLORIDE 105 MMOL/L (98-107); CREATININE SERUM 0.62 MG/DL (0.60-1.30); GFR ESTIMATED > 60; GLUCOSE 95 MG/DL (70-105); MAGNESIUM 1.9 MG/DL (1.8-2.4); PHOSPHORUS 3.2 MG/DL (2.3-4.7); POTASSIUM 3.7 MMOL/L (3.6-5.0); SODIUM 139 MMOL/L (135-145); TOTAL PROTEIN 5.8 GM/DL (6.4-8.2)
[2018-06-29] MEDS ORDERED: MAGNESIUM 1 GM/100 ML IVPB 100 ML IV SCH (06:00)
[2018-06-29] MEDS ORDERED: KCL 20 MEQ TAB (K-DUR) PO SCH (06:00)
[2018-06-29] MEDS ORDERED: POTASSIUM CL 10MEQ/50ML IVPB 50 ML IV SCH (06:00)
[2018-06-29] MEDS ORDERED: MULT-609 PO (10:56)
[2018-06-29] MEDS ORDERED: NF-VYVAN20 PO (10:56)
[2018-06-29] MEDS ORDERED: LACT70CA PO (10:56)
--- NOTE | 2018-06-29 11:08 | Short Stay Summary ---
History of Present Illness History of Present Illness Reason for visit/HPI Pt was brought in to ED last night via EMS with report of "drinking a lot of alcohol. Reportedly was drinking vodka and wine. Per her report, she had about 5-6 mini bottles of vodka today and 1-2 bottles of wine. She has a long history of alcohol abuse and intoxication, but stated she had never "done anything like this before". She admits to drinking several times per week, with chart review reflecting multiple documentations of daily drinking of vodka and wine. She denies history of alcohol withdrawal seizures, but does report feeling like the had the shakes yesterday, and those went away when she went out for more alcohol and started drinking again. She reported to the ED physician that she was in a bad relationship and that she had her now ex- boyfriend broke up about two weeks ago. She did get a job a few months ago, but due to her drinking, did not show up for work one day last week. She reports that she called the [facility] at home and they encouraged her to go to the hospital for evaluation. she has been admitted once for inpatient rehab for alcohol abuse. She denies suicidal thoughts or plans, also denies plans to harm herself or others. Reports that she wants inpatient treatment to help with her drinking, and she is ready to quit. Per review of clinic records, pt's PCP is Eric ESQUIVEL, who she last saw on 05/22/18. Her current prescribed medications are a multivitamin daily, probiotics daily as needed and Vyvanse 20 mg PO daily which was filled at her last visit for ADHD. The patient reported that she had recently had a relapse with her drinking, which mostly happened around her (now ex) boyfriend, as "all he does is drink". She has tried ATC treatment at [facility], but did not feel that it was working for her, and declined to go back when it was offered. Date of Admission Jun 28, 2018 at 23:15 Date of Discharge 06/29/2018 Time Seen by Provider: 11:00 Attending Physician Sandy Witt DO Admitting Physician Dat Rocha MD Consult Allergies and Home Medications Allergies Coded Allergies: acetaminophen (Verified Allergy, Unknown, 07/14/15) codeine (Verified Allergy, Unknown, 07/14/15) hydrocodone (Verified Allergy, Unknown, 07/14/15) oxycodone (Verified Allergy, Unknown, 07/14/15) propoxyphene (Verified Allergy, Unknown, 07/14/15) Home Medications Lactobac No.41/Bifidobact No.7 70 Mg Capsule, 70 MG PO DAILY PRN, (Reported) Lorazepam 0.5 Mg Tablet, 0.5 MG PO Q6H PRN for ANXIETY Prescribed by: SANDY WITT on 06/29/18 1212 Multivitamin 1 Each Tablet, 1 EACH PO DAILY, (Reported) Patient Home Medication List Home Medication List Reviewed: Yes Past Dmeltii-Bjbvik-Jpwaay Hx Patient Social History Marrital Status: Number of Children: 2 Number of living children: 2 Living Status: lives with children in [place] Employed/Student: employed Alcohol Use: Regular Use (heavy daily use) Alcohol Beverage of Choice: Wine, Vodka Recreational Drug Use: Yes (COCAINE, ECSTASY. DENIES IV USE) Drug of Choice: COCAINE, ECSTASY. DENIES IV USE Smoking Status: Current Everyday Smoker Cigaretts per day: 20 Type Used: Cigarettes Physical Abuse Screen: No Sexual Abuse: No Recent Foreign Travel: No Contact w/other who traveled: No Recent Hopitalizations: No Recent Infectious Disease Expo: No Immunizations Up To Date Tetanus Booster (TDap): More than 5yrs (05/19/2012) Date of Influenza Vaccine: Aug 29, 2017 Seasonal Allergies Seasonal Allergies: Yes Surgeries Yes (bladder stretch - Karthikeyan, 08/21/17) Breast (augmentation), Section, Eye Surgery (Lasik 2013), Gallbladder, 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 (partial, due to endometriosis - 2011), Orthopedic (Right index tendon repair - 01/2018), Rectal Respiratory No Currently Using CPAP: No Currently Using BIPAP: No Cardiovascular No Neurological No Reproductive System : No Hx Reproductive Disorders: No Sexually Transmitted Disease: No Female Reproductive Disorders: Endometriosis 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 Genitourinary No Gastrointestinal Yes (ANAL POLYPECTOMY; DIVERTICULOSIS NOTED ON COLONOSCOPY) Diverticulosis, Polyps Musculoskeletal No Endocrine History of Endocrine Disorders: No HEENT History of HEENT Disorders: No Loss of Vision: Denies (s/p Lasik) Hearing Impairment: Denies Cancer No Psychosocial History of Psychiatric Problem: Yes (Polysubstance Abuse - Cocaine, Ectasy; denies IV abuse; Heavy Alcohol Abuse) Behavioral Health Disorders: ADD/ADHD, Anxiety, PTSD (from [place]alle) , Bipolar, Depression Integumentary History of Skin or Integumenta: No Blood Transfusions History of Blood Disorders: No Adverse Reaction to a Blood Tr: No Reviewed Nursing Assessment Reviewed/Agree w Nursing PMH: Yes Family Medical History Significant Family History: CAD Over 55 Years Old (Father at age 82 with heart disease and diabetes; Mother alive with high cholesterol), Diabetes ( Father - at age 82) Family Hx: Patient reports no known family medical history. Constitutional: see HPI EENTM: no symptoms reported Respiratory: no symptoms reported Cardiovascular: no symptoms reported Gastrointestinal: no symptoms reported Genitourinary: no symptoms reported : No Control/STD Prophylaxis: Other (partial hysterectomy) Musculoskeletal: no symptoms reported Skin: no symptoms reported Psychiatric/Neurological: See HPI Physical Exam Vital Signs Vital Signs - First Documented 06/28/18 22:34 Temp 98.9 Pulse 95 Resp 20 B/P (MAP) 131/87 (102) Pulse Ox 97 O2 Delivery Room Air Capillary Refill : Less Than 3 Seconds Height, Weight, BMI Height: 5'3.00" Weight: 108lbs. 0.0oz. 48.988948zd; 19.1 BMI Method:Estimated General Appearance: No Apparent Distress, WD/WN, Anxious Eyes: Bilateral Eye Normal Inspection, Bilateral Eye EOMI HEENT: Normal ENT Inspection, Moist Mucous Membranes; No Photophobia, No Scleral Icterus (L), No Scleral Icterus (R) Neck: Full Range of Motion, Normal Inspection, Non Tender, Supple Respiratory: Chest Non Tender, Normal Breath Sounds, No Accessory Muscle Use, No Respiratory Distress Cardiovascular: Regular Rate, Rhythm, No Edema, No Gallop, Normal Peripheral Pulses Gastrointestinal: Normal Bowel Sounds, No Organomegaly, No Pulsatile Mass, Non Tender, Soft Rectal: Deferred Back: Normal Inspection, No CVA Tenderness, No Vertebral Tenderness Extremity: Normal Capillary Refill, Normal Inspection, Normal Range of Motion, Non Tender, No Calf Tenderness Neurologic/Psychiatric: Alert, Oriented x3, No Motor/Sensory Deficits, Normal 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, 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 Her labs and vital signs were stable. Her blood alcohol dropped from a high of 253 on arrival at 2225 last night to 27 this morning at 0830. She continues to deny any thoughts of harming herself or others, and expresses desire to be placed in an inpatient detox facility. Moni's hospital record and labs were reviewed, as well as her clinic record from her most recent visit. She was examined and is found to be medically stable. She is on CIWA protocol, with her highest score being 4, at 0030 just after arriving in the ICU, 1 at 0100, and has scored 0 ever since. She does have a mild tremor, but the patient states that is present all the time, not just when she is not drinking. From a medical standpoint she is stable, and she consistently denies thoughts of self harm or harm to others, and she is ready for transfer to an inpatient alcohol treatment facility as soon as there is a bed available. supervisor volunteer services has been contacted and is looking for placement for her at the time of exam. Conclusion Labs Laboratory Tests 06/28/18 22:25: White Blood Count 5.3, Red Blood Count 4.56, Hemoglobin 14.5, Hematocrit 41, Mean Corpuscular Volume 89, Mean Corpuscular Hemoglobin 32, Mean Corpuscular Hemoglobin Concent 36, Red Cell Distribution Width 14.0, Platelet Count 209, Mean Platelet Volume 8.8, Neutrophils (%) (Auto) 45, Lymphocytes (%) (Auto) 43, Monocytes (%) (Auto) 11, Eosinophils (%) (Auto) 1, Basophils (%) (Auto) 1, Neutrophils # (Auto) 2.4, Lymphocytes # (Auto) 2.3, Monocytes # (Auto) 0.6, Eosinophils # (Auto) 0.0, Basophils # (Auto) 0.0, Sodium Level 139, Potassium Level 3.7, Chloride Level 105, Carbon Dioxide Level 22, Anion Gap 12, Blood Urea Nitrogen 11, Creatinine 0.68, Estimat Glomerular Filtration Rate > 60, BUN/ Creatinine Ratio 16, Glucose Level 99, Calcium Level 8.8, Total Bilirubin 0.3, Aspartate Amino Transf (AST/SGOT) 88H, Alanine Aminotransferase (ALT/SGPT) 59H, Alkaline Phosphatase 115, Total Protein 6.8, Albumin 4.2, TSH [place] Testing 1.00, Serum Test, Qualitative NEGATIVE, Salicylates Level < 5.0L, Acetaminophen Level < 10L, Serum Alcohol 253H 06/28/18 22:55: Urine Color YELLOW, Urine Clarity CLEAR, Urine pH 7, Urine Specific [place] 1.010L, Urine Protein 2+H, Urine Glucose (UA) NEGATIVE, Urine Ketones NEGATIVE, Urine Nitrite NEGATIVE, Urine Bilirubin NEGATIVE, Urine Urobilinogen NORMAL, Urine Leukocyte Esterase 1+H, Urine RBC (Auto) 2+H, Urine RBC 5-10H, Urine WBC 2 -5, Urine Squamous Epithelial Cells 2-5, Urine Crystals NONE, Urine Bacteria NONE, Urine Casts NONE, Urine Mucus SMALLH, Urine Culture Indicated NO, Urine Opiates Screen NEGATIVE, Urine Oxycodone Screen NEGATIVE, Urine Methadone Screen NEGATIVE, Urine Propoxyphene Screen NEGATIVE, Urine Barbiturates Screen NEGATIVE, Ur Tricyclic Antidepressants Screen NEGATIVE, Urine Phencyclidine Screen NEGATIVE, Urine Amphetamines Screen NEGATIVE, Urine Methamphetamines Screen NEGATIVE, Urine Benzodiazepines Screen NEGATIVE, Urine Cocaine Screen NEGATIVE, Urine Cannabinoids Screen NEGATIVE 06/29/18 02:45: White Blood Count 5.3, Red Blood Count 4.39, Hemoglobin 13.6, Hematocrit 39, Mean Corpuscular Volume 90, Mean Corpuscular Hemoglobin 31, Mean Corpuscular Hemoglobin Concent 35, Red Cell Distribution Width 13.9, Platelet Count 193, Mean Platelet Volume 9.1, Neutrophils (%) (Auto) 35L, Lymphocytes (%) (Auto) 54H , Monocytes (%) (Auto) 9, Eosinophils (%) (Auto) 1, Basophils (%) (Auto) 0, Neutrophils # (Auto) 1.9, Lymphocytes # (Auto) 2.9, Monocytes # (Auto) 0.5, Eosinophils # (Auto) 0.1, Basophils # (Auto) 0.0, Sodium Level 139, Potassium Level 3.7, Chloride Level 105, Carbon Dioxide Level 24, Anion Gap 10, Blood Urea Nitrogen 8, Creatinine 0.62, Estimat Glomerular Filtration Rate > 60, BUN/ Creatinine Ratio 13, Glucose Level 95, Calcium Level 8.4L, Total Bilirubin 0.4, Aspartate Amino Transf (AST/SGOT) 73H, Alanine Aminotransferase (ALT/SGPT) 53, Alkaline Phosphatase 95, Total Protein 5.8L, Albumin 3.7, Prothrombin Time 14.6 , INR Comment 1.1, Activated Partial Thromboplast Time 28, Phosphorus Level 3.2 , Magnesium Level 1.9 06/29/18 08:30: Serum Alcohol 27H Conclusion/Plan The patient will be discharged to home today with an appointment with behavioral health at [facility] for intake at 1630. She is then to go to [facility] in the morning for admission to their 30 day inpatient detox program. The patient has a 9 year old autistic son and she is nervous about being away form him for so long; discussed at length that she has attempted outpatient treatment for her alcohol abuse in the past and it has not worked. She and her son live with her mother, who will be able to provide care for her son while she is in rehab. The patient states her mother has removed all the alcohol from her home. She continues to deny any thoughts of self harm or suicidal ideation. She is quite anxious appearing, and reports that she wants to have her Vyvanse discontinued, she does not think she needs it, and she does not want to take that medication any longer; it has been discontinued on her medication discharge paperwork and her clinic records have been updated. The patient has been prescribed ativan 0.5 mg PO Q6H PRN anxiety #4 to use as prescribed until she enters rehab Friday. She plans to continue to follow with Eric Rojas APRN after discharge. Time was also spent discussing that pt will need to continue to see someone for alcohol abstinence after discharge from [facility], either through [facility] or another program. The patient did have mild elevation of her liver enzymes (AST 88 --> 73, ALT 59 --> 53) while hospitalized, and these need to be rechecked after discharge from [facility]. Her other labs are WNL and not concerning. Copy Copies To 1: [facility]/SANDY DAVID DO Jun 29, 2018 11:08
[2018-06-29] MEDS ORDERED: LORA-404 PO (12:12)
--- NOTE | 2018-06-29 12:15 | Discharge Instructions ---
Discharge Inst-[facility] Discharge Medications New, Converted or Re-Newed RX: RX on Chart New Medications: Lorazepam (Ativan) 0.5 Mg Tablet 0.5 MG PO Q6H PRN for ANXIETY for 1 Day, #4 TAB 0 Refills Continued Medications: Lactobac No.41/Bifidobact No.7 (Probiotic-10 3 Billion Cell Cp) 70 Mg Capsule 70 MG PO DAILY PRN, CAP Multivitamin (Jji-Panktf-Xvspz) 1 Each Tablet 1 EACH PO DAILY, TAB Discontinued Medications: Lisdexamfetamine Dimesylate (Vyvanse) 20 Mg Capsule 20 MG PO DAILY, CAP Patient Instructions Patient Instructions -keep appt for intake with [facility] today at 4:30 pm -keep appt with [facility] in [place] for tomorrow morning -avoid all alcohol -take prescribed medication for anxiety only if needed and follow directions on bottle; it is only meant for use until you are admitted to [facility] tomorrow morning -follow up with PCP Eric ESQUIVEL after discharge from [facility] Goal/Follow Up Appt: Behavioral Health Intake Screening today at 4:30 PM Return to The Hospital For: chest pain or pressure, shortness of breath not relieved by rest, nausea or vomiting that lasts longer than 24 hours and makes you unable to keep down ice chips or clear liquids, fever >101 not improved with tylenol, severe pain not improved by normal measures, if directed by airport operations duty manager provider, or with any other emergent complaints or concerns Activity & Diet Discharge Diet: No Restrictions Activity as Tolerated: Yes Copy Copies To 1: [facility]/FERMIN DAVID DO Jun 29, 2018 12:15
[2018-06-30] MEDS ORDERED: MULTIVIT W/MINERALS TAB (THERAGRAN M) PO SCH (07:00)
== END 2018-06-29 12:12 | disposition home or self-care (01) ==
LOC: EDUNIT# 22:04 → ER 22:04 → UNDOADMOB 23:15 → ICU 23:15 → UNDODISOB 06-29 12:25
PROVIDERS: ADMIT Family Medicine; ATTEND Family Medicine
DX: F10.129 Alcohol abuse with intoxication, unspecified (principal); Y90.8 Blood alcohol level of 240 mg/100 ml or more; F17.210 Nicotine dependence, cigarettes, uncomplicated; R74.8 Abnormal levels of other serum enzymes; F90.9 Attention-deficit hyperactivity disorder, unspecified type; Z79.899 Other long term (current) drug therapy
CPT/HCPCS: 36415; 80053; 80306; 80320; 80329; 81000; 83735; 84100; 84443; 84703; 85025; 85610; 85730; 87081; 93005; 93041; 96360; G0378

== ENCOUNTER → 2019-02-01 | Outpatient (CLI) | payer MEDICAID ==
[~2019-02-01] MED LIST changes: +LACT70CA PO; +LORA-404 PO; +MULT-609 PO; +NF-VYVAN20 PO
--- NOTE | 2019-02-01 13:40 | Diagnostic Imaging Report ---
INDICATION: Routine screening. COMPARISON: 04/20/2013 and 04/17/2012. TECHNIQUE: 2D and 3D bilateral screening mammography was performed with CAD. FINDINGS: Bilateral subpectoral breast implants are again noted. The implant contours appear stable. Both breasts demonstrate a heterogeneously dense parenchymal pattern, limiting the sensitivity of mammography. The parenchymal pattern is stable. No mass or malignant appearing microcalcifications are seen. The axillae are unremarkable. IMPRESSION: No mammographic features suspicious for malignancy are identified. ACR BI-RADS Category 2: Benign findings. Result letter will be mailed to the patient. Note: At least 10% of breast cancer is not imaged by mammography. Dictated by: Dictated on workstation # [id number]
== END ==
LOC: RAD 11:26
PROVIDERS: ATTEND Nurse Practitioner Primary Care
DX: Z12.31 Encounter for screening mammogram for malignant neoplasm of breast (principal)
CPT/HCPCS: 77067

== ENCOUNTER 2019-03-19 11:53 | Emergency (ER) | payer MEDICAID ==
[~2019-03-19] VITALS: Ht 160 cm; Wt 52.2 kg
[2019-03-19] MEDS ORDERED: NS IV 1000 ML 1,000 ML IV ONE (12:02)
[2019-03-19] MEDS ORDERED: ONDANSETRON 4 MG/2 ML (SDV) Z0FRAN IVP ONE (12:15)
[2019-03-19] MEDS ORDERED: LORazepam INJ 2 MG/ML (ATIVAN) VIAL IVP ONE ×2 (12:15→12:45)
[2019-03-19] MEDS ORDERED: FAMOTIDINE 20MG/2ML IV (PEPCID) IVP ONE (12:15)
[2019-03-19 12:21] LABS: BASOPHILS % (AUTO) 0 % (0-10); EOSINOPHILS % (AUTO) 0 % (0-10); HEMATOCRIT 45 % (35-52); HEMOGLOBIN 15.8 G/DL (11.5-16.0); LYMPHOCYTES # (AUTO) 1.6 X 10^3 (1.0-4.0); LYMPHOCYTES % (AUTO) 17 % (12-44); MEAN CORPUSCULAR HEMOGLOBIN 31 PG (25-34); MEAN CORPUSCULAR HGB CONC 35 G/DL (32-36); MEAN CORPUSCULAR VOLUME 88 FL (80-99); MEAN PLATELET VOLUME 9.1 FL (7.4-10.4); MONOCYTES # (AUTO) 0.4 X 10^3 (0.0-1.0); MONOCYTES % (AUTO) 4 % (0-12); NEUTROPHILS # (AUTO) 7.7 X 10^3 (1.8-7.8); NEUTROPHILS % (AUTO) 79 % (42-75); PLATELET COUNT 249 10^3/uL (130-400); RED CELL DISTRIBUTION WIDTH 13.3 % (10.0-14.5); WHITE BLOOD COUNT 9.8 10^3/uL (4.3-11.0)
[2019-03-19 12:39] LABS: ALANINE AMINOTRANSFERASE 84 U/L (0-55); ALBUMIN 4.5 GM/DL (3.2-4.5); ALKALINE PHOSPHATASE 127 U/L (40-136); BILIRUBIN,TOTAL 1.1 MG/DL (0.1-1.0); BUN/CREATININE RATIO 22; CALCIUM 9.5 MG/DL (8.5-10.1); CARBON DIOXIDE 20 MMOL/L (21-32); CHLORIDE 103 MMOL/L (98-107); CREATININE SERUM 0.72 MG/DL (0.60-1.30); GFR ESTIMATED > 60; GLUCOSE 100 MG/DL (70-105); LIPASE 29 U/L (8-78); POTASSIUM 3.9 MMOL/L (3.6-5.0); SALICYLATE < 5.0 MG/DL (5.0-20.0); SODIUM 138 MMOL/L (135-145); TOTAL PROTEIN 7.3 GM/DL (6.4-8.2)
[2019-03-19 12:43] LABS: ACETAMINOPHEN < 10 UG/ML (10-30)
[2019-03-19] MEDS ORDERED: ATOR10TA66 (12:44)
[2019-03-19] MEDS ORDERED: CYCL10TA9 (12:44)
--- NOTE | 2019-03-19 12:59 | NUR ---
TO BATHROOM PER W/C
[2019-03-19 13:04] LABS: TSH (THYROID ANALYZER) 0.66 UIU/ML (0.35-4.94)
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
--- NOTE | 2019-03-19 13:18 | NUR ---
UA SENT TO LAB LAB CALLED NOT ENOUGH URINE SENT.
[2019-03-19 13:35] LABS: AMPHETAMINE SCREEN, URINE NEGATIVE (NEGATIVE); BARBITURATE SCREEN URINE NEGATIVE (NEGATIVE); BENZODIAZEPINES SCREEN URINE NEGATIVE (NEGATIVE); CANNABINOID SCREEN, URINE NEGATIVE (NEGATIVE); COCAINE SCREEN URINE NEGATIVE (NEGATIVE); METHADONE STAT NEGATIVE (NEGATIVE); METHAMPHETAMINE SCREEN URINE S NEGATIVE (NEGATIVE); OPIATE SCREEN URINE NEGATIVE (NEGATIVE); OXYCODONE STAT NEGATIVE (NEGATIVE); PROPOXYPHENE STAT NEGATIVE (NEGATIVE); TRICYCLIC ANTIDEPRESSANTS SCRE NEGATIVE (NEGATIVE)
[2019-03-19] MEDS ORDERED: LORA-405 PO (13:37)
[2019-03-19 13:41] VITALS: BP 138/79
[2019-03-19] MEDS ORDERED: ONDA4TAB11 SL (13:45)
[2019-03-19 13:56] VITALS: BP 137/96
== END 2019-03-19 13:56 | disposition home or self-care (01) ==
LOC: EDUNIT# 11:53 → ER 11:54
DX: F10.239 Alcohol dependence with withdrawal, unspecified (principal); F14.10 Cocaine abuse, uncomplicated; F19.10 Other psychoactive substance abuse, uncomplicated; F17.210 Nicotine dependence, cigarettes, uncomplicated; Z88.6 Allergy status to analgesic agent; Z88.5 Allergy status to narcotic agent; Z98.890 Other specified postprocedural states; Z90.710 Acquired absence of both cervix and uterus; Z87.448 Personal history of other diseases of urinary system; Z87.19 Personal history of other diseases of the digestive system; Z82.49 Family history of ischemic heart disease and other diseases of the circulatory system; Z86.010 Personal history of colon polyps; Z88.8 Allergy status to other drugs, medicaments and biological substances
CPT/HCPCS: 36415; 80053; 80306; 80320; 80329; 83690; 83735; 84443; 84484; 85025; 93005; 93041

== ENCOUNTER 2019-07-22 05:32 | Outpatient (CLI) | payer MEDICAID ==
[~2019-07-22] VITALS: Ht 160 cm; Wt 54.9 kg
[~2019-07-22 05:32] MED LIST changes: +ATOR10TA66 PO; +CYCL10TA9; +LORA-405 PO; +ONDA4TAB11 SL
[2019-07-22] MEDS ORDERED: LINA72CA PO (15:24)
[2019-07-22] MEDS ORDERED: VITA1TAB17 PO (15:24)
[2019-07-22] MEDS ORDERED: BUPR150T7 PO (15:24)
[2019-07-22] MEDS ORDERED: LIFI1DRO OU (15:24)
== END 2019-07-22 15:30 | disposition home or self-care (01) ==
LOC: PREOP 05:32
PROVIDERS: ATTEND Obstetrics & Gynecology
DX: Z01.818 Encounter for other preprocedural examination (principal)

== ENCOUNTER 2019-07-30 10:17 | Day surgery (SDC) | payer MEDICAID ==
--- NOTE | 2019-07-29 17:27 | HISTORY AND PHYSICAL ---
DATE OF SERVICE: HISTORY OF PRESENT ILLNESS: The patient is a 48-year-old G2, P2 white female who presented to clinic with complaint of something falling out of her vagina. She was found to have vaginal prolapse with a large cystocele and a larger rectocele. She had a detached and hypermobile urethra and stress urinary incontinence. She had seen Dr. Napier, who was planning a sling procedure for her urinary incontinence and needed to have the balance of the prolapse repaired. She denies vaginal discharge or bleeding. She occasionally has hot flashes. She denies dysuria or dyskinesia. ALLERGIES: CODEINE AND HYDROCODONE, WHICH CAUSE ITCHING. MEDICATIONS: Linzess, Wellbutrin 150 mg a day, atorvastatin, Xiidra eyedrops and a multivitamin. PAST MEDICAL HISTORY: Includes a major depression episode in 09/2018. She has chronic tinnitus. She had a colonoscopy done by Dr. Lang in the remote past. PAST SURGICAL HISTORY: The patient had breast augmentation in 1996. She had a in 2008. She had a tubal sterilization in 2008. She had a hysteroscopy with D and C and endometrial ablation in 2010. She had an LAVH in 2011. She had a gallbladder removed in 2012. She had surgery on an injured finger in 2016. PAST OBSTETRIC HISTORY: Includes a vaginal delivery on 06/23/1998 and a on 05/12/2009. GYNECOLOGIC HISTORY: Includes a menstrual formula of . Contraception is via tubal sterilization and LAVH. FAMILY HISTORY: Negative for breast or SHIPPING LEAD PERSON cancers. Her father has diabetes. She has a brother with heart disease. SOCIAL HISTORY: The patient is , unemployed, smokes 2-3 packs of cigarettes a day. She has a history of alcoholism in the past, but has abstinence currently. She had herpes 4 years ago. REVIEW OF SYSTEMS: As per the HPI. PHYSICAL EXAMINATION: HEENT: Normal. NECK: Supple, with no lymphadenopathy, no thyromegaly. ABDOMEN: Soft, nontender and nondistended. EXTREMITIES: Show no clubbing, cyanosis. There is no Homans sign. PELVIC: Deferred to the operating room. However, in clinic in 06/2019, the patient had a first to degree cystocele, a second-degree plus rectocele, a minimal enterocele, detached and hypermobile urethra and a normal bimanual exam. ASSESSMENT AND PLAN: Vaginal prolapse with stress urinary incontinence. Plan is for admission on 07/30, for a joint procedure with Dr. Napier involving the anterior and posterior vaginal repair with possible SSLS by me and Dr. Napier will be performing a pubovaginal sling and a cystoscopy. Job ID: [id number] DocumentID: [id number] Dictated Date: 07/29/2019 17:02:49 Concrete Bucket Hooker Date: 07/29/2019 17:26:58 Dictated By: TEVIN TITUS MD
[~2019-07-30] VITALS: Ht 162.6 cm; Wt 53.5 kg
[2019-07-30] VITALS (11 sets, daily range): BP systolic 84–119; BP diastolic 48–81
[~2019-07-30 10:17] MED LIST changes: +BUPR150T7 PO; +LIFI1DRO OU; +LINA72CA PO; +VITA1TAB17 PO
[2019-07-30] MEDS ORDERED: ESTRADIOL VAGINAL CREAM 42.5 GM (ESTRACE) VG ONE (10:58)
[2019-07-30] MEDS: LACTATED RINGERS 1,000 ML IV PRN ×2 (11:15→13:20)
[2019-07-30] MEDS ORDERED: ceFAZolin INJECTION 1,000 MG in WATER (STERILE) FOR INJECTION 10 ML IV ONE ×2 (11:15→11:30)
[2019-07-30 11:18] LABS: BASOPHILS % (AUTO) 0 % (0-10); EOSINOPHILS # (AUTO) 0.1 10^3/uL (0.0-0.3); EOSINOPHILS % (AUTO) 2 % (0-10); HEMATOCRIT 45 % (35-52); HEMOGLOBIN 14.9 G/DL (11.5-16.0); LYMPHOCYTES # (AUTO) 2.2 X 10^3 (1.0-4.0); LYMPHOCYTES % (AUTO) 36 % (12-44); MEAN CORPUSCULAR HEMOGLOBIN 30 PG (25-34); MEAN CORPUSCULAR HGB CONC 33 G/DL (32-36); MEAN CORPUSCULAR VOLUME 90 FL (80-99); MEAN PLATELET VOLUME 9.7 FL (7.4-10.4); MONOCYTES # (AUTO) 0.5 X 10^3 (0.0-1.0); MONOCYTES % (AUTO) 8 % (0-12); NEUTROPHILS # (AUTO) 3.2 X 10^3 (1.8-7.8); NEUTROPHILS % (AUTO) 54 % (42-75); PLATELET COUNT 263 10^3/uL (130-400); RED CELL DISTRIBUTION WIDTH 13.4 % (10.0-14.5)
[2019-07-30] MEDS ORDERED: MIDAZOLAM 2 MG/2 ML (VERSED) VIAL ONE (11:20)
[2019-07-30] MEDS ORDERED: LIDOCAINE PF 2% 5 ML (XYLOCAINE) VIAL ONE (11:20)
[2019-07-30] MEDS ORDERED: proPOfol 200 MG/20 ML (DIPRIVAN) VIAL IV ONE (11:20)
[2019-07-30] MEDS ORDERED: SEVOFLURANE (ULTANE) 15 ML INHAL SOLN ONE (11:20)
[2019-07-30] MEDS ORDERED: ONDANSETRON 4 MG/2 ML (SDV) Z0FRAN ONE (11:20)
[2019-07-30] MEDS ORDERED: DEXAMETHASONE 10 MG/ML (DECADRON) 1 ML VIAL ONE (11:20)
[2019-07-30] MEDS ORDERED: fentaNYL INJECTION 100 MCG/2 ML AMP ONE ×2 (11:21→13:23)
[2019-07-30] MEDS ORDERED: L.AC1CAP6 PO (12:16)
--- NOTE | 2019-07-30 12:20 | Progress Note-Post Operative ---
Post-Operative Progess Note Surgeon (s)/Clinical Assoc (s) Surgeon TEVIN TITUS MD Clinical Assoc: Anupama Laureano Pre-Operative Diagnosis Vaginal prolapse/stress urinary incontinence Post-Operative Diagnosis Same Procedure & Operative Findings Date of Procedure 07/30/19 Procedure Performed/Findings Anterior posterior vaginal repairs with enterocele repair and repair of anterior rectal wall perforation with Dr. Park performing a pubovaginal sling and cystoscopy Anesthesia Type GETA Estimated Blood Loss Estimated blood loss (mL): 100 Specimens/Packing Specimens Removed no Packing: Kerlix gauze in the vagina TEVIN TITUS MD Jul 30, 2019 12:20
--- NOTE | 2019-07-30 12:20 | Progress Note-Pre Operative ---
Pre-Operative Progress Note H&P Reviewed The H&P was reviewed, patient examined and no changes noted. Date Seen by Provider: Jul 30, 2019 Time Seen by Provider: 12:19 Date H&P Reviewed: Jul 30, 2019 Time H&P Reviewed: 12:19 Pre-Operative Diagnosis: Vaginal prolapse/stress urinary incontinence TEVIN TITUS MD Jul 30, 2019 12:19
[2019-07-30] MEDS ORDERED: PROMETHAZINE INJ 25 MG/ML (PHENERGAN) AMP IM PRN (12:30)
[2019-07-30] MEDS ORDERED: MEPERIDINE (DEMEROL) INJ 100 MG/ML IM PRN (12:30)
[2019-07-30] MEDS ORDERED: ONDANSETRON 4 MG/2 ML (SDV) Z0FRAN IVP PRN ×2 (12:30→14:00)
[2019-07-30] MEDS ORDERED: BENZOCAINE/MENTHOL (DERMOPLAST) 56 ML CAN TP PRN (12:30)
[2019-07-30] MEDS ORDERED: ESTROGENS CONJ IV 25 MG/5 ML (PREMARIN) VIAL IVP ONE (12:30)
[2019-07-30] MEDS ORDERED: WATER (STERILE) FOR INJ 10 ML BTL INJ ONE (12:30)
--- NOTE | 2019-07-30 12:58 | Progress Note-Post Operative ---
Post-Operative Progess Note Surgeon (s)/Glass Calibrator (s) Surgeon EMEKA VAUGHAN MD Glass Calibrator: TACHO Pre-Operative Diagnosis NATHANAEL Post-Operative Diagnosis SAME Procedure & Operative Findings Date of Procedure 07/30/19 Procedure Performed/Findings PVS AND CYSTOSCOPY Anesthesia Type GENERAL Estimated Blood Loss Estimated blood loss (mL): NEGLIGIBLE Specimens/Packing Specimens Removed NONE Packing: Kerlix gauze in the vagina EMEKA VAUGHAN MD Jul 30, 2019 12:58
[2019-07-30] MEDS ORDERED: morphine INJ 10 MG/ML 1ML (SYR OR VIAL) IVP ONE (14:00)
[2019-07-30] MEDS ORDERED: fentaNYL INJECTION 100 MCG/2 ML AMP IVP ONE (14:00)
[2019-07-30] MEDS ORDERED: KETOROLAC 30 MG/ML VIAL ONE (14:31)
--- NOTE | 2019-07-30 14:50 | NUR ---
Arrived to unit on bed accompanied by PAR staff. To room 306. Oriented to room, call light and surroundings. Report received from PAR RN.
[2019-07-30] MEDS ORDERED: OXYC1TAB87 PO (15:11)
[2019-07-30] MEDS ORDERED: IBUP-1780 PO (15:11)
[2019-07-30] MEDS ORDERED: DOCU100C37 PO (15:11)
--- NOTE | 2019-07-30 15:12 | Discharge Instructions ---
Discharge Instructions Discharge Medications New, Converted or Re-Newed RX: RX on Chart Patient Instructions Patient Instructions: PRN Return to The Hospital For: PRN Activity & Diet Discharge Diet: No Restrictions Activity as Tolerated: No Orders-Post D/C & Referrals Follow Up Appt: Call to make follow up appt. for patient in 4 weeks. Activity: Rest for 24 hours, than as tolerated. Please call in RX to patient pharmacy. Diet: As tolerated-Clear Liquids only if nauseated. Tomorrow, may shower or tub bathe as desired. No driving for 24 hours, no alcoholic beverages for 24 hours, and nothing per vagina (no tampons, douching, or intercoarse) for 2 weeks. Patient to return to the clinic as soon as possible for: Temperature greater than 101F, Severe Pain, Foul discharge from incision or vagina, Excessive Bleeding (more than a period). TEVIN TITUS MD Jul 30, 2019 15:12
--- NOTE | 2019-07-30 15:13 | OPERATIVE REPORT ---
DATE OF SERVICE: 07/30/2019 PREOPERATIVE DIAGNOSIS: Stress urinary incontinence. POSTOPERATIVE DIAGNOSIS: Stress urinary incontinence. OPERATION PERFORMED: Pubovaginal sling and cystoscopy. SURGEON: Chase Vaughan MD ANESTHESIA: General. COMPLICATIONS: None. DESCRIPTION OF PROCEDURE: After Dr. Arthur performed the first part of his surgery that he will dictate, I inserted a Sheffield catheter draining clear urine. I passed the pubovaginal sling device, Solyx device on both sides using the described technique. The stent sling was sitting nicely under the mid urethra with no tension or twisting and passage of a hemostat easily between it and the underlying tissue. The catheter was then removed and cystoscopy confirmed intact ureteric orifices, bladder and urethra and presence of the sling under the mid urethra. I left the bladder half full to perform the manual Valsalva maneuver that was negative. I reinserted the Sheffield catheter draining clear fluid. Estimated blood loss for my part negligible and Dr. Arthur procedure was the rest of his surgery that he will dictate. Job ID: [id number] DocumentID: [id number] Dictated Date: 07/30/2019 13:00:38 [employer] Sales Representatives Date: 07/30/2019 15:12:06 Dictated By: CHASE VAUGHAN MD
[2019-07-30] MEDS ORDERED: ESTROGENS CONJ IV 25 MG/5 ML (PREMARIN) VIAL ONE (15:19)
[2019-07-30] MEDS ORDERED: WATER (STERILE) FOR INJECTION 10 ML ONE (15:19)
[2019-07-30] MEDS ORDERED: D5 LR IV SOLUTION 1,000 ML IV ONE (15:24)
--- NOTE | 2019-07-30 15:32 | OPERATIVE REPORT ---
DATE OF SERVICE: 07/30/2019 PREOPERATIVE DIAGNOSES: Vaginal prolapse and stress urinary incontinence. POSTOPERATIVE DIAGNOSES: Vaginal prolapse and stress urinary incontinence with incidental anterior rectal wall perforation. OPERATIVE PROCEDURE: Anterior and posterior vaginal repairs with enterocele repair as well as repair of an incidental anterior rectal wall perforation with Dr. Napier doing a pubovaginal sling and cystoscopy. OPERATIVE DESCRIPTION: With the patient in supine position under satisfactory general anesthesia, she was repositioned in the dorsal lithotomy position in the Elijah stirrups and prepped and draped in the usual fashion for vaginal surgery. Sheffield catheter was placed and the urinary bladder left to dependent drainage. Weighted speculum placed in posterior fornix of vagina. The anterior vaginal wall was grasped with two Aditi clamps near its midpoint. Vaginal wall was opened in the midline with Metzenbaum scissors. That opening was continued to approximately 1/2 cm from the urethral meatus and all the way to the apex of the vagina. The vaginal wall was then carefully dissected off the muscularis aspect of the bladder wall to the pubic rami bilaterally and then the endopelvic fascia and bladder wall were plicated with 2-0 Vicryl sutures, elevating the bladder and lengthening the urethra. At this point, Dr. Napier assumed care of the patient for a pubovaginal sling and cystoscopy which she will dictate, I remained to assist with this portion of the procedure. After completion of Dr. Napier's portion of the procedure again confirming that the bladder was intact they returned care of the patient to me. I resected the redundant anterior vagina wall muscularis mucosa and then closed the vaginal wall with a running locked suture of 3-0 Vicryl Rapide. Good support was evident. Sheffield catheter was left to dependent drainage and was draining clear yellow urine. Posterior repair was now affected by placing Aditi clamps on the perineum and the hymenal ring at 5 and 7 o'clock position. The patient had a very thin perineal body, very thin attenuated rectovaginal septum. An inverted triangle of skin was removed from the perineal body starting at the base of the triangle. At this two Aditi clamps the apex was approximately 3 cm down on the perineal body and upright triangle was removed from the posterior vaginal floor and then dissection was carried into the rectovaginal space the rectum from the vaginal mucosa. There was actually no intervening tissue at one point and a small defect was created in the anterior rectal wall. This was approximately a cm in length across the rectum. Dissection was carried above that and creating the rectovaginal space and bringing the rectal wall from the vaginal wall. With that done, a 3-0 Vicryl Rapide suture was used to invert the rectal mucosa into the rectum and then re-imbricating over that with a second layer and then 2-0 Vicryl sutures were used to restore the perineal tissue and re-imbricate over the repaired rectum. The dissection was carried out to the internal anal sphincter muscles that had been in the remote past and the patient had a disrupted anal sphincter. This sutures now of 2-0 Vicryl were used to restore continuity of the anal sphincter. The rectovaginal space was obliterated above the defect with sutures of 2-0 Vicryl with a small enterocele was present. It was closed. It was obliterated with 2-0 Vicryl pursestring suture. Redundant posterior vaginal muscularis mucosa was then removed sharply. Vaginal wall was closed with a running locked suture of 3-0 Vicryl Rapide, that closure was continued past the hymenal ring down the perineal body then back up to the hymenal ring where the suture was tied. Digital rectal exam at this point confirmed the integrity of the rectum. There were no sutures into or through the rectal mucosa. The defect that had been repaired was barely if at all palpable. There was no stricture or stenosis of the rectum. The vagina was now filled with Estrace vaginal cream and a pack of Kerlix gauze was placed. Sheffield catheter was left to dependent drainage. Sponge and needle counts were correct on completion of the procedure. Estimated blood loss was minimal. The patient tolerated the procedure well and was uneventfully awakened from her general anesthesia and transferred to recovery room in stable condition with plans for observation overnight. Job ID: [id number] DocumentID: [id number] Dictated Date: 07/30/2019 13:39:43 Staff Anesthetist Date: 07/30/2019 15:31:54 Dictated By: TEVIN TITUS MD
[2019-07-30] MEDS: D5 LR IV SOLUTION 1,000 ML IV SCH ×2 (15:36→23:28)
[2019-07-30] MEDS: oxyCODONE/APAP 5/325MG (PERCOCET 5) TABLET PO PRN (17:22)
[2019-07-30] MEDS ORDERED: KETOROLAC 15 MG/ML VIAL IVP SCH ×2 (18:00→21:00)
--- NOTE | 2019-07-30 19:50 | NUR ---
Called Dr. Arthur to verify Toradol order, changed to 30 mg instead of 15 mg. Update given & no other new orders kathrin'gracie.
[2019-07-30] MEDS: KETOROLAC 30 MG/ML VIAL IVP SCH (20:27)
[2019-07-31] MEDS: KETOROLAC 30 MG/ML VIAL IVP SCH (02:05)
[2019-07-31 05:00] VITALS: BP 84/49
[2019-07-31] MEDS: oxyCODONE/APAP 5/325MG (PERCOCET 5) TABLET PO PRN (06:40)
[2019-07-31] MEDS ORDERED: IBUPROFEN 800 MG (MOTRIN) TAB PO ONE (07:49)
[2019-07-31 08:00] VITALS: BP 98/59
--- NOTE | 2019-07-31 08:00 | NUR ---
A.M. ASSESSMENT COMPLETED. PT VOIDED 175 CC CLEAR YELLOW URINE IN HAT. AMBULATING WELL. SCDS OFF AT THIS TIME. VSS.
--- NOTE | 2019-07-31 08:15 | NUR ---
BLADDER SCAN REVEALS 7,8,6 MLS
--- NOTE | 2019-07-31 08:20 | NUR ---
DR. TITUS HERE TO SEE PT.
--- NOTE | 2019-07-31 08:41 | Progress Note ---
Standard Progress Note Progress Notes/Assess & Plan Date Seen by a Provider: Jul 31, 2019 Time Seen by a Provider: 08:39 Progress/Assessment & Plan This patient is without complaint. She is ambulating, voiding, tolerating oral intake well has good pain control. She denies chest pain, denies shortness breath, denies nausea vomiting, and denies headache. Surgical procedure was discussed in detail including the incidental anterior rectal wall perforation and repair patient was given return to clinic precautions Vital Signs Date Time Temp Pulse Resp B/P (MAP) Pulse Ox O2 Delivery O2 Flow Rate FiO2 07/31/19 05:00 98.4 76 18 84/49 (61) 96 Room Air 07/30/19 23:28 99.3 77 18 87/48 (61) 96 Room Air 07/30/19 20:27 Room Air 07/30/19 20:27 98.5 81 18 104/63 (77) 97 Room Air 07/30/19 17:22 98.3 81 18 106/59 (75) 96 Room Air 07/30/19 17:22 Room Air 07/30/19 15:36 99.0 75 16 119/71 (87) 98 Room Air 07/30/19 14:50 Room Air 07/30/19 14:50 98.5 16 98 Room Air 07/30/19 14:40 18 99 Room Air 07/30/19 14:40 Room Air 07/30/19 14:25 Room Air 07/30/19 14:25 18 99 Room Air 07/30/19 14:10 Room Air 07/30/19 14:10 14 100 Room Air 07/30/19 13:55 14 100 OxyMask 5 07/30/19 13:55 OxyMask 5 07/30/19 13:43 98.4 10 100 OxyMask 5 07/30/19 13:43 OxyMask 5 07/30/19 10:30 98.0 73 18 116/81 (93) 98 Room Air I & O 07/31/19 07:00 Intake Total 4030 ml Output Total 2035 ml Balance 1995 ml Vital signs are stable. Patient is afebrile. Abdomen is benign. Extremities show no clubbing or cyanosis. There is no Homans sign. Assessment and plan postoperative day number 1 doing well. Plan is for discharge home with follow-up in clinic Final Diagnosis Vaginal prolapse and stress urinary incontinence TACHO,TEVIN G MD Jul 31, 2019 08:41
[2019-07-31] MEDS ORDERED: DOCUSATE SODIUM 100 MG (COLACE) CAP PO SCH (09:00)
[2019-07-31] MEDS ORDERED: ESTRADIOL 1 MG TAB (ESTRACE) PO SCH (09:00)
--- NOTE | 2019-07-31 10:00 | NUR ---
RESTING QUIETLY IN BED. LIGHTS OUT. STATES +BM.
--- NOTE | 2019-07-31 10:20 | NUR ---
DR. VAUGHAN CALLED TO CHECK ON PT. UPDATE GIVEN. ORDER TO DISCHARGE.
[2019-07-31] MEDS ORDERED: CIPR-225 PO (10:33)
--- NOTE | 2019-07-31 10:45 | NUR ---
VOIDED 200CC WITH BLADDER SCAN OF 38,40,37 MLS RESIDUAL. STATES HAS HAD BM X3. PT REPORTS TAKING LINZESS.
--- NOTE | 2019-07-31 11:10 | NUR ---
DISCHARGE INSTRUCTIONS REVIEWED WITH COPY TO PT. STATES UNDERSTANDING OF ALL INSTRUCTIONS AND NEED TO F/U SCHEDULED AND NEEDED. RX GIVEN FOR PERCOCET AND REMAINING RXS CALLED TO [facility] PER PT REQUEST.
[2019-07-31 11:25] VITALS: BP 98/59
--- NOTE | 2019-07-31 11:25 | NUR ---
DISMISSED FROM [facility] VIA W/C IN STABLE CONDITION TO [facility] BY Abraham AND VALENTIN PRICE.
[2019-07-31] MEDS ORDERED: IBUPROFEN 800 MG (MOTRIN) TAB PO SCH (14:00)
== END 2019-07-31 11:25 | disposition home or self-care (01) ==
LOC: SDC 10:17 → WS 14:59 → SDC 07-31 11:25
PROVIDERS: ATTEND Obstetrics & Gynecology
DX: N81.10 Cystocele, unspecified (principal); N39.3 Stress incontinence (female) (male); K63.1 Perforation of intestine (nontraumatic); N18.5 Chronic kidney disease, stage 5; Z82.49 Family history of ischemic heart disease and other diseases of the circulatory system; Z83.3 Family history of diabetes mellitus; Z88.6 Allergy status to analgesic agent; Z88.8 Allergy status to other drugs, medicaments and biological substances; Z79.891 Long term (current) use of opiate analgesic; Z79.899 Other long term (current) drug therapy
CPT/HCPCS: 36415; 85025; 87081; 94664

== ENCOUNTER 2020-01-03 11:21 | Emergency (ER) | payer MEDICAID ==
[~2020-01-03] VITALS: Ht 162 cm; Wt 53.0 kg
[~2020-01-03 11:21] MED LIST changes: +CIPR-225 PO; +DOCU100C37 PO; +IBUP-1780 PO; +L.AC1CAP6 PO; -LACT70CA PO; +OXYC1TAB87 PO; +PROBIOTIC-10 370 MG PO
[2020-01-03] MEDS ORDERED: NS IV 1000 ML 1,000 ML IV SCH (12:30)
[2020-01-03] MEDS ORDERED: LORazepam INJ 2 MG/ML (ATIVAN) VIAL IVP ONE (12:30)
--- NOTE | 2020-01-03 12:34 | ED Psychosocial ---
General Chief Complaint: Substance Abuse Stated Complaint: INTOXICATED Nursing Triage Note: PT TO TRIAGE CO OF ALCOHOL ABUSE. STATES RELAPSED IN OCTOBER AND HAS BEEN BINGE DRINKING SINCE. STATES STOPPED EARLY THIS AM AT APPROX 0200. PT CO OF DIZZINESS AND SHAKINESS. PT HAS PERSON WITH HER THAT IS HELPING HER WITH TREATMENT Source: patient Exam Limitations: no limitations History of Present Illness Date Seen by Provider: Jan 03, 2020 Time Seen by Provider: 12:30 Initial Comments To ER with reports of alcohol abuse, she reports to me that she relapsed on Friday of last week, she's had quite a bit of wine and shots of vodka since then, she is not sure exactly how much. Last drink was at about 2 AM last night. She is now shaky and anxious, she states she is getting in to addiction treatment Center in the next few days at [place]. She is neither suicidal nor homicidal. Timing/Duration: constant Severity: moderate Allergies and Home Medications Allergies Coded Allergies: acetaminophen (Verified Allergy, Unknown, 07/14/15) codeine (Verified Allergy, Unknown, 07/14/15) hydrocodone (Verified Allergy, Unknown, 07/14/15) propoxyphene (Verified Allergy, Unknown, 07/14/15) Home Medications Atorvastatin Calcium 10 Mg Tablet, 10 MG PO DAILY, (Reported) Lifitegrast 1 Each Droperette, 1 DROP OU BID, (Reported) Linaclotide 72 Mcg Capsule, 72 MG PO DAILY, (Reported) Multivitamin 1 Each Tablet, 1 EACH PO DAILY, (Reported) Patient Home Medication List Home Medication List Reviewed: Yes Review of Systems Constitutional: see HPI EENTM: see HPI Respiratory: no symptoms reported Cardiovascular: no symptoms reported Genitourinary: no symptoms reported Musculoskeletal: no symptoms reported Skin: no symptoms reported Psychiatric/Neurological: No Symptoms Reported Past Otpovis-Vckpzp-Pievyy Hx Patient Social History Alcohol Use: Regular Use Alcohol Beverage of Choice: Wine, Vodka Recreational Drug Use: No Drug of Choice: hx COCAINE, ECSTASY. DENIES IV USE Smoking Status: Current Everyday Smoker Type Used: Cigarettes Recent Foreign Travel: No Contact w/Someone Who Travel: No Recent Infectious Disease Expo: No Recent Hopitalizations: No Physical Abuse: No Sexual Abuse: No Immunizations Up To Date Tetanus Booster (TDap): More than 5yrs Date of Influenza Vaccine: Aug 31, 2018 Seasonal Allergies Seasonal Allergies: Yes Past Medical History Surgeries: Yes (bladder stretch - Karthikeyan, breast augmentation, D&C, finger fx) Breast, Section, Eye Surgery, Gallbladder, 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, Orthopedic, Rectal Respiratory: No Currently Using CPAP: No Currently Using BIPAP: No Cardiac: No Neurological: No Reproductive Disorders: Yes Female Reproductive Disorders: Endometriosis [employer] History: 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 Sexually Transmitted Disease: No Genitourinary: Yes Gastrointestinal: Yes (ANAL POLYPECTOMY; DIVERTICULOSIS NOTED ON COLONOSCOPY) Diverticulosis, Polyps, Irritable Bowel Musculoskeletal: No Endocrine: No HEENT: No Loss of Vision: Denies Hearing Impairment: Denies Cancer: No Psychosocial: Yes (hx of Polysub Abuse - Cocaine, Ectasy; denies IV abuse; Heavy Alcohol Abuse) ADD/ADHD, Anxiety, PTSD, Bipolar, Depression Integumentary: No Blood Disorders: No Adverse Reaction/Blood Tranf: No Family Medical History Patient reports no known family medical history. CAD Over 55 Years Old, Diabetes Physical Exam Vital Signs - First Documented 01/03/20 12:12 Temp 36.9 Pulse 107 Resp 20 B/P (MAP) 144/91 (108) Pulse Ox 99 Capillary Refill : Less Than 3 Seconds Height, Weight, BMI Height: 5'4.00" Weight: 118lbs. 0.0oz. [id number]; 20.00 BMI Method:Stated General Appearance: WD/WN, no apparent distress HEENT: PERRL/EOMI, normal ENT inspection Respiratory: no respiratory distress, no accessory muscle use Gastrointestinal: normal bowel sounds, non tender Neurologic/Psychiatric: alert, normal mood/affect, oriented x 3 Appearance/Memory: appropriate appearance, appropriate insight, neat Behavior/Eye Contact: cooperative, good eye contact Thoughts/Hallucinations: normal thought pattern, no apparent hallucination Skin: normal color, warm/dry Progress/Results/Core Measures Results/Orders Lab Results Laboratory Tests Test 01/03/20 12:30 Range/Units White Blood Count 15.6 H 4.3-11.0 10^3/uL Red Blood Count 5.06 4.35-5.85 10^6/uL Hemoglobin 15.1 11.5-16.0 G/DL Hematocrit 44 35-52 % Mean Corpuscular Volume 88 80-99 FL Mean Corpuscular Hemoglobin 30 25-34 PG Mean Corpuscular Hemoglobin Concent 34 32-36 G/DL Red Cell Distribution Width 14.0 10.0-14.5 % Platelet Count 323 130-400 10^3/uL Mean Platelet Volume 8.7 7.4-10.4 FL Neutrophils (%) (Auto) 83 H 42-75 % Lymphocytes (%) (Auto) 12 12-44 % Monocytes (%) (Auto) 5 0-12 % Eosinophils (%) (Auto) 0 0-10 % Basophils (%) (Auto) 0 0-10 % Neutrophils # (Auto) 12.9 H 1.8-7.8 X 10^3 Lymphocytes # (Auto) 1.9 1.0-4.0 X 10^3 Monocytes # (Auto) 0.8 0.0-1.0 X 10^3 Eosinophils # (Auto) 0.0 0.0-0.3 10^3/uL Basophils # (Auto) 0.0 0.0-0.1 10^3/uL Neutrophils % (Manual) 76 % Lymphocytes % (Manual) 14 % Monocytes % (Manual) 4 % Eosinophils % (Manual) 0 % Basophils % (Manual) 0 % Band Neutrophils 6 % Blood Morphology Comment NORMAL Prothrombin Time 13.8 12.2-14.7 SEC INR Comment 1.0 0.8-1.4 Sodium Level 134 L 135-145 MMOL/L Potassium Level 4.4 3.6-5.0 MMOL/L Chloride Level 98 98-107 MMOL/L Carbon Dioxide Level 23 21-32 MMOL/L Anion Gap 13 5-14 MMOL/L Blood Urea Nitrogen 17 7-18 MG/DL Creatinine 0.77 0.60-1.30 MG/DL Estimat Glomerular Filtration Rate > 60 BUN/Creatinine Ratio 22 Glucose Level 129 H 70-105 MG/DL Calcium Level 8.9 8.5-10.1 MG/DL Corrected Calcium 8.5-10.1 MG/DL Total Bilirubin 0.7 0.1-1.0 MG/DL Aspartate Amino Transf (AST/SGOT) 70 H 5-34 U/L Alanine Aminotransferase (ALT/SGPT) 58 H 0-55 U/L Alkaline Phosphatase 123 40-136 U/L Total Protein 7.5 6.4-8.2 GM/DL Albumin 4.6 H 3.2-4.5 GM/DL Lipase 102 H 8-78 U/L Serum Alcohol < 10 <10 MG/DL My Orders Orders - EVITA SLATER [facility] Cbc With Automated Diff (01/03/20 12:24) Comprehensive Metabolic Panel (01/03/20 12:24) Lipase (01/03/20 12:24) Alcohol (01/03/20 12:24) Ua Culture If Indicated (01/03/20 12:24) Drug Screen Stat (Urine) (01/03/20 12:24) Protime With Inr (01/03/20 12:24) Ed Iv/Invasive Line Start (01/03/20 12:24) Ns Iv 1000 Ml (Sodium Chloride 0.9%) (01/03/20 12:30) Lorazepam Injection (Ativan Injection) (01/03/20 12:30) Clonidine Tablet (Catapres Tablet) (01/03/20 12:45) Clonidine Tablet (Catapres Tablet) (01/03/20 12:36) Manual Differential (01/03/20 12:30) General/Regular (01/03/20 Lunch) Medications Given in ED Current Medications Medications Dose Ordered Sig/Es Route Start Time Stop Time Status Last Admin Dose Admin Clonidine HCl 0.1 mg ONCE ONCE PO 01/03/20 12:45 01/03/20 12:46 DC 01/03/20 12:43 0.1 MG Lorazepam 1 mg ONCE ONCE IVP 01/03/20 12:30 01/03/20 12:31 DC 01/03/20 12:39 1 MG Vital Signs/I&O 01/03/20 12:12 Temp 36.9 Pulse 107 Resp 20 B/P (MAP) 144/91 (108) Pulse Ox 99 2 Blood Pressure Mean: 108 Departure Communication (Admissions) Alert and oriented, pleasant, Impression Primary Impression: alcohol withdrawal Disposition: 01 HOME, SELF-CARE Condition: Stable Departure-Patient Inst. Decision time for Depature: 14:21 Referrals: JD PRUETT MD (PCP) Primary Care Physician EMEKA VAUGHAN MD (Family) Primary Care Physician Patient Instructions: ALCOHOL AND SUBSTANCE ABUSE Add. Discharge Instructions: . Return to ER for any concerns 2. Follow-up with your doctor next week 3. All discharge instructions reviewed with patient and/or family. Voiced understanding. Scripts Lorazepam (Ativan) 1 Mg Tablet 1 MG PO Q8H PRN for ANXIETY for 7 Days, #9 TAB Prov: EVITA SLATER APRN 01/03/20 Clonidine HCl (Clonidine HCl) 0.1 Mg Tablet 0.1 MG PO BID, #10 TAB Prov: EVITA SLATER APRN 01/03/20 EVITA SLATER APRN Jan 03, 2020 12:34
[2020-01-03] MEDS ORDERED: cloNIDine 0.1 MG (CATAPRES) TAB ONE (12:36)
[2020-01-03 12:45] LABS: BASOPHILS % (AUTO) 0 % (0-10); EOSINOPHILS % (AUTO) 0 % (0-10); HEMATOCRIT 44 % (35-52); HEMOGLOBIN 15.1 G/DL (11.5-16.0); LYMPHOCYTES # (AUTO) 1.9 X 10^3 (1.0-4.0); LYMPHOCYTES % (AUTO) 12 % (12-44); MEAN CORPUSCULAR HEMOGLOBIN 30 PG (25-34); MEAN CORPUSCULAR HGB CONC 34 G/DL (32-36); MEAN CORPUSCULAR VOLUME 88 FL (80-99); MEAN PLATELET VOLUME 8.7 FL (7.4-10.4); MONOCYTES # (AUTO) 0.8 X 10^3 (0.0-1.0); MONOCYTES % (AUTO) 5 % (0-12); NEUTROPHILS # (AUTO) 12.9 X 10^3 (1.8-7.8); NEUTROPHILS % (AUTO) 83 % (42-75); PLATELET COUNT 323 10^3/uL (130-400); WHITE BLOOD COUNT 15.6 10^3/uL (4.3-11.0)
[2020-01-03] MEDS ORDERED: cloNIDine 0.1 MG (CATAPRES) TAB PO ONE (12:45)
[2020-01-03 12:55] LABS: PROTHROMBIN TIME PATIENT 13.8 SEC (12.2-14.7)
[2020-01-03 13:05] LABS: ALANINE AMINOTRANSFERASE 58 U/L (0-55); ALBUMIN 4.6 GM/DL (3.2-4.5); ALKALINE PHOSPHATASE 123 U/L (40-136); BILIRUBIN,TOTAL 0.7 MG/DL (0.1-1.0); BUN/CREATININE RATIO 22; CALCIUM 8.9 MG/DL (8.5-10.1); CARBON DIOXIDE 23 MMOL/L (21-32); CHLORIDE 98 MMOL/L (98-107); CREATININE SERUM 0.77 MG/DL (0.60-1.30); GFR ESTIMATED > 60; GLUCOSE 129 MG/DL (70-105); LIPASE 102 U/L (8-78); POTASSIUM 4.4 MMOL/L (3.6-5.0); SODIUM 134 MMOL/L (135-145); TOTAL PROTEIN 7.5 GM/DL (6.4-8.2)
[2020-01-03 13:08] LABS: BAND NEUTROPHILS 6 %; BASOPHILS % (MANUAL) 0 %; EOSINOPHILS % (MANUAL) 0 %; LYMPHOCYTES % (MANUAL) 14 %; MONOCYTES % (MANUAL) 4 %; NEUTROPHILS % (MANUAL) 76 %
[2020-01-03 13:09] LABS: RBC MORPH NORMAL
[2020-01-03] MEDS ORDERED: CLON0.1T PO (14:23)
[2020-01-03] MEDS ORDERED: LORA-405 PO (14:23)
[2020-01-03 14:56] VITALS: BP 144/91
== END 2020-01-03 14:55 | disposition home or self-care (01) ==
LOC: EDUNIT# 11:21 → ER 11:22
DX: F10.10 Alcohol abuse, uncomplicated (principal); K58.9 Irritable bowel syndrome, unspecified; F17.210 Nicotine dependence, cigarettes, uncomplicated; Z88.6 Allergy status to analgesic agent; Z88.5 Allergy status to narcotic agent; Z88.8 Allergy status to other drugs, medicaments and biological substances; Z82.49 Family history of ischemic heart disease and other diseases of the circulatory system; Y90.0 Blood alcohol level of less than 20 mg/100 ml
CPT/HCPCS: 36415; 80053; 80320; 83690; 85007; 85025; 85027; 85610; 96374

== ENCOUNTER 2020-03-22 17:32 | Emergency (ER) | payer MEDICAID ==
[~2020-03-22] VITALS: Ht 162 cm; Wt 50.0 kg
[~2020-03-22 17:32] MED LIST changes: +CLON0.1T PO
[2020-03-22] MEDS ORDERED: THIAMINE INJECTION 100 MG, FOLIC ACID INJECTION 1 MG, VITAMIN MULTI INJECTION 10 ML, MA... IV STA ×5 (17:54)
[2020-03-22 18:04] LABS: BASOPHILS % (AUTO) 0 % (0-10); EOSINOPHILS % (AUTO) 0 % (0-10); HEMATOCRIT 43 % (35-52); HEMOGLOBIN 14.9 G/DL (11.5-16.0); LYMPHOCYTES # (AUTO) 2.2 X 10^3 (1.0-4.0); LYMPHOCYTES % (AUTO) 23 % (12-44); MEAN CORPUSCULAR HEMOGLOBIN 31 PG (25-34); MEAN CORPUSCULAR HGB CONC 35 G/DL (32-36); MEAN CORPUSCULAR VOLUME 88 FL (80-99); MEAN PLATELET VOLUME 9.3 FL (7.4-10.4); MONOCYTES # (AUTO) 0.6 X 10^3 (0.0-1.0); MONOCYTES % (AUTO) 6 % (0-12); NEUTROPHILS # (AUTO) 6.8 X 10^3 (1.8-7.8); NEUTROPHILS % (AUTO) 70 % (42-75); PLATELET COUNT 292 10^3/uL (130-400); RED CELL DISTRIBUTION WIDTH 13.7 % (10.0-14.5); WHITE BLOOD COUNT 9.7 10^3/uL (4.3-11.0)
[2020-03-22 18:12] LABS: BILIRUBIN,URINE NEGATIVE (NEGATIVE); CLARITY,URINE CLEAR; COLOR,URINE YELLOW; GLUCOSE, URINE (UA) NEGATIVE (NEGATIVE); KETONES,URINE 2+ (NEGATIVE); LEUKOCYTE ESTERASE ,URINE NEGATIVE (NEGATIVE); NITRITE,URINE NEGATIVE (NEGATIVE); PROTEIN,URINE NEGATIVE (NEGATIVE)
[2020-03-22 18:15] LABS: ALANINE AMINOTRANSFERASE 41 U/L (0-55); ALBUMIN 4.6 GM/DL (3.2-4.5); ALKALINE PHOSPHATASE 89 U/L (40-136); BILIRUBIN,TOTAL 0.7 MG/DL (0.1-1.0); BUN/CREATININE RATIO 21; CALCIUM 9.2 MG/DL (8.5-10.1); CARBON DIOXIDE 20 MMOL/L (21-32); CHLORIDE 100 MMOL/L (98-107); CREATININE SERUM 0.81 MG/DL (0.60-1.30); GFR ESTIMATED > 60; GLUCOSE 103 MG/DL (70-105); POTASSIUM 3.9 MMOL/L (3.6-5.0); SALICYLATE < 5.0 MG/DL (5.0-20.0); SODIUM 134 MMOL/L (135-145); TOTAL PROTEIN 7.6 GM/DL (6.4-8.2)
[2020-03-22 18:16] LABS: ACETAMINOPHEN < 10 UG/ML (10-30)
[2020-03-22 18:35] LABS: AMPHETAMINE SCREEN, URINE NEGATIVE (NEGATIVE); BACTERIA,URINE FEW /HPF; BARBITURATE SCREEN URINE NEGATIVE (NEGATIVE); BENZODIAZEPINES SCREEN URINE NEGATIVE (NEGATIVE); CANNABINOID SCREEN, URINE NEGATIVE (NEGATIVE); COCAINE SCREEN URINE NEGATIVE (NEGATIVE); METHADONE STAT NEGATIVE (NEGATIVE); METHAMPHETAMINE SCREEN URINE S NEGATIVE (NEGATIVE); OPIATE SCREEN URINE NEGATIVE (NEGATIVE); OXYCODONE STAT NEGATIVE (NEGATIVE); PROPOXYPHENE STAT NEGATIVE (NEGATIVE); TRICYCLIC ANTIDEPRESSANTS SCRE NEGATIVE (NEGATIVE)
[2020-03-22] MEDS ORDERED: LORazepam INJ 2 MG/ML (ATIVAN) VIAL IVP ONE (18:45)
--- NOTE | 2020-03-22 18:50 | ED Psychosocial ---
General Chief Complaint: Substance Abuse Stated Complaint: ALOCHOL Nursing Triage Note: PT TO [facility] WITH CC OF ETOH ABUSE, 1/2 BOTTLE OF WINE THIS A.M. AND ALSO SOME VODKA, DRINKING FOR 4 DAYS. HX OF ETOH ABUSE. History of Present Illness Date Seen by Provider: Mar 22, 2020 Time Seen by Provider: 17:40 Initial Comments 49 Year old female presents for worsening ETOH abuse, anxiety and depression. Wanting to do inpatient treatment for ETOH addiction. Taking W elbuterin and sees Jorje Sosa at [facility] for mental health, he is working on finding her a placement for treatment. No thoughts of harming self or others. Longstanding hx of ETOH use, drank only sips of wine today. Yesterday, she had wine and vodka. Mild tremor, no seizures. Timing/Duration: getting worse Associated Symptoms: anxiety, impaired concentration Allergies and Home Medications Allergies Coded Allergies: acetaminophen (Verified Allergy, Unknown, 07/14/15) codeine (Verified Allergy, Unknown, 07/14/15) hydrocodone (Verified Allergy, Unknown, 07/14/15) propoxyphene (Verified Allergy, Unknown, 07/14/15) Home Medications Atorvastatin Calcium 10 Mg Tablet, 10 MG PO DAILY, (Reported) Clonidine HCl 0.1 Mg Tablet, 0.1 MG PO BID Prescribed by: EVITA SLATER on 01/03/201422 Lifitegrast 1 Each Droperette, 1 DROP OU BID, (Reported) Linaclotide 72 Mcg Capsule, 72 MG PO DAILY, (Reported) Lorazepam 1 Mg Tablet, 1 MG PO Q8H PRN for ANXIETY Prescribed by: EVITA SLATER on 01/03/201422 Multivitamin 1 Each Tablet, 1 EACH PO DAILY, (Reported) Patient Home Medication List Home Medication List Reviewed: Yes Review of Systems Constitutional: no symptoms reported, see HPI Psychiatric/Neurological: See HPI, Anxiety, Emotional Problems All Other Systems Reviewed Negative Unless Noted: Yes Past Vaznezh-Ijufix-Jakmwg Hx Past Med/Social Hx: Reviewed Nursing Past Med/Soc Hx Patient Social History Alcohol Use: Regular Use Number of Drinks Today: 5 Alcohol Beverage of Choice: Wine, Vodka Recreational Drug Use: No Drug of Choice: hx COCAINE, ECSTASY. DENIES IV USE Smoking Status: Current Everyday Smoker Type Used: Cigarettes Recent Foreign Travel: No Contact w/Someone Who Travel: No Recent Infectious Disease Expo: No Recent Hopitalizations: No Physical Abuse: No Sexual Abuse: No Mistreated: No Fear: No Immunizations Up To Date Tetanus Booster (TDap): More than 5yrs Date of Influenza Vaccine: Aug 31, 2018 Seasonal Allergies Seasonal Allergies: Yes Past Medical History Surgeries: Yes (bladder stretch - Karthikeyan, breast augmentation, D&C, finger fx) Breast, Section, Eye Surgery, Gallbladder, 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, Orthopedic, Rectal Respiratory: No Currently Using CPAP: No Currently Using BIPAP: No Cardiac: No Neurological: No Reproductive Disorders: Yes 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 CAD Over 55 Years Old, Diabetes Physical Exam Vital Signs - First Documented 03/22/20 17:34 Temp 37.0 Pulse 96 Resp 20 B/P (MAP) 116/74 (88) Pulse Ox 98 O2 Delivery Room Air Capillary Refill : Less Than 3 Seconds Height, Weight, BMI Height: 5'4.00" Weight: 118lbs. 0.0oz. [id number]; 19.00 BMI Method:Stated General Appearance: WD/WN, mild distress HEENT: PERRL/EOMI, normal ENT inspection, TMs normal, pharynx normal Neck: non-tender, full range of motion, supple, normal inspection Respiratory: chest non-tender, lungs clear, normal breath sounds, no respiratory distress Cardiovascular: normal peripheral pulses, regular rate, rhythm Gastrointestinal: normal bowel sounds, non tender, soft Neurologic/Psychiatric: no motor/sensory deficits, alert, oriented x 3 Appearance/Memory: appropriate appearance, neat, no memory impairment Behavior/Eye Contact: cooperative, good eye contact, normal speech Thoughts/Hallucinations: no apparent hallucination, delusions Skin: normal color, warm/dry Progress/Results/Core Measures Results/Orders Lab Results Laboratory Tests Test 03/22/20 17:35 03/22/20 17:55 Range/Units White Blood Count 9.7 4.3-11.0 10^3/uL Red Blood Count 4.88 4.35-5.85 10^6/uL Hemoglobin 14.9 11.5-16.0 G/DL Hematocrit 43 35-52 % Mean Corpuscular Volume 88 80-99 FL Mean Corpuscular Hemoglobin 31 25-34 PG Mean Corpuscular Hemoglobin Concent 35 32-36 G/DL Red Cell Distribution Width 13.7 10.0-14.5 % Platelet Count 292 130-400 10^3/uL Mean Platelet Volume 9.3 7.4-10.4 FL Neutrophils (%) (Auto) 70 42-75 % Lymphocytes (%) (Auto) 23 12-44 % Monocytes (%) (Auto) 6 0-12 % Eosinophils (%) (Auto) 0 0-10 % Basophils (%) (Auto) 0 0-10 % Neutrophils # (Auto) 6.8 1.8-7.8 X 10^3 Lymphocytes # (Auto) 2.2 1.0-4.0 X 10^3 Monocytes # (Auto) 0.6 0.0-1.0 X 10^3 Eosinophils # (Auto) 0.0 0.0-0.3 10^3/uL Basophils # (Auto) 0.0 0.0-0.1 10^3/uL Sodium Level 134 L 135-145 MMOL/L Potassium Level 3.9 3.6-5.0 MMOL/L Chloride Level 100 98-107 MMOL/L Carbon Dioxide Level 20 L 21-32 MMOL/L Anion Gap 14 5-14 MMOL/L Blood Urea Nitrogen 17 7-18 MG/DL Creatinine 0.81 0.60-1.30 MG/DL Estimat Glomerular Filtration Rate > 60 BUN/Creatinine Ratio 21 Glucose Level 103 70-105 MG/DL Calcium Level 9.2 8.5-10.1 MG/DL Corrected Calcium 8.5-10.1 MG/DL Total Bilirubin 0.7 0.1-1.0 MG/DL Aspartate Amino Transf (AST/SGOT) 56 H 5-34 U/L Alanine Aminotransferase (ALT/SGPT) 41 0-55 U/L Alkaline Phosphatase 89 40-136 U/L Total Protein 7.6 6.4-8.2 GM/DL Albumin 4.6 H 3.2-4.5 GM/DL TSH [place] Testing 2.26 0.35-4.94 UIU/ML Salicylates Level < 5.0 L 5.0-20.0 MG/DL Acetaminophen Level < 10 L 10-30 UG/ML Serum Alcohol < 10 <10 MG/DL Urine Color YELLOW Urine Clarity CLEAR Urine pH 6.0 5-9 Urine Specific [place] >=1.030 1.016-1.022 Urine Protein NEGATIVE NEGATIVE Urine Glucose (UA) NEGATIVE NEGATIVE Urine Ketones 2+ H NEGATIVE Urine Nitrite NEGATIVE NEGATIVE Urine Bilirubin NEGATIVE NEGATIVE Urine Urobilinogen 0.2 < = 1.0 MG/DL Urine Leukocyte Esterase NEGATIVE NEGATIVE Urine RBC (Auto) NEGATIVE NEGATIVE Urine RBC NONE /HPF Urine WBC NONE /HPF Urine Squamous Epithelial Cells 2-5 /HPF Urine Crystals NONE /LPF Urine Bacteria FEW H /HPF Urine Casts NONE /LPF Urine Mucus MODERATE H /LPF Urine Culture Indicated NO Urine Opiates Screen NEGATIVE NEGATIVE Urine Oxycodone Screen NEGATIVE NEGATIVE Urine Methadone Screen NEGATIVE NEGATIVE Urine Propoxyphene Screen NEGATIVE NEGATIVE Urine Barbiturates Screen NEGATIVE NEGATIVE Ur Tricyclic Antidepressants Screen NEGATIVE NEGATIVE Urine Phencyclidine Screen NEGATIVE NEGATIVE Urine Amphetamines Screen NEGATIVE NEGATIVE Urine Methamphetamines Screen NEGATIVE NEGATIVE Urine Benzodiazepines Screen NEGATIVE NEGATIVE Urine Cocaine Screen NEGATIVE NEGATIVE Urine Cannabinoids Screen NEGATIVE NEGATIVE My Orders Orders - EMMY SOLO DRAFTER TOPOGRAPHICAL Ua Culture If Indicated (03/22/20 17:51) Cbc With Automated Diff (03/22/20 17:51) Comprehensive Metabolic Panel (03/22/20 17:51) Alcohol (03/22/20 17:51) Drug Screen Stat (Urine) (03/22/20 17:51) Acetaminophen (03/22/20 17:51) Salicylate (03/22/20 17:51) Thyroid Analyzer (03/22/20 17:51) Monitor-Rhythm Ecg Trace Only (03/22/20 17:51) Urine Bedside (03/22/20 17:51) Thiamine Injection (Vitamin B-1 Injectio (03/22/20 17:54) Lorazepam Injection (Ativan Injection) (03/22/20 18:45) Rx-Lorazepam (Rx-Ativan) (03/22/20 19:37) Medications Given in ED Current Medications Medications Dose Ordered Sig/Es Route Start Time Stop Time Status Last Admin Dose Admin Lorazepam 0.5 mg ONCE ONCE IVP 03/22/20 18:45 03/22/20 18:46 DC 03/22/20 18:41 0.5 MG Vital Signs/I&O 03/22/20 03/22/20 17:34 20:34 Temp 37.0 Pulse 96 98 Resp 20 18 B/P (MAP) 116/74 (88) 138/77 Pulse Ox 98 97 O2 Delivery Room Air Blood Pressure Mean: 88 Progress Progress Note : Time: 17:40 Progress Note Patient seen and evaluated, will obtain labs, EKG and give 1 banana bag. She is seeking assistance to quit drinking ETOH. 1829 Patient complains of anxiety, will give Ativan IV. 1899 Less anxiety, spoke to Jorje Valentino from [facility] Mental Health. He is working to secure an inpatient rehab for the patient to go tomorrow. He has appt with her tomorrow at 0900 and wants her to keep that appt. 1914 Discharge planning and home precautions reviewed with the patient. She will stay with a friend krunal and see her therapist tomorrow. She desires inpatient rehab. Departure Impression Primary Impression: ETOH abuse Disposition: HOME, SELF-CARE Condition: Improved Departure-Patient Inst. Decision time for Depature: 19:15 [facility]Family[facility] Primary Care Physician Patient Instructions: ALCOHOL AND SUBSTANCE ABUSE Add. Discharge Instructions: Avoid any use of alcohol. Keep appt with [facility] Counselor at 9:00 03/23/20, take labs with you. Increase water intake, 16 oz every 2-3 hours while awake. Stay with friend. Return to the Emergency Dept for new, urgent healthcare needs. All discharge instructions reviewed with patient and/or family. Voiced understanding. EMMY SOLO Mar 22, 2020 18:49
[2020-03-22] MEDS ORDERED: RX-LORAZEPAM (ATIVAN) 0.5 MG TAB PPK#4 PO STA (19:37)
[2020-03-22 20:34] VITALS: BP 138/77
== END 2020-03-22 20:34 | disposition home or self-care (01) ==
LOC: EDUNIT# 17:32 → ER 17:34
DX: F10.10 Alcohol abuse, uncomplicated (principal); F90.9 Attention-deficit hyperactivity disorder, unspecified type; F31.9 Bipolar disorder, unspecified; F41.9 Anxiety disorder, unspecified; K58.9 Irritable bowel syndrome, unspecified; F17.210 Nicotine dependence, cigarettes, uncomplicated; Z88.6 Allergy status to analgesic agent; Z88.5 Allergy status to narcotic agent; Z88.8 Allergy status to other drugs, medicaments and biological substances; Z82.49 Family history of ischemic heart disease and other diseases of the circulatory system; Y90.0 Blood alcohol level of less than 20 mg/100 ml
CPT/HCPCS: 36415; 80053; 80306; 80320; 80329; 81000; 84443; 84703; 85025; 93041

== ENCOUNTER → 2020-06-05 | Outpatient (CLI) | payer MEDICAID ==
--- NOTE | 2020-06-05 09:12 | Diagnostic Imaging Report ---
Indication: Routine screening. Comparison is made with prior mammogram from 02/01/2019. 2-D and 3-D bilateral screening mammography was performed with CAD. Both breasts are heterogeneously dense, limiting the sensitivity of mammography. Bilateral subpectoral breast implants are again noted. Implant contours appear smooth. The parenchymal pattern is stable. No mass or malignant appearing microcalcifications are seen. Axillae are unremarkable. IMPRESSION: BI-RADS Category 2 No mammographic features suspicious for malignancy are identified. ACR BI-RADS Category 2: Benign findings. Result letter will be mailed to the patient. Note: At least 10% of breast cancer is not imaged by mammography. Dictated by: Dictated on workstation # [id number]
== END ==
LOC: RAD 08:00
PROVIDERS: ATTEND Nurse Practitioner Community Health
DX: Z12.31 Encounter for screening mammogram for malignant neoplasm of breast (principal)
CPT/HCPCS: 77063; 77067

== ENCOUNTER 2022-09-13 05:20 | Outpatient (CLI) | payer MEDICAID ==
[~2022-09-13] VITALS: Ht 162 cm; Wt 55.0 kg
[~2022-09-13 05:20] MED LIST changes: +BUPR150T24 PO; -BUPR150T7 PO; +CLN.1T PO; -CLON0.1T PO; +CYCL10TA25; -CYCL10TA9
[2022-09-13] MEDS ORDERED: ESTR2TAB4 PO (09:15)
[2022-09-13] MEDS ORDERED: CYCL1DRO OP (09:15)
[2022-09-13] MEDS ORDERED: OMEP20CA18 PO (09:15)
[2022-09-13] MEDS ORDERED: MELO15TA39 PO (09:15)
[2022-09-13] MEDS ORDERED: ATOR10TA66 PO (09:15)
== END 2022-09-13 09:27 | disposition home or self-care (01) ==
LOC: PREOP 05:20
PROVIDERS: ATTEND Obstetrics & Gynecology
DX: Z01.818 Encounter for other preprocedural examination (principal)

== ENCOUNTER 2022-09-20 06:16 | Day surgery (SDC) | payer MEDICAID ==
[~2022-09-20] VITALS: Ht 162.6 cm; Wt 57.0 kg
[2022-09-20] VITALS (13 sets, daily range): BP systolic 104–139; BP diastolic 55–76
[~2022-09-20 06:16] MED LIST changes: +CYCL1DRO OP; +ESTR2TAB4 PO; +LACTATED RINGERS 1,000 ML IV PRN; +MELO15TA39 PO; +OMEP20CA18 PO; +ceFAZolin INJECTION 1,000 MG in NS (IVPB) 50 ML IV ONE
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
[2022-09-20] MEDS ORDERED: ceFAZolin INJECTION 1,000 MG in NS (IVPB) 50 ML IV ONE ×2 (06:30→07:15)
[2022-09-20] MEDS ORDERED: LACTATED RINGERS 1,000 ML IV PRN (06:30)
[2022-09-20] MEDS ORDERED: MIDAZOLAM 2 MG/2 ML (VERSED) VIAL ONE (06:48)
[2022-09-20] MEDS ORDERED: ONDANSETRON 4 MG/2 ML (SDV) Z0FRAN ONE (06:48)
[2022-09-20] MEDS ORDERED: fentaNYL INJ 100 MCG/2 ML AMP ONE (06:48)
[2022-09-20] MEDS ORDERED: proPOfol 200 MG/20 ML (DIPRIVAN) VIAL IV ONE (06:48)
[2022-09-20] MEDS ORDERED: LIDOCAINE PF 2% 5 ML (XYLOCAINE) VIAL ONE (06:48)
[2022-09-20 06:58] LABS: BASOPHILS # (AUTO) 0.1 10^3/uL (0.0-0.1); BASOPHILS % (AUTO) 1 % (0-10); EOSINOPHILS # (AUTO) 0.2 10^3/uL (0.0-0.3); EOSINOPHILS % (AUTO) 2 % (0-10); HEMATOCRIT 40 % (35-52); HEMOGLOBIN 13.6 g/dL (11.5-16.0); LYMPHOCYTES # (AUTO) 2.6 10^3/uL (1.0-4.0); LYMPHOCYTES % (AUTO) 32 % (12-44); MEAN CORPUSCULAR HEMOGLOBIN 31 pg (25-34); MEAN CORPUSCULAR HGB CONC 34 g/dL (32-36); MEAN CORPUSCULAR VOLUME 91 fL (80-99); MEAN PLATELET VOLUME 9.8 fL (9.0-12.2); MONOCYTES # (AUTO) 0.6 10^3/uL (0.0-1.0); MONOCYTES % (AUTO) 8 % (0-12); NEUTROPHILS # (AUTO) 4.7 10^3/uL (1.8-7.8); NEUTROPHILS % (AUTO) 57 % (42-75); PLATELET COUNT 277 10^3/uL (130-400); WHITE BLOOD COUNT 8.1 10^3/uL (4.3-11.0)
[2022-09-20] MEDS ORDERED: ESTRADIOL VAGINAL CREAM 42.5 GM (ESTRACE) VG ONE (07:03)
--- NOTE | 2022-09-20 07:19 | Progress Note-Pre Operative ---
Pre-Operative Progress Note Date of Available H&P: Sep 20, 2022 Date H&P Reviewed: Sep 20, 2022 Time H&P Reviewed: 07:19 History & Physical: H&P Reviewed, No changes noted Pre-Operative Diagnosis: Rectocele TEVIN TITUS MD Sep 20, 2022 07:19
--- NOTE | 2022-09-20 07:20 | Progress Note-Post Operative ---
Post-Operative Progess Note Surgeon (s)/Home Service Consultant (s) Surgeon TEVIN TITUS MD Home Service Consultant: Two Pre-Operative Diagnosis Rectocele Post-Operative Diagnosis Same Procedure & Operative Findings Date of Procedure 09/20/22 Procedure Performed/Findings Posterior colporrhaphy Anesthesia Type General Estimated Blood Loss Estimated blood loss (mL): min Specimens/Packing Specimens Removed None Packing: Kerlix in the vagina TEVIN TITUS MD Sep 20, 2022 07:20
[2022-09-20] MEDS ORDERED: MEPERIDINE (DEMEROL) INJ 50 MG/ML IVP PRN (07:30)
[2022-09-20] MEDS ORDERED: PROMETHAZINE INJ 25 MG/ML (PHENERGAN) AMP IM PRN ×2 (07:30→10:30)
[2022-09-20] MEDS ORDERED: ONDANSETRON 4 MG/2 ML (SDV) Z0FRAN IVP PRN ×2 (07:30→08:15)
[2022-09-20] MEDS ORDERED: BENZOCAINE/MENTHOL (DERMOPLAST) 56 ML CAN TP PRN (07:30)
[2022-09-20] MEDS ORDERED: ESTROGENS CONJ INJECTION 25 MG in WATER (STERILE) FOR INJECTION 5 ML IV ONE (07:30)
[2022-09-20] MEDS ORDERED: SEVOFLURANE (ULTANE) 15 ML INHAL SOLN ONE (08:04)
[2022-09-20] MEDS ORDERED: morphine INJ 10 MG/ML 1ML (SYR OR VIAL) IVP ONE (08:15)
[2022-09-20] MEDS ORDERED: HYDROmorphone 2 MG/ML VIAL (DILAUDID) IV ONE (08:15)
--- NOTE | 2022-09-20 08:15 | Anesthesia-General Post-Op ---
General Patient Condition Mental Status/LOC: Same as Preop Cardiovascular: Satisfactory Nausea/Vomiting: Absent Respiratory: Satisfactory Pain: Controlled Complications: Absent Post Op Complications Complications None Follow Up Care/Instructions Patient Instructions None needed. Anesthesia/Patient Condition Patient Condition Patient is doing well, no complaints, stable vital signs, no apparent adverse anesthesia problems. No complications reported per nursing. ANTHONY KAUR CRNA Sep 20, 2022 08:15
[2022-09-20] MEDS ORDERED: WATER (STERILE) FOR INJECTION 10 ML ONE (08:26)
[2022-09-20] MEDS ORDERED: KETOROLAC 30 MG/ML VIAL ONE (08:26)
[2022-09-20] MEDS ORDERED: HYDROmorphone 2 MG/ML VIAL (DILAUDID) ONE (08:26)
--- NOTE | 2022-09-20 08:27 | OPERATIVE REPORT ---
DATE OF SERVICE: 09/20/2022 PREOPERATIVE DIAGNOSIS: Rectocele. POSTOPERATIVE DIAGNOSIS: Rectocele. PROCEDURE: Posterior colporrhaphy. OPERATIVE DESCRIPTION: With the patient in the supine position under satisfactory general anesthesia, she was repositioned in dorsal lithotomy position in the Elijah stirrups and then prepped and draped in the usual fashion for vaginal surgery. The patient had a second to third degree cystocele. Aditi clamps were placed on the perineum and the hymenal ring at the 5 and 7 o'clock position. An inverted triangle of skin was removed from the perineal body using as the base of the triangle with two Aditi clamps an upright triangle was removed from the posterior vaginal floor using the same base. The rectovaginal space was entered sharply and dissected bluntly to the apex of the vagina. It was explored. There was no enterocele. The rectovaginal space was obliterated with interrupted sutures of 2-0 Vicryl. The perineal body was restored with additional sutures of 2-0 Vicryl. Redundant posterior vaginal muscularis mucosa was removed sharply. Vaginal wall was closed with a running suture in a locking fashion, 3-0 Vicryl Rapide closure was continued past the hymenal ring down on the perineal body then back up subcutaneous to the hymenal ring where the suture was tied. Inspection of the incision line showed a small area of bleeding. A [id number] suture of 2-0 Vicryl was placed for hemostasis. Good hemostasis assured. The Sheffield catheter was placed to dependent drainage with straw-colored urine draining. The vagina was filled with Estrace vaginal cream and a pack of Kerlix gauze was placed. Digital rectal exam confirmed no stricture or stenosis of the rectum and no sutures into or through the rectal mucosa. Sponge and needle counts were correct. Blood loss was minimal. The patient was uneventfully awakened from her general anesthesia and transferred to recovery room in stable condition. Job ID: [id number] DocumentID: [id number] Dictated Date: 09/20/2022 08:02:25 Flight Data Technician Date: 09/20/2022 08:27:12 Dictated By: TEVIN TITUS MD
[2022-09-20] MEDS: KETOROLAC 30 MG/ML VIAL IV SCH ×3 (08:32→20:16)
[2022-09-20] MEDS ORDERED: DOCUSATE SODIUM 100 MG (COLACE) CAP PO SCH (09:00)
[2022-09-20] MEDS: D5 LR IV SOLUTION 1,000 ML IV SCH ×2 (11:23→19:06)
[2022-09-20] MEDS ORDERED: MEPERIDINE (DEMEROL) INJ 50 MG/ML IM PRN (11:30)
[2022-09-20] MEDS: oxyCODONE/APAP 5/325MG (PERCOCET 5) TABLET PO PRN ×3 (13:18→22:08)
[2022-09-21 00:05] VITALS: BP 113/53
[2022-09-21] MEDS: KETOROLAC 30 MG/ML VIAL IV SCH (02:12)
[2022-09-21] MEDS: D5 LR IV SOLUTION 1,000 ML IV SCH (03:58)
[2022-09-21 06:20] VITALS: BP 113/54
[2022-09-21] MEDS ORDERED: IBUPROFEN 800 MG (MOTRIN) TAB PO SCH (07:30)
[2022-09-21] MEDS: oxyCODONE/APAP 5/325MG (PERCOCET 5) TABLET PO PRN (08:05)
--- NOTE | 2022-09-21 08:49 | Progress Note ---
Standard Progress Note Progress Notes/Assess & Plan Date Seen by a Provider: Sep 21, 2022 Time Seen by a Provider: 08:48 Progress/Assessment & Plan This patient is without complaint. She is ambulating, tolerating oral intake well and has good pain control. She has not voided since her Sheffield catheter was removed. She has not felt the urge. Vital Signs Date Time Temp Pulse Resp B/P (MAP) Pulse Ox O2 Delivery O2 Flow Rate FiO2 09/21/22 06:20 37.0 76 18 113/54 (73) 97 Room Air 09/21/22 00:05 36.8 74 18 113/53 (73) 98 Room Air 09/20/22 20:20 37.5 73 18 121/59 (79) 96 Room Air 09/20/22 16:37 36.8 74 16 104/56 (72) 96 Room Air 09/20/22 13:32 Room Air 09/20/22 11:30 36.1 78 18 110/55 (73) 97 Room Air 09/20/22 09:45 Room Air 09/20/22 09:45 36.3 63 18 108/56 (73) 95 Room Air 09/20/22 09:25 Room Air 09/20/22 09:20 36.6 20 120/65 (83) 100 Room Air 09/20/22 09:15 Room Air 09/20/22 09:10 20 104/58 (73) 99 Room Air 09/20/22 09:00 Room Air 09/20/22 09:00 20 104/58 (73) 99 Room Air 09/20/22 08:50 20 107/65 (79) 98 Room Air I & O 09/21/22 07:00 Intake Total 4060 ml Output Total 4780 ml Balance -720 ml Vital signs are stable. Patient is afebrile. The abdomen is benign. Extremities show no clubbing or cyanosis. There is no Homans' sign. Assessment and plan Postoperative day #1 status post posterior colporrhaphy. Plan is for discharge home when patient demonstrates adequate bladder function Final Diagnosis Rectocele TEVIN TITUS MD Sep 21, 2022 08:49
[2022-09-21] MEDS ORDERED: DOCUSATE SODIUM 100 MG (COLACE) CAP PO SCH (09:00)
== END 2022-09-21 10:12 | disposition home or self-care (01) ==
LOC: SDC 06:16 → EDSTATUS 07:30 → WS 09:41 → SDC 09-21 10:12
PROVIDERS: ATTEND Obstetrics & Gynecology
DX: N81.6 Rectocele (principal); F17.210 Nicotine dependence, cigarettes, uncomplicated; Z79.890 Hormone replacement therapy; K21.9 Gastro-esophageal reflux disease without esophagitis; Z79.899 Other long term (current) drug therapy
CPT/HCPCS: 36415; 84703; 85025; 87081; 94664

== ENCOUNTER → 2023-01-02 | Outpatient (CLI) | payer OTHER ==
[~2023-01-02] MED LIST changes: -LACTATED RINGERS 1,000 ML IV PRN; -ceFAZolin INJECTION 1,000 MG in NS (IVPB) 50 ML IV ONE
--- NOTE | 2023-01-02 10:58 | Diagnostic Imaging Report ---
INDICATION: Shortness of breath. PA and lateral views were obtained. FINDINGS: The heart size, mediastinal configuration, and pulmonary vascularity are within normal limits. There is no pleural effusion, pneumothorax, or pneumonia. The osseous structures are unremarkable. IMPRESSION: No acute cardiopulmonary abnormality. Dictated by: Dictated on workstation # [id number]
--- NOTE | 2023-01-02 11:02 | Diagnostic Imaging Report ---
INDICATION: Neck pain. AP, odontoid, and lateral and flexion extension views of the cervical spine are obtained. Cervical vertebrae are normal in height. There is slight anterolisthesis of C4 on C5. There is disc space narrowing at C5 on C6 with anterior and posterior osteophyte formation. There is no facet dislocation. There is no significant abnormal motion between flexion and extension. IMPRESSION: Slight anterolisthesis of C4 on C5. Disc space narrowing at C5-C6 with osteophyte formation. No overt acute abnormality. Dictated by: Dictated on workstation # [id number]
--- NOTE | 2023-01-02 14:05 | Diagnostic Imaging Report ---
INDICATION: Lumbar pain. FINDINGS: AP and lateral views of the lumbar spine are obtained. Lumbar spinal curvature and alignment are unremarkable. There is mild sclerosis about the lower lumbar facet joints with slight right convexity curvature. No acute fracture is identified. IMPRESSION: Mild lower lumbar spondylosis without evidence of acute abnormality. Dictated by: Dictated on workstation # [id number]
== END ==
LOC: RAD 09:58
PROVIDERS: ATTEND Family Medicine
DX: M47.816 Spondylosis without myelopathy or radiculopathy, lumbar region (principal); R07.9 Chest pain, unspecified; M54.2 Cervicalgia; Z02.71 Encounter for disability determination
CPT/HCPCS: 71046; 72050; 72100